=== PATIENT | female | born 1930 | race Caucasian/White ===

== ENCOUNTER 2018-02-18 15:11 | Inpatient (IN) | payer MEDICARE, BC ==
[2018-02-18 15:32] VITALS: BP 140/71
[2018-02-18] MEDS ORDERED: Maalox 30 mL Cup PO PRN (15:34)
[2018-02-18] MEDS ORDERED: Magnesium Hydroxide (MOM) 30 mL UDC PO PRN (15:34)
[2018-02-19] MEDS: Atorvastatin Calcium 10 MG TAB PO SCH (10:04)
[2018-02-19] MEDS: Calcium Carb/Vit D 500 mg/200 U Tab PO SCH (10:05)
[2018-02-19] MEDS: POLYETHYLENE GLYCOL 3350 17 GM PACK PO SCH (13:34)
[2018-02-19] MEDS: Fish Oil 1,000 MG SGL PO SCH (13:34)
[2018-02-19] MEDS: Multivitamin Tab PO SCH (13:34)
--- NOTE | 2018-02-19 16:14 | Psychiatric Evaluation ---
DATE OF SERVICE: 02/18/2018 IDENTIFYING DATA: The patient is an 87-year-old woman, transferred from [facility]. Information obtained directly interviewing the patient as well as reviewing the admission papers and they are reliable. The patient has been cooperative during the interview, but is noted to be extremely confused and talking about her father who happened to be here last night, telling her that she does not need to change anything. The patient is reported to have been brought to the [facility] by her son for acute confusion and red eye for the past 2 days. The patient is reported to have been having behavioral changes and the patient is reported to have been sent to [facility] from where she has been brought again to the hospital for sepsis and the patient has been seen in the Emergency Room and the patient is reported to have a UA that was within normal limits. Chest x-ray was clean. She has the CT of the head that was also negative for any intracranial lesion and she has been observed over there and has been referred over here for further stabilization. The patient at this time has been in here and is not making much sense. PAST PSYCHIATRIC HISTORY: Details about the prior psychiatric hospitalization none known, but the patient has been reported to have been on mirtazapine 15 mg at nighttime, Seroquel 25 mg at bedtime and the patient was given some Haldol at the hospital. The patient at this time is confused and is not able to provide much information. MEDICAL HISTORY AND PHYSICAL EXAMINATION: Requested, done by Dr. Mcduffie. LEGAL PROBLEMS: None at this time. STRENGTH AND ASSETS: The patient has good family support. MENTAL STATUS EXAMINATION: The patient is an 87-year-old, looking her stated age, cooperative. Eye contact is fair. Mood is noted to be irritable. Affect is constricted. The patient is not making any sense. The patient is going on a tangent. The patient is stating that she has been talking to her father who does not want her to change anything. The patient is, at this time, confused. However, the patient is noted to be alert and aware that she is in the hospital. The patient's attention span and concentration are noted to be poor and patient is not able to provide any reasonable information as to her premorbid condition. The patient's short as well as long-term memory are also noted to be very poor. However, the patient is not presenting with any threats to harm self or others. DIAGNOSTIC IMPRESSION: AXIS I: Psychotic disorder, not otherwise specified. AXIS IB. Dementia and behavioral changes, secondary trait. IMMEDIATE TREATMENT PLAN: The patient is going to be observed on inpatient unit, provided with supportive psychotherapy. The patient is going to be closely monitored and encouraged to verbalize the concerns rather than to act out. Once stabilized, the patient is going to be discharged to [facility] to be followed up on an outpatient basis. PSYCHIATRIC# [id number]
[2018-02-20] MEDS: Calcium Carb/Vit D 500 mg/200 U Tab PO SCH (16:07)
[2018-02-20] MEDS: Atorvastatin Calcium 10 MG TAB PO SCH (16:07)
[2018-02-20] MEDS: Fish Oil 1,000 MG SGL PO SCH (16:08)
[2018-02-20] MEDS: Multivitamin Tab PO SCH (16:10)
[2018-02-20] MEDS: POLYETHYLENE GLYCOL 3350 17 GM PACK PO SCH (16:10)
--- NOTE | 2018-02-20 18:21 | Consultation ---
DATE OF CONSULTATION: 02/20/2018 REFERRING PHYSICIAN: Yessenia Marte MD TYPE OF CONSULTATION: Psychology. HISTORY OF PRESENT ILLNESS: The patient is an 87-year-old female. The patient was transferred here to the geropsychiatric unit from [facility]. The following is by record review and by the patient's self report. According to the record review, the patient had been exhibiting behavioral changes and was sent from her custodial facility to the hospital through the ER for possible sepsis. The patient was stabilized and then transferred here. At the time of the clinical interview, the patient denies any suicidal ideation, plan or intention. The patient presents as extremely confused and is not making much sense in her response to the clinical interview questions. PAST MEDICAL HISTORY: Please see history and physical by Dr. Mcduffie. PAST PSYCHIATRIC HISTORY: Records are unavailable at the time of this clinical interview. SUBSTANCE ABUSE HISTORY: The patient did not answer this question. PSYCHOSOCIAL HISTORY: The patient is a resident of a custodial facility. The patient is . The patient did not answer questions about having children. The patient did mention that she has family support. She did not answer questions about occupational or educational history or druze affiliation. The patient denied any history of physical or sexual abuse. She denies any current legal problems. MENTAL STATUS EXAMINATION: The patient appears to be her stated age. The patient's attitude is cooperative. Eye contact is fair. Speech is spontaneous, but somewhat slow and delayed. Mood is mildly irritable. Affect is constricted. Thought process shows to be very confused. The patient stated something about her father came to see her to tell her not to change things. The patient denied any suicidal ideation, plan or intention. She denies any auditory or visual hallucinations; however, further evaluation for visual hallucination is recommended. The patient's behavior has been reasonably redirectable. Impulse control is fair. Concentration is poor. The patient did not participate in the memory assessment. Sensorium is alert and oriented to self and place. She is aware that she is in the hospital for treatment, but does not comprehend what type of treatment. The patient did not participate in the interpretation of proverbs. Insight is poor. Judgment is compromised. DIAGNOSTIC IMPRESSION: AXIS I: 1. Psychotic disorder, not otherwise specified. 2. Dementia with behavioral disturbance. AXIS II: Deferred. AXIS III: Please see H and P by Dr. Mcduffie. TREATMENT PLAN: The patient has been seen by Dr. Marte for psychiatric evaluation and for the management of the patient's psychotropic medications. We will provide supportive psychotherapy to include reality orientation, differentiation and integration. We will provide coping strategies for phase of life issues. We will provide motivational enhancement for the patient to become compliant and stay compliant with all aspects of her care and treatment. We will continue supportive therapy throughout the patient's hospital stay. Thank you, Dr. Marte, for this consult and the opportunity to participate with you in this patient's care. JOB# [id number]
--- NOTE | 2018-02-21 05:15 | Progress Notes ---
DATE: 02/20/2018 SUBJECTIVE: Staff was spoken to. The patient is interviewed. Mood is noted to be anxious. Affect is appropriate. Not suicidal or homicidal, but the patient has been screaming and yelling and is impulsive. Continues to be paranoid and both short and long-term memory also noted to be poor. The patient is getting easily agitated, but the agitation is more towards the end of the day. ASSESSMENT: The patient is still impulsive. PLAN: To continue the patient with the supportive therapy and encourage the patient to verbalize the concerns rather than to act out. JOB# [id number]
--- NOTE | 2018-02-21 09:01 | History & Physical ---
ADMIT DATE: 02/21/2018 CHIEF COMPLAINT: Agitation. HISTORY OF PRESENT ILLNESS: This is an 87-year-old female, who was originally admitted from Geropsych Unit of [facility] on to which the patient was sent into a [facility] facility for stabilization and then transferred again to the Emergency Room for possible sepsis and once stabilized, the patient was transferred to [facility] for closer monitoring. REVIEW OF SYSTEMS: GENERAL: This is an 87-year-old female that appears as stated. No fever, no chills, no weakness. HEENT: No headache. No dizziness. EYES: No blurring of vision. No eye pain. NECK: No neck pain. No nuchal rigidity. CHEST: No chest pain. No palpitation. PULMONARY: No coughing. No shortness of breath. GASTROINTESTINAL: No abdominal pain. No constipation. No diarrhea. MUSCULOSKELETAL: No muscle pain. No joint pain. SOCIAL HISTORY: The patient originally lives at home, then was transferred to the hospital and then moved to a [facility] facility for stabilization. PSYCHIATRIC HISTORY: Includes dementia. PAST SURGICAL HISTORY: Unremarkable. FAMILY HISTORY: Unremarkable. PAST MEDICAL HISTORY: Includes hypertension, hyperlipidemia and osteoarthritis. PHYSICAL EXAMINATION: VITAL SIGNS: Temperature 98.5, heart rate 92, blood pressure 120/59, respirations 18, 96% on room air. GENERAL: This is an 87-year-old female that appears as stated, in no acute distress. HEAD: Atraumatic, normocephalic. EYES: Bilateral conjunctivae are clear. Bilateral pupils are equally round and reactive. NECK: Supple. No JVD. CARDIOVASCULAR: S1 and S2 without murmur. PULMONARY: Clear to auscultation. GASTROINTESTINAL: Soft and nontender without guarding. Positive bowel sounds. MUSCULOSKELETAL: No clubbing, no cyanosis noted. ASSESSMENT: 1. Dementia. 2. Hypertension. 3. Hyperlipidemia. 4. Osteoarthritis. PLAN: We will admit the patient to Geropsych Unit and we will follow up with a psychiatrist to monitor the patient's condition and behavior. We will do medication reconciliation accordingly. Treatment plans were discussed with the patient's nurse. Treatment plans were discussed with Dr. Mcduffie. JOB# [id number]
[2018-02-21] MEDS: Fish Oil 1,000 MG SGL PO SCH (09:16)
[2018-02-21] MEDS: Multivitamin Tab PO SCH (09:18)
[2018-02-21] MEDS: Calcium Carb/Vit D 500 mg/200 U Tab PO SCH (09:18)
[2018-02-21] MEDS: Atorvastatin Calcium 10 MG TAB PO SCH (09:18)
[2018-02-21] MEDS: POLYETHYLENE GLYCOL 3350 17 GM PACK PO SCH (09:18)
--- NOTE | 2018-02-21 17:12 | Progress Notes ---
DATE: 02/21/2018 SUBJECTIVE: Staff was spoken to. The patient is interviewed. Mood is noted to be irritable. Affect is constricted. Coping skills are noted to be still poor. Insight and judgment are noted to be impaired. The patient has been able to comply with the medication today. The patient has paranoia and patient is also very confused and demented. The patient is getting more of this confusion towards the end of the day. ASSESSMENT: The patient is still paranoid. PLAN: To continue the patient with the supportive therapy. We encouraged the patient to verbalize the visits and follow the patient up. JOB# [id number]
[2018-02-22] MEDS: Fish Oil 1,000 MG SGL PO SCH ×2 (09:44→10:00)
[2018-02-22] MEDS: Atorvastatin Calcium 10 MG TAB PO SCH ×2 (09:44→10:00)
[2018-02-22] MEDS: POLYETHYLENE GLYCOL 3350 17 GM PACK PO SCH ×2 (09:45→10:00)
[2018-02-22] MEDS: Multivitamin Tab PO SCH ×2 (09:45→10:00)
[2018-02-22] MEDS: Calcium Carb/Vit D 500 mg/200 U Tab PO SCH ×2 (09:45→10:00)
--- NOTE | 2018-02-22 13:06 | General Progress Note ---
Subjective - Review of Systems Events since last encounter: patient paranoid irritable Objective - Physical Exam Vitals and I&O: Vital Signs Temp 97.9 F 02/22/18 06:32 Pulse 72 02/22/18 06:32 Resp 20 02/22/18 06:32 BP 131/73 02/22/18 06:32 Pulse Ox 96 02/22/18 06:32 Intake & Output 02/21/18 02/22/18 02/22/18 18:59 06:59 18:59 Intake Total 1200 360 Balance 1200 360 Intake: Oral 1200 360 Other: # Voids 1 # Bowel Movements 1 Active Medications: Current Medications Acetaminophen (Tylenol) 650 mg PO Q4HR PRN PRN Reason: Mild Pain / Temp above 100 Stop: 04/19/18 15:33 Al Hydrox/Mg Hydrox/Simethicone (Maalox) 30 ml PO Q4HR PRN PRN Reason: GI DISTRESS Stop: 04/19/18 15:33 Atorvastatin Calcium (Lipitor) 20 mg PO DAILY [facility]; Protocol Stop: 04/20/18 08:59 Last Admin: 02/22/18 10:00 Dose: Not Given Calcium/Vitamin D (Oscal W/Vitamin D) 1 tab PO DAILY YE Stop: 04/20/18 08:59 Last Admin: 02/22/18 10:00 Dose: Not Given Docusate Sodium (Colace) 100 mg PO BID [facility] Stop: 04/19/18 16:59 Last Admin: 02/22/18 10:00 Dose: Not Given Fish Oil ([place] 3) 1,000 mg PO DAILY YE Stop: 04/20/18 08:59 Last Admin: 02/22/18 10:00 Dose: Not Given Lisinopril (Zestril) 20 mg PO DAILY [facility] Stop: 04/20/18 08:59 Last Admin: 02/22/18 10:00 Dose: Not Given Lorazepam (Ativan) 0.5 mg PO Q4HR PRN; Protocol PRN Reason: Anxiety Stop: 04/19/18 15:36 Last Admin: 02/21/18 20:33 Dose: 0.5 mg Magnesium Hydroxide (Milk Of Magnesia) 30 ml PO HS PRN PRN Reason: Constipation Metoprolol Tartrate (Lopressor) 37.5 mg PO DAILY [facility] Stop: 04/20/18 08:59 Last Admin: 02/22/18 09:49 Dose: Not Given Multivitamins/Vitamin C (Theragran) 1 tab PO DAILY YE Stop: 04/20/18 08:59 Last Admin: 02/22/18 10:00 Dose: Not Given Polyethylene Glycol (Miralax) 17 gm PO DAILY YE Stop: 04/20/18 08:59 Last Admin: 02/22/18 10:00 Dose: Not Given Prednisone (Deltasone) 50 mg PO DAILY YE Stop: 04/20/18 08:59 Last Admin: 02/22/18 10:00 Dose: Not Given Quetiapine Fumarate (Seroquel) 25 mg PO HS YE; Protocol Stop: 04/19/18 20:59 Last Admin: 02/21/18 20:33 Dose: 25 mg Zolpidem Tartrate (Ambien) 5 mg PO HS PRN PRN Reason: Insomnia Stop: 04/19/18 15:33 Nutritional Asmnt/Malnutr-PDOC - Dietary Evaluation Malnutrition Findings (Please click <Entered> for more info): Nutritional Asmnt/Malnutrition Start: 02/21/18 09: 03 Text: Status: Active Freq: Protocol: Document 02/21/18 09:03 ABI (Rec: 02/21/18 09:14 ABI [id number] [email or web address]) Nutritional Asmnt/Malnutrition Patient General Information Nutritional Screening Moderate Risk Diagnosis Psychosis Pertinent Medical Hx/Surgical Hx Dementia w/behavioral changes, A-Fib, HTN, Hyperlipidemia, Viral Conjuctivitis, and general muscle weakness Subjective Information Patient in activity room at time if visit. No identified nutrition related issues. Current Diet Order/ Nutrition Support 2gm Sodium Patient / S.O Not Indicated Pertinent Medications maalox, lipitor, oscal w/d, colace, omega 3, MOM, theragran, miralax Pertinent Labs No current labs Nutritional Hx/Data Height 1.57 m Height (Calculated Centimeters) 157.5 Current Weight (lbs) 53.977 kg Weight (Calculated Kilograms) 54.0 Weight (Calculated Grams) 00122.5 [place] Body Weight 110 % [place] Body Weight 108 Body Mass Index (BMI) 21.7 Recent Weight Change No Weight Status Approriate GI Symptoms GI Symptoms None Last BM none noted in EMR since admissio Difficult in: None Food Allergies No Cultural/Ethnic/Holiness Belief none indicated Usual diet at home unknown Skin Integrity/Comment: Intact, Georgi 17 Current %PO Fair (50-74%) Estimated Nutritional Goals BEE in Kcals: Using Current wt Calories/Kcals/Kg 25-30 kcal/kg using CBW 54.1kg Kcals Calculated 1177-6279 kcal/day Protein: Using Current wt Protein g/k-1.2 gm/kg using CBW Protein Calculated 55-65 gm/day Fluid: ml 3983-8687 ml/day (1 ml/kcal) Nutritional Problem 1. Problem Problem No nutrition diagnosis at this time Intervention/Recommendation Comments 1. Continue 2 gm sodium diet at this time (hx of HTN) as oral intake appears adequate to meet nutrient needs. Expected Outcomes/Goals Expected Outcomes/Goals Oral intake >75% of meals, weight stable, nutrition related labs WNL F/U LR 02/28
--- NOTE | 2018-02-22 18:07 | Progress Notes ---
DATE: 02/22/2018 SUBJECTIVE: Staff was spoken to. The patient is interviewed. Mood is noted to be irritable. Affect is constricted. The patient is reluctant to comply with the medications. Insight is noted to be still impaired. Impulse control is noted to be limited. The patient is very confused and paranoid. ASSESSMENT: The patient is still impulsive. PLAN: To admit the patient with the supportive therapy. Continue the patient with Seroquel and followup. The patient is not ready to be discharged to a lower level of care in view of her confusion and agitation. JOB# [id number]
[2018-02-23] MEDS: Atorvastatin Calcium 10 MG TAB PO SCH (09:33)
[2018-02-23] MEDS: Fish Oil 1,000 MG SGL PO SCH (09:33)
[2018-02-23] MEDS: Multivitamin Tab PO SCH (09:34)
[2018-02-23] MEDS: POLYETHYLENE GLYCOL 3350 17 GM PACK PO SCH (09:34)
[2018-02-23] MEDS: Calcium Carb/Vit D 500 mg/200 U Tab PO SCH (09:34)
--- NOTE | 2018-02-23 15:38 | General Progress Note ---
Subjective - Review of Systems Events since last encounter: patient is paranoid anxious Objective - Physical Exam Vitals and I&O: Vital Signs Temp 98.0 F 02/23/18 05:59 Pulse 62 02/23/18 09:34 Resp 19 02/23/18 05:59 BP 134/71 02/23/18 09:34 Pulse Ox 98 02/23/18 05:59 Intake & Output 02/22/18 02/23/18 02/23/18 18:59 06:59 18:59 Intake Total 1350 240 Balance 1350 240 Intake: Oral 1350 240 Other: # Voids 3 2 # Bowel Movements 0 0 Stool Characteristics Formed Active Medications: Current Medications Acetaminophen (Tylenol) 650 mg PO Q4HR PRN PRN Reason: Mild Pain / Temp above 100 Stop: 04/19/18 15:33 Al Hydrox/Mg Hydrox/Simethicone (Maalox) 30 ml PO Q4HR PRN PRN Reason: GI DISTRESS Stop: 04/19/18 15:33 Atorvastatin Calcium (Lipitor) 20 mg PO DAILY [facility]; Protocol Stop: 04/20/18 08:59 Last Admin: 02/23/18 09:33 Dose: 20 mg Calcium/Vitamin D (Oscal W/Vitamin D) 1 tab PO DAILY [facility] Stop: 04/20/18 08:59 Last Admin: 02/23/18 09:34 Dose: 1 tab Docusate Sodium (Colace) 100 mg PO BID [facility] Stop: 04/19/18 16:59 Last Admin: 02/23/18 09:35 Dose: Not Given Fish Oil ([place] 3) 1,000 mg PO DAILY [facility] Stop: 04/20/18 08:59 Last Admin: 02/23/18 09:33 Dose: 1,000 mg Lisinopril (Zestril) 20 mg PO DAILY [facility] Stop: 04/20/18 08:59 Last Admin: 02/23/18 09:34 Dose: 20 mg Lorazepam (Ativan) 0.5 mg PO Q4HR PRN; Protocol PRN Reason: Anxiety Stop: 04/19/18 15:36 Last Admin: 02/23/18 15:34 Dose: 0.5 mg Magnesium Hydroxide (Milk Of Magnesia) 30 ml PO HS PRN PRN Reason: Constipation Metoprolol Tartrate (Lopressor) 37.5 mg PO DAILY [facility] Stop: 04/20/18 08:59 Last Admin: 02/23/18 09:33 Dose: 37.5 mg Multivitamins/Vitamin C (Theragran) 1 tab PO DAILY [facility] Stop: 04/20/18 08:59 Last Admin: 02/23/18 09:34 Dose: 1 tab Polyethylene Glycol (Miralax) 17 gm PO DAILY YE Stop: 04/20/18 08:59 Last Admin: 02/23/18 09:34 Dose: 17 gm Prednisone (Deltasone) 50 mg PO DAILY [facility] Stop: 04/20/18 08:59 Last Admin: 02/23/18 15:34 Dose: Not Given Quetiapine Fumarate (Seroquel) 25 mg PO HS YE; Protocol Stop: 04/19/18 20:59 Last Admin: 02/22/18 21:22 Dose: Not Given Zolpidem Tartrate (Ambien) 5 mg PO HS PRN PRN Reason: Insomnia Stop: 04/19/18 15:33 Nutritional Asmnt/Malnutr-PDOC - Dietary Evaluation Malnutrition Findings (Please click <Entered> for more info): Nutritional Asmnt/Malnutrition Start: 02/21/18 09: 03 Text: Status: Active Freq: Protocol: Document 02/21/18 09:03 ABI (Rec: 02/21/18 09:14 ABI [email or web address]- [email or web address]) Nutritional Asmnt/Malnutrition Patient General Information Nutritional Screening Moderate Risk Diagnosis Psychosis Pertinent Medical Hx/Surgical Hx Dementia w/behavioral changes, A-Fib, HTN, Hyperlipidemia, Viral Conjuctivitis, and general muscle weakness Subjective Information Patient in activity room at time if visit. No identified nutrition related issues. Current Diet Order/ Nutrition Support 2gm Sodium Patient / S.O Not Indicated Pertinent Medications maalox, lipitor, oscal w/d, colace, omega 3, MOM, theragran, miralax Pertinent Labs No current labs Nutritional Hx/Data Height 1.57 m Height (Calculated Centimeters) 157.5 Current Weight (lbs) 53.977 kg Weight (Calculated Kilograms) 54.0 Weight (Calculated Grams) 38194.5 [place] Body Weight 110 % [place] Body Weight 108 Body Mass Index (BMI) 21.7 Recent Weight Change No Weight Status Approriate GI Symptoms GI Symptoms None Last BM none noted in EMR since admissio Difficult in: None Food Allergies No Cultural/Ethnic/Yazidi Belief none indicated Usual diet at home unknown Skin Integrity/Comment: Intact, Georgi 17 Current %PO Fair (50-74%) Estimated Nutritional Goals BEE in Kcals: Using Current wt Calories/Kcals/Kg 25-30 kcal/kg using CBW 54.1kg Kcals Calculated 9309-6520 kcal/day Protein: Using Current wt Protein g/k-1.2 gm/kg using CBW Protein Calculated 55-65 gm/day Fluid: ml 7763-4306 ml/day (1 ml/kcal) Nutritional Problem 1. Problem Problem No nutrition diagnosis at this time Intervention/Recommendation Comments 1. Continue 2 gm sodium diet at this time (hx of HTN) as oral intake appears adequate to meet nutrient needs. Expected Outcomes/Goals Expected Outcomes/Goals Oral intake >75% of meals, weight stable, nutrition related labs WNL F/U LR 02/28
--- NOTE | 2018-02-24 02:17 | Progress Notes ---
DATE: 02/23/2018 PSYCHIATRIC PROGRESS NOTE SUBJECTIVE: Staff was spoken to. The patient is interviewed. Mood is noted to be irritable. Affect is constricted. Insight and judgment noted to be still impaired. Impulse control is noted to be limited. Coping skills are noted to be limited. The patient has been very confused and demented. Attention span and concentration are noted to be poor. The patient is going on a tangent. ASSESSMENT: The patient is still psychotic and demented. PLAN: Continue the patient with supportive therapy. I encouraged the patient to verbalize the concerns rather than to act out. JOB# [id number]
[2018-02-24] MEDS: Multivitamin Tab PO SCH (10:24)
[2018-02-24] MEDS: Fish Oil 1,000 MG SGL PO SCH (10:26)
[2018-02-24] MEDS: Atorvastatin Calcium 10 MG TAB PO SCH (10:26)
[2018-02-24] MEDS: Calcium Carb/Vit D 500 mg/200 U Tab PO SCH (10:26)
[2018-02-24] MEDS: POLYETHYLENE GLYCOL 3350 17 GM PACK PO SCH (10:38)
--- NOTE | 2018-02-24 16:04 | Progress Notes ---
DATE: 02/24/2018 SUBJECTIVE: Staff was spoken to. The patient is interviewed. Mood is noted to be irritable. Affect is constricted. The patient is still confused and getting agitated. The patient has paranoia, but denies any ____ hallucinations. The patient's short as well as long-term memory are noted to be poor at this time. No side effects of the Seroquel are noted. ASSESSMENT: The patient is still demented and confused. PLAN: To continue the patient with the supportive therapy and followup. JOB# [id number]
[2018-02-25] MEDS: Calcium Carb/Vit D 500 mg/200 U Tab PO SCH (09:21)
[2018-02-25] MEDS: Multivitamin Tab PO SCH (09:21)
[2018-02-25] MEDS: Atorvastatin Calcium 10 MG TAB PO SCH (09:21)
[2018-02-25] MEDS: Fish Oil 1,000 MG SGL PO SCH (09:21)
[2018-02-25] MEDS: POLYETHYLENE GLYCOL 3350 17 GM PACK PO SCH (09:21)
--- NOTE | 2018-02-25 14:10 | General Progress Note ---
Subjective - Review of Systems Events since last encounter: patient still confused denies pain Objective - Physical Exam Vitals and I&O: Vital Signs Temp 98.2 F 02/25/18 06:05 Pulse 75 02/25/18 12:09 Resp 19 02/25/18 06:05 BP 111/61 02/25/18 12:09 Pulse Ox 98 02/25/18 06:05 Intake & Output 02/24/18 02/25/18 02/25/18 18:59 06:59 18:59 Intake Total 120 Balance 120 Intake: Oral 120 Other: # Voids 3 # Bowel Movements 0 Active Medications: Current Medications Acetaminophen (Tylenol) 650 mg PO Q4HR PRN PRN Reason: Mild Pain / Temp above 100 Stop: 04/19/18 15:33 Al Hydrox/Mg Hydrox/Simethicone (Maalox) 30 ml PO Q4HR PRN PRN Reason: GI DISTRESS Stop: 04/19/18 15:33 Atorvastatin Calcium (Lipitor) 20 mg PO DAILY [facility]; Protocol Stop: 04/20/18 08:59 Last Admin: 02/25/18 09:21 Dose: 20 mg Calcium/Vitamin D (Oscal W/Vitamin D) 1 tab PO DAILY [facility] Stop: 04/20/18 08:59 Last Admin: 02/25/18 09:21 Dose: 1 tab Docusate Sodium (Colace) 100 mg PO BID [facility] Stop: 04/19/18 16:59 Last Admin: 02/25/18 09:21 Dose: 100 mg Fish Oil ([place] 3) 1,000 mg PO DAILY YE Stop: 04/20/18 08:59 Last Admin: 02/25/18 09:21 Dose: 1,000 mg Lisinopril (Zestril) 20 mg PO DAILY [facility] Stop: 04/20/18 08:59 Last Admin: 02/25/18 12:09 Dose: Not Given Lorazepam (Ativan) 0.5 mg PO Q4HR PRN; Protocol PRN Reason: Anxiety Stop: 04/19/18 15:36 Last Admin: 02/25/18 12:08 Dose: 0.5 mg Magnesium Hydroxide (Milk Of Magnesia) 30 ml PO HS PRN PRN Reason: Constipation Metoprolol Tartrate (Lopressor) 37.5 mg PO DAILY [facility] Stop: 04/20/18 08:59 Last Admin: 02/25/18 12:09 Dose: Not Given Multivitamins/Vitamin C (Theragran) 1 tab PO DAILY YE Stop: 04/20/18 08:59 Last Admin: 02/25/18 09:21 Dose: 1 tab Polyethylene Glycol (Miralax) 17 gm PO DAILY [facility] Stop: 04/20/18 08:59 Last Admin: 02/25/18 09:21 Dose: 17 gm Prednisone (Deltasone) 50 mg PO DAILY [facility] Stop: 04/20/18 08:59 Last Admin: 02/25/18 09:21 Dose: 50 mg Quetiapine Fumarate (Seroquel) 25 mg PO HS [facility]; Protocol Stop: 04/19/18 20:59 Last Admin: 02/24/18 20:27 Dose: 25 mg Zolpidem Tartrate (Ambien) 5 mg PO HS PRN PRN Reason: Insomnia Stop: 04/19/18 15:33 Last Admin: 02/24/18 20:27 Dose: 5 mg Nutritional Asmnt/Malnutr-PDOC - Dietary Evaluation Malnutrition Findings (Please click <Entered> for more info): Nutritional Asmnt/Malnutrition Start: 02/21/18 09: 03 Text: Status: Active Freq: Protocol: Document 02/21/18 09:03 ABI (Rec: 02/21/18 09:14 ABI BARON- [email or web address]) Nutritional Asmnt/Malnutrition Patient General Information Nutritional Screening Moderate Risk Diagnosis Psychosis Pertinent Medical Hx/Surgical Hx Dementia w/behavioral changes, A-Fib, HTN, Hyperlipidemia, Viral Conjuctivitis, and general muscle weakness Subjective Information Patient in activity room at time if visit. No identified nutrition related issues. Current Diet Order/ Nutrition Support 2gm Sodium Patient / S.O Not Indicated Pertinent Medications maalox, lipitor, oscal w/d, colace, omega 3, MOM, theragran, miralax Pertinent Labs No current labs Nutritional Hx/Data Height 1.57 m Height (Calculated Centimeters) 157.5 Current Weight (lbs) 53.977 kg Weight (Calculated Kilograms) 54.0 Weight (Calculated Grams) 11886.5 [place] Body Weight 110 % [place] Body Weight 108 Body Mass Index (BMI) 21.7 Recent Weight Change No Weight Status Approriate GI Symptoms GI Symptoms None Last BM none noted in EMR since admissio Difficult in: None Food Allergies No Cultural/Ethnic/Rastafarian Belief none indicated Usual diet at home unknown Skin Integrity/Comment: Intact, Georgi 17 Current %PO Fair (50-74%) Estimated Nutritional Goals BEE in Kcals: Using Current wt Calories/Kcals/Kg 25-30 kcal/kg using CBW 54.1kg Kcals Calculated 3840-6018 kcal/day Protein: Using Current wt Protein g/k-1.2 gm/kg using CBW Protein Calculated 55-65 gm/day Fluid: ml 3612-5508 ml/day (1 ml/kcal) Nutritional Problem 1. Problem Problem No nutrition diagnosis at this time Intervention/Recommendation Comments 1. Continue 2 gm sodium diet at this time (hx of HTN) as oral intake appears adequate to meet nutrient needs. Expected Outcomes/Goals Expected Outcomes/Goals Oral intake >75% of meals, weight stable, nutrition related labs WNL F/U LR 02/28
--- NOTE | 2018-02-26 01:27 | Progress Notes ---
DATE: 02/25/2018 PSYCHIATRIC PROGRESS NOTE SUBJECTIVE: Staff was spoken to. The patient is interviewed. Mood is noted to be irritable. Affect is constricted. The patient is reported to be aggressive and the patient has to be given a dose of Ativan to calm her down. The patient is not able to contact for safety today. Insight and judgment are noted to be still impaired. ASSESSMENT: The patient is still impulsive. PLAN: To continue the patient with the supportive therapy and followup. JOB# [id number]
[2018-02-26] MEDS: POLYETHYLENE GLYCOL 3350 17 GM PACK PO SCH (09:45)
[2018-02-26] MEDS: Fish Oil 1,000 MG SGL PO SCH (09:50)
[2018-02-26] MEDS: Atorvastatin Calcium 10 MG TAB PO SCH (09:50)
[2018-02-26] MEDS: Calcium Carb/Vit D 500 mg/200 U Tab PO SCH (09:50)
[2018-02-26] MEDS: Multivitamin Tab PO SCH (09:50)
--- NOTE | 2018-02-26 11:36 | General Progress Note ---
Subjective - Review of Systems Events since last encounter: patient still irritable and impulsive denies pain Objective - Physical Exam Vitals and I&O: Vital Signs Temp 97.8 F 02/26/18 06:40 Pulse 64 02/26/18 06:40 Resp 18 02/26/18 06:40 BP 110/66 02/26/18 06:40 Pulse Ox 96 02/26/18 06:40 Intake & Output 02/25/18 02/26/18 02/26/18 18:59 06:59 18:59 Intake Total 700 120 Balance 700 120 Intake: Oral 700 120 Other: # Voids 3 3 # Bowel Movements 1 Active Medications: Current Medications Acetaminophen (Tylenol) 650 mg PO Q4HR PRN PRN Reason: Mild Pain / Temp above 100 Stop: 04/19/18 15:33 Al Hydrox/Mg Hydrox/Simethicone (Maalox) 30 ml PO Q4HR PRN PRN Reason: GI DISTRESS Stop: 04/19/18 15:33 Atorvastatin Calcium (Lipitor) 20 mg PO DAILY [facility]; Protocol Stop: 04/20/18 08:59 Last Admin: 02/25/18 09:21 Dose: 20 mg Calcium/Vitamin D (Oscal W/Vitamin D) 1 tab PO DAILY [facility] Stop: 04/20/18 08:59 Last Admin: 02/25/18 09:21 Dose: 1 tab Docusate Sodium (Colace) 100 mg PO BID [facility] Stop: 04/19/18 16:59 Last Admin: 02/25/18 16:28 Dose: 100 mg Fish Oil ([place] 3) 1,000 mg PO DAILY [facility] Stop: 04/20/18 08:59 Last Admin: 02/25/18 09:21 Dose: 1,000 mg Lisinopril (Zestril) 20 mg PO DAILY [facility] Stop: 04/20/18 08:59 Last Admin: 02/25/18 12:09 Dose: Not Given Lorazepam (Ativan) 0.5 mg PO Q4HR PRN; Protocol PRN Reason: Anxiety Stop: 04/19/18 15:36 Last Admin: 02/25/18 12:08 Dose: 0.5 mg Magnesium Hydroxide (Milk Of Magnesia) 30 ml PO HS PRN PRN Reason: Constipation Metoprolol Tartrate (Lopressor) 37.5 mg PO DAILY [facility] Stop: 04/20/18 08:59 Last Admin: 02/25/18 12:09 Dose: Not Given Multivitamins/Vitamin C (Theragran) 1 tab PO DAILY [facility] Stop: 04/20/18 08:59 Last Admin: 02/25/18 09:21 Dose: 1 tab Polyethylene Glycol (Miralax) 17 gm PO DAILY [facility] Stop: 04/20/18 08:59 Last Admin: 02/25/18 09:21 Dose: 17 gm Prednisone (Deltasone) 50 mg PO DAILY [facility] Stop: 04/20/18 08:59 Last Admin: 02/25/18 09:21 Dose: 50 mg Quetiapine Fumarate (Seroquel) 25 mg PO HS [facility]; Protocol Stop: 04/19/18 20:59 Last Admin: 02/25/18 20:58 Dose: 25 mg Zolpidem Tartrate (Ambien) 5 mg PO HS PRN PRN Reason: Insomnia Stop: 04/19/18 15:33 Last Admin: 02/25/18 20:58 Dose: 5 mg Nutritional Asmnt/Malnutr-PDOC - Dietary Evaluation Malnutrition Findings (Please click <Entered> for more info): Nutritional Asmnt/Malnutrition Start: 02/21/18 09: 03 Text: Status: Active Freq: Protocol: Document 02/21/18 09:03 ABI (Rec: 02/21/18 09:14 ABI BARON- [email or web address]) Nutritional Asmnt/Malnutrition Patient General Information Nutritional Screening Moderate Risk Diagnosis Psychosis Pertinent Medical Hx/Surgical Hx Dementia w/behavioral changes, A-Fib, HTN, Hyperlipidemia, Viral Conjuctivitis, and general muscle weakness Subjective Information Patient in activity room at time if visit. No identified nutrition related issues. Current Diet Order/ Nutrition Support 2gm Sodium Patient / S.O Not Indicated Pertinent Medications maalox, lipitor, oscal w/d, colace, omega 3, MOM, theragran, miralax Pertinent Labs No current labs Nutritional Hx/Data Height 1.57 m Height (Calculated Centimeters) 157.5 Current Weight (lbs) 53.977 kg Weight (Calculated Kilograms) 54.0 Weight (Calculated Grams) 40522.5 [place] Body Weight 110 % [place] Body Weight 108 Body Mass Index (BMI) 21.7 Recent Weight Change No Weight Status Approriate GI Symptoms GI Symptoms None Last BM none noted in EMR since admissio Difficult in: None Food Allergies No Cultural/Ethnic/Confucianism Belief none indicated Usual diet at home unknown Skin Integrity/Comment: Intact, Georgi 17 Current %PO Fair (50-74%) Estimated Nutritional Goals BEE in Kcals: Using Current wt Calories/Kcals/Kg 25-30 kcal/kg using CBW 54.1kg Kcals Calculated 0736-5966 kcal/day Protein: Using Current wt Protein g/k-1.2 gm/kg using CBW Protein Calculated 55-65 gm/day Fluid: ml 0765-6712 ml/day (1 ml/kcal) Nutritional Problem 1. Problem Problem No nutrition diagnosis at this time Intervention/Recommendation Comments 1. Continue 2 gm sodium diet at this time (hx of HTN) as oral intake appears adequate to meet nutrient needs. Expected Outcomes/Goals Expected Outcomes/Goals Oral intake >75% of meals, weight stable, nutrition related labs WNL F/U LR 02/28
--- NOTE | 2018-02-26 22:08 | Progress Notes ---
DATE: 02/26/2018 SUBJECTIVE: Staff was spoken to. The patient is interviewed. Mood is noted to be irritable. Affect is constricted. The patient's impulsivity still concerns. Insight and judgment are noted to be still impaired. The patient is reported to have been out of control yesterday and has to be given a shot. Today, she seems to be calming down. ASSESSMENT: The patient is still impulsive. PLAN: To continue the patient with the supportive therapy. I encouraged the patient to verbalize the concerns. The patient is going to be closely monitored for aggressive behavior. JOB# [id number]
[2018-02-27] MEDS: Multivitamin Tab PO SCH (09:30)
[2018-02-27] MEDS: Atorvastatin Calcium 10 MG TAB PO SCH (10:36)
[2018-02-27] MEDS: Fish Oil 1,000 MG SGL PO SCH (10:37)
[2018-02-27] MEDS: Calcium Carb/Vit D 500 mg/200 U Tab PO SCH (10:37)
[2018-02-27] MEDS: POLYETHYLENE GLYCOL 3350 17 GM PACK PO SCH (10:42)
--- NOTE | 2018-02-28 03:55 | Progress Notes ---
DATE: 02/27/2018 SUBJECTIVE: Staff was spoken to. The patient is interviewed. Mood is noted to be irritable. Affect is constricted. The patient has been very agitated. The patient is screaming and yelling and is stating that she is going to be killing herself. The patient has been given a dose of Ativan at 12 o'clock and again the patient has to be given an extra dose. The patient at this time is not able to contract for safety. The patient has been having severe agitation. ASSESSMENT: The patient is not ready to be discharged to a lower level of care yet. PLAN: To increase the dose on the Seroquel to 25 mg twice a day and follow the patient with the supportive therapy. JOB# [id number]
[2018-02-28] MEDS: Calcium Carb/Vit D 500 mg/200 U Tab PO SCH (09:24)
[2018-02-28] MEDS: POLYETHYLENE GLYCOL 3350 17 GM PACK PO SCH (09:24)
[2018-02-28] MEDS: Multivitamin Tab PO SCH (09:24)
[2018-02-28] MEDS: Fish Oil 1,000 MG SGL PO SCH (09:24)
[2018-02-28] MEDS: Atorvastatin Calcium 10 MG TAB PO SCH (09:24)
--- NOTE | 2018-02-28 09:56 | Internal Medicine Prog Note ---
Internal Medicine Subjective - Subjective Service Date: 02/28/18 Patient seen and examined:: with staff Patient is:: awake Per staff patient has:: tolerating meds Internal Medicine Objective - Physical Exam Vitals and I&O: Vital Signs Temp 97.6 F 02/28/18 06:07 Pulse 88 02/28/18 09:27 Resp 20 02/28/18 06:07 BP 145/86 02/28/18 09:27 Pulse Ox 99 02/28/18 06:07 Intake & Output 02/27/18 02/28/18 02/28/18 18:59 06:59 18:59 Intake Total 1200 240 Output Total 1 Balance 1199 240 Intake: Oral 1200 240 Output: Stool 1 Other: # Voids 3 # Bowel Movements 0 Active Medications: Current Medications Acetaminophen (Tylenol) 650 mg PO Q4HR PRN PRN Reason: Mild Pain / Temp above 100 Stop: 04/19/18 15:33 Al Hydrox/Mg Hydrox/Simethicone (Maalox) 30 ml PO Q4HR PRN PRN Reason: GI DISTRESS Stop: 04/19/18 15:33 Atorvastatin Calcium (Lipitor) 20 mg PO DAILY [facility]; Protocol Stop: 04/20/18 08:59 Last Admin: 02/28/18 09:24 Dose: 20 mg Calcium/Vitamin D (Oscal W/Vitamin D) 1 tab PO DAILY [facility] Stop: 04/20/18 08:59 Last Admin: 02/28/18 09:24 Dose: 1 tab Docusate Sodium (Colace) 100 mg PO BID [facility] Stop: 04/19/18 16:59 Last Admin: 02/28/18 09:24 Dose: 100 mg Fish Oil ([place] 3) 1,000 mg PO DAILY [facility] Stop: 04/20/18 08:59 Last Admin: 02/28/18 09:24 Dose: 1,000 mg Lisinopril (Zestril) 20 mg PO DAILY [facility] Stop: 04/20/18 08:59 Last Admin: 02/28/18 09:26 Dose: 20 mg Lorazepam (Ativan) 0.5 mg PO Q4HR PRN; Protocol PRN Reason: Anxiety Stop: 04/19/18 15:36 Last Admin: 02/27/18 23:10 Dose: 0.5 mg Magnesium Hydroxide (Milk Of Magnesia) 30 ml PO HS PRN PRN Reason: Constipation Metoprolol Tartrate (Lopressor) 37.5 mg PO DAILY [facility] Stop: 04/20/18 08:59 Last Admin: 02/28/18 09:27 Dose: 37.5 mg Multivitamins/Vitamin C (Theragran) 1 tab PO DAILY [facility] Stop: 04/20/18 08:59 Last Admin: 02/28/18 09:24 Dose: 1 tab Polyethylene Glycol (Miralax) 17 gm PO DAILY [facility] Stop: 04/20/18 08:59 Last Admin: 02/28/18 09:24 Dose: 17 gm Prednisone (Deltasone) 50 mg PO DAILY [facility] Stop: 04/20/18 08:59 Last Admin: 02/28/18 09:25 Dose: 50 mg Quetiapine Fumarate (Seroquel) 25 mg PO BID [facility]; Protocol Stop: 04/29/18 08:59 Last Admin: 02/28/18 09:25 Dose: 25 mg Zolpidem Tartrate (Ambien) 5 mg PO HS PRN PRN Reason: Insomnia Stop: 04/19/18 15:33 Last Admin: 02/27/18 20:22 Dose: 5 mg General: alert HEENT: NC/AT, PERRLA Neck: Supple Lungs: CTAB Cardiovascular: RRR Abdomen: soft, non-tender, non-distended, positive bowel sound Neurological: alert Internal Medicine Assmt/Plan - Assessment Assessment: dementia htn hyperlipidemia oa - Plan Plan: cpm Nutritional Asmnt/Malnutr-PDOC - Dietary Evaluation Malnutrition Findings (Please click <Entered> for more info): Nutritional Asmnt/Malnutrition Start: 02/21/18 09: 03 Text: Status: Complete Freq: Protocol: Document 02/21/18 09:03 ABI (Rec: 02/21/18 09:14 AIB BARON- FNS1) Nutritional Asmnt/Malnutrition Patient General Information Nutritional Screening Moderate Risk Diagnosis Psychosis Pertinent Medical Hx/Surgical Hx Dementia w/behavioral changes, A-Fib, HTN, Hyperlipidemia, Viral Conjuctivitis, and general muscle weakness Subjective Information Patient in activity room at time if visit. No identified nutrition related issues. Current Diet Order/ Nutrition Support 2gm Sodium Patient / S.O Not Indicated Pertinent Medications maalox, lipitor, oscal w/d, colace, omega 3, MOM, theragran, miralax Pertinent Labs No current labs Nutritional Hx/Data Height 5 ft 2 in Height (Calculated Centimeters) 157.5 Current Weight (lbs) 119 lb Weight (Calculated Kilograms) 54.0 Weight (Calculated Grams) 27036.5 [place] Body Weight 110 % [place] Body Weight 108 Body Mass Index (BMI) 21.7 Recent Weight Change No Weight Status Approriate GI Symptoms GI Symptoms None Last BM none noted in EMR since admissio Difficult in: None Food Allergies No Cultural/Ethnic/Sikhism Belief none indicated Usual diet at home unknown Skin Integrity/Comment: Intact, Georgi 17 Current %PO Fair (50-74%) Estimated Nutritional Goals BEE in Kcals: Using Current wt Calories/Kcals/Kg 25-30 kcal/kg using CBW 54.1kg Kcals Calculated 8635-9772 kcal/day Protein: Using Current wt Protein g/k-1.2 gm/kg using CBW Protein Calculated 55-65 gm/day Fluid: ml 4468-1103 ml/day (1 ml/kcal) Nutritional Problem 1. Problem Problem No nutrition diagnosis at this time Intervention/Recommendation Comments 1. Continue 2 gm sodium diet at this time (hx of HTN) as oral intake appears adequate to meet nutrient needs. Expected Outcomes/Goals Expected Outcomes/Goals Oral intake >75% of meals, weight stable, nutrition related labs WNL F/U LR 02/28
--- NOTE | 2018-02-28 23:50 | Progress Notes ---
DATE: 02/28/2018 SUBJECTIVE: Staff was spoken to. The patient is interviewed. Mood is noted to be irritable. Affect is constricted. The patient has been placed on the Seroquel that was given 25 mg at night time and the patient has been continuing to have acute mood swings and the patient has been not able to calm down, mainly towards the end of the day. In view of her impulsivity, it is decided to start the patient on the Depakote 125 mg twice a day. I encouraged the patient to verbalize the concerns rather than to act out. The patient has been having the sundowning symptoms. JOB# [id number]
[2018-03-01] MEDS: Calcium Carb/Vit D 500 mg/200 U Tab PO SCH (10:10)
[2018-03-01] MEDS: Atorvastatin Calcium 10 MG TAB PO SCH (10:10)
[2018-03-01] MEDS: Fish Oil 1,000 MG SGL PO SCH (10:11)
[2018-03-01] MEDS: Multivitamin Tab PO SCH (10:12)
[2018-03-01] MEDS: POLYETHYLENE GLYCOL 3350 17 GM PACK PO SCH (10:13)
--- NOTE | 2018-03-01 10:36 | Progress Notes ---
DATE: 03/01/2018 SUBJECTIVE: Staff was spoken to. The patient is interviewed. Mood is noted to be less irritable. The patient is isolated and withdrawn. Coping skills are noted to be still poor. The patient has a tendency to scream and yell. The patient has been placed on the Seroquel and the Depakote has been added for her impulsivity. The patient is being closely monitored at this time for her aggressive behavior. The patient continues to be paranoid at this time and demented. PLAN: To continue the patient with the supportive therapy. I encouraged the patient to verbalize the concerns rather than to act out. JOB# [id number]
--- NOTE | 2018-03-01 12:58 | General Progress Note ---
Subjective - Review of Systems Events since last encounter: patient is less irritable today still withdrawn Objective - Physical Exam Vitals and I&O: Vital Signs Temp 96.8 F 03/01/18 05:47 Pulse 77 03/01/18 10:12 Resp 18 03/01/18 05:47 BP 107/77 03/01/18 10:12 Pulse Ox 100 03/01/18 05:47 Intake & Output 02/28/18 03/01/18 03/01/18 18:59 06:59 18:59 Intake Total 700 Balance 700 Intake: Oral 700 Other: # Voids 2 Active Medications: Current Medications Acetaminophen (Tylenol) 650 mg PO Q4HR PRN PRN Reason: Mild Pain / Temp above 100 Stop: 04/19/18 15:33 Al Hydrox/Mg Hydrox/Simethicone (Maalox) 30 ml PO Q4HR PRN PRN Reason: GI DISTRESS Stop: 04/19/18 15:33 Atorvastatin Calcium (Lipitor) 20 mg PO DAILY [facility]; Protocol Stop: 04/20/18 08:59 Last Admin: 03/01/18 10:10 Dose: 20 mg Calcium/Vitamin D (Oscal W/Vitamin D) 1 tab PO DAILY [facility] Stop: 04/20/18 08:59 Last Admin: 03/01/18 10:10 Dose: 1 tab Divalproex Sodium (Depakote Dr) 125 mg PO Q12HR [facility]; Protocol Stop: 04/29/18 20:59 Docusate Sodium (Colace) 100 mg PO BID [facility] Stop: 04/19/18 16:59 Last Admin: 03/01/18 10:11 Dose: 100 mg Fish Oil ([place] 3) 1,000 mg PO DAILY [facility] Stop: 04/20/18 08:59 Last Admin: 03/01/18 10:11 Dose: 1,000 mg Lisinopril (Zestril) 20 mg PO DAILY [facility] Stop: 04/20/18 08:59 Last Admin: 03/01/18 10:12 Dose: Not Given Lorazepam (Ativan) 0.5 mg PO Q4HR PRN; Protocol PRN Reason: Anxiety Stop: 04/19/18 15:36 Last Admin: 02/28/18 23:00 Dose: 0.5 mg Magnesium Hydroxide (Milk Of Magnesia) 30 ml PO HS PRN PRN Reason: Constipation Metoprolol Tartrate (Lopressor) 37.5 mg PO DAILY [facility] Stop: 04/20/18 08:59 Last Admin: 03/01/18 10:13 Dose: Not Given Multivitamins/Vitamin C (Theragran) 1 tab PO DAILY [facility] Stop: 04/20/18 08:59 Last Admin: 03/01/18 10:12 Dose: 1 tab Polyethylene Glycol (Miralax) 17 gm PO DAILY [facility] Stop: 04/20/18 08:59 Last Admin: 03/01/18 10:13 Dose: 17 gm Prednisone (Deltasone) 50 mg PO DAILY [facility] Stop: 04/20/18 08:59 Last Admin: 03/01/18 10:13 Dose: 50 mg Quetiapine Fumarate (Seroquel) 25 mg PO BID [facility]; Protocol Stop: 04/29/18 08:59 Last Admin: 03/01/18 10:13 Dose: 25 mg Zolpidem Tartrate (Ambien) 5 mg PO HS PRN PRN Reason: Insomnia Stop: 04/19/18 15:33 Last Admin: 02/28/18 21:01 Dose: 5 mg General: No acute distress HEENT: Atraumatic Neck: Supple, JVD Cardiovascular: Regular rate, Normal S1, Normal S2 Lungs: Clear to auscultation Abdomen: Bowel sounds Nutritional Asmnt/Malnutr-PDOC - Dietary Evaluation Malnutrition Findings (Please click <Entered> for more info): Nutritional Asmnt/Malnutrition Start: 02/21/18 09: 03 Text: Status: Complete Freq: Protocol: Document 02/21/18 09:03 ABI (Rec: 02/21/18 09:14 ABI BARON- [email or web address]) Nutritional Asmnt/Malnutrition Patient General Information Nutritional Screening Moderate Risk Diagnosis Psychosis Pertinent Medical Hx/Surgical Hx Dementia w/behavioral changes, A-Fib, HTN, Hyperlipidemia, Viral Conjuctivitis, and general muscle weakness Subjective Information Patient in activity room at time if visit. No identified nutrition related issues. Current Diet Order/ Nutrition Support 2gm Sodium Patient / S.O Not Indicated Pertinent Medications maalox, lipitor, oscal w/d, colace, omega 3, MOM, theragran, miralax Pertinent Labs No current labs Nutritional Hx/Data Height 1.57 m Height (Calculated Centimeters) 157.5 Current Weight (lbs) 53.977 kg Weight (Calculated Kilograms) 54.0 Weight (Calculated Grams) 04413.5 [place] Body Weight 110 % [place] Body Weight 108 Body Mass Index (BMI) 21.7 Recent Weight Change No Weight Status Approriate GI Symptoms GI Symptoms None Last BM none noted in EMR since admissio Difficult in: None Food Allergies No Cultural/Ethnic/Anglican Belief none indicated Usual diet at home unknown Skin Integrity/Comment: Intact, Georgi 17 Current %PO Fair (50-74%) Estimated Nutritional Goals BEE in Kcals: Using Current wt Calories/Kcals/Kg 25-30 kcal/kg using CBW 54.1kg Kcals Calculated 1949-3082 kcal/day Protein: Using Current wt Protein g/k-1.2 gm/kg using CBW Protein Calculated 55-65 gm/day Fluid: ml 6098-6011 ml/day (1 ml/kcal) Nutritional Problem 1. Problem Problem No nutrition diagnosis at this time Intervention/Recommendation Comments 1. Continue 2 gm sodium diet at this time (hx of HTN) as oral intake appears adequate to meet nutrient needs. Expected Outcomes/Goals Expected Outcomes/Goals Oral intake >75% of meals, weight stable, nutrition related labs WNL F/U LR 02/28
[2018-03-02] MEDS: Atorvastatin Calcium 10 MG TAB PO SCH (09:29)
[2018-03-02] MEDS: Fish Oil 1,000 MG SGL PO SCH (09:29)
[2018-03-02] MEDS: Calcium Carb/Vit D 500 mg/200 U Tab PO SCH (09:29)
[2018-03-02] MEDS: POLYETHYLENE GLYCOL 3350 17 GM PACK PO SCH (09:29)
[2018-03-02] MEDS: Multivitamin Tab PO SCH (09:29)
--- NOTE | 2018-03-02 16:40 | Internal Medicine Prog Note ---
Internal Medicine Subjective - Subjective Patient is:: awake Per staff patient has:: tolerating meds Internal Medicine Objective - Physical Exam Vitals and I&O: Vital Signs Temp 97.8 F 03/02/18 14:00 Pulse 73 03/02/18 14:00 Resp 20 03/02/18 14:00 BP 230/80 03/02/18 14:00 Pulse Ox 97 03/02/18 14:00 Intake & Output 03/01/18 03/02/18 03/02/18 18:59 06:59 18:59 Intake Total 700 180 Balance 700 180 Intake: Oral 700 180 Other: # Voids 3 1 # Bowel Movements 0 0 Active Medications: Current Medications Acetaminophen (Tylenol) 650 mg PO Q4HR PRN PRN Reason: Mild Pain / Temp above 100 Stop: 04/19/18 15:33 Al Hydrox/Mg Hydrox/Simethicone (Maalox) 30 ml PO Q4HR PRN PRN Reason: GI DISTRESS Stop: 04/19/18 15:33 Atorvastatin Calcium (Lipitor) 20 mg PO DAILY [facility]; Protocol Stop: 04/20/18 08:59 Last Admin: 03/02/18 09:29 Dose: Not Given Calcium/Vitamin D (Oscal W/Vitamin D) 1 tab PO DAILY [facility] Stop: 04/20/18 08:59 Last Admin: 03/02/18 09:29 Dose: Not Given Divalproex Sodium (Depakote Dr) 125 mg PO Q12HR YE; Protocol Stop: 04/29/18 20:59 Docusate Sodium (Colace) 100 mg PO BID [facility] Stop: 04/19/18 16:59 Last Admin: 03/02/18 09:29 Dose: Not Given Fish Oil ([place] 3) 1,000 mg PO DAILY [facility] Stop: 04/20/18 08:59 Last Admin: 03/02/18 09:29 Dose: Not Given Lisinopril (Zestril) 20 mg PO DAILY [facility] Stop: 04/20/18 08:59 Last Admin: 03/02/18 09:29 Dose: Not Given Lorazepam (Ativan) 0.5 mg PO Q4HR PRN; Protocol PRN Reason: Anxiety Stop: 04/19/18 15:36 Last Admin: 03/02/18 09:17 Dose: 0.5 mg Magnesium Hydroxide (Milk Of Magnesia) 30 ml PO HS PRN PRN Reason: Constipation Metoprolol Tartrate (Lopressor) 37.5 mg PO DAILY [facility] Stop: 04/20/18 08:59 Last Admin: 03/02/18 09:29 Dose: Not Given Multivitamins/Vitamin C (Theragran) 1 tab PO DAILY YE Stop: 04/20/18 08:59 Last Admin: 03/02/18 09:29 Dose: Not Given Polyethylene Glycol (Miralax) 17 gm PO DAILY YE Stop: 04/20/18 08:59 Last Admin: 03/02/18 09:29 Dose: Not Given Prednisone (Deltasone) 50 mg PO DAILY YE Stop: 04/20/18 08:59 Last Admin: 03/02/18 09:29 Dose: Not Given Quetiapine Fumarate (Seroquel) 25 mg PO BID [facility]; Protocol Stop: 04/29/18 08:59 Last Admin: 03/02/18 09:16 Dose: 25 mg Zolpidem Tartrate (Ambien) 5 mg PO HS PRN PRN Reason: Insomnia Stop: 04/19/18 15:33 Last Admin: 02/28/18 21:01 Dose: 5 mg General: alert HEENT: NC/AT, PERRLA Neck: Supple Lungs: CTAB Cardiovascular: RRR Abdomen: soft, non-tender, non-distended, positive bowel sound Neurological: alert Nutritional Asmnt/Malnutr-PDOC - Dietary Evaluation Malnutrition Findings (Please click <Entered> for more info): Nutritional Asmnt/Malnutrition Start: 02/21/18 09: 03 Text: Status: Complete Freq: Protocol: Document 02/21/18 09:03 ABI (Rec: 02/21/18 09:14 ABI BARON- [email or web address]) Nutritional Asmnt/Malnutrition Patient General Information Nutritional Screening Moderate Risk Diagnosis Psychosis Pertinent Medical Hx/Surgical Hx Dementia w/behavioral changes, A-Fib, HTN, Hyperlipidemia, Viral Conjuctivitis, and general muscle weakness Subjective Information Patient in activity room at time if visit. No identified nutrition related issues. Current Diet Order/ Nutrition Support 2gm Sodium Patient / S.O Not Indicated Pertinent Medications maalox, lipitor, oscal w/d, colace, omega 3, MOM, theragran, miralax Pertinent Labs No current labs Nutritional Hx/Data Height 1.57 m Height (Calculated Centimeters) 157.5 Current Weight (lbs) 53.977 kg Weight (Calculated Kilograms) 54.0 Weight (Calculated Grams) 40932.5 Worth Body Weight 110 % Worth Body Weight 108 Body Mass Index (BMI) 21.7 Recent Weight Change No Weight Status Approriate GI Symptoms GI Symptoms None Last BM none noted in EMR since admissio Difficult in: None Food Allergies No Cultural/Ethnic/Anabaptist Belief none indicated Usual diet at home unknown Skin Integrity/Comment: Georgi Argueta 17 Current %PO Fair (50-74%) Estimated Nutritional Goals BEE in Kcals: Using Current wt Calories/Kcals/Kg 25-30 kcal/kg using CBW 54.1kg Kcals Calculated 6969-7840 kcal/day Protein: Using Current wt Protein g/k-1.2 gm/kg using CBW Protein Calculated 55-65 gm/day Fluid: ml 9975-1784 ml/day (1 ml/kcal) Nutritional Problem 1. Problem Problem No nutrition diagnosis at this time Intervention/Recommendation Comments 1. Continue 2 gm sodium diet at this time (hx of HTN) as oral intake appears adequate to meet nutrient needs. Expected Outcomes/Goals Expected Outcomes/Goals Oral intake >75% of meals, weight stable, nutrition related labs WNL F/U LR 02/28
--- NOTE | 2018-03-03 00:21 | Progress Notes ---
DATE: 03/02/2018 PSYCHIATRIC PROGRESS NOTE PROGRESS ON THE UNIT: Staff was spoken to. The patient is interviewed. Mood is noted to be irritable. Affect is constricted. The patient's insight and judgment are noted to be still impaired. Impulse control is noted to be very poor. The patient has been very forgetful and then the problems are becoming more towards the end of the day. The patient has no insight into her illness. The patient is still very confused and stomping on her Sherley chair. ASSESSMENT: The patient is still impulsive. PLAN: To continue the patient with supportive therapy. Encouraged the patient to verbalize the concerns rather than to act out. JOB# [id number]
[2018-03-03] MEDS: POLYETHYLENE GLYCOL 3350 17 GM PACK PO SCH (09:48)
[2018-03-03] MEDS: Calcium Carb/Vit D 500 mg/200 U Tab PO SCH (09:48)
[2018-03-03] MEDS: Fish Oil 1,000 MG SGL PO SCH (09:48)
[2018-03-03] MEDS: Atorvastatin Calcium 10 MG TAB PO SCH (09:48)
[2018-03-03] MEDS: Multivitamin Tab PO SCH (09:48)
--- NOTE | 2018-03-03 23:15 | Progress Notes ---
DATE: 03/03/2018 SUBJECTIVE: Staff was spoken to. The patient is interviewed. Mood is noted to be anxious. Affect is appropriate. The patient is not suicidal or homicidal. Insight and judgment are noted to be improving. Impulse control seems to be fair today. No side effects to the medications are noted. ASSESSMENT: The patient is stabilizing. However, the patient has been having sundowning syndrome, mainly towards the end of the day. ASSESSMENT: The patient is stabilizing. PLAN: To discharge the patient for followup on outpatient basis. JOB# [id number]
--- NOTE | 2018-03-14 14:14 | Discharge Summary ---
DATE OF DISCHARGE: 03/03/2018 IDENTIFYING DATA: The patient is an 87-year-old woman transferred from [facility]. Information obtained by directly interviewing the patient as well as reviewing the admission papers and they are reliable. JUSTIFICATION OF HOSPITALIZATION: This patient is here on a voluntary basis because of her acute psychosis. DIAGNOSIS AT THE TIME OF ADMISSION: AXIS I: A: Psychotic disorder, not otherwise specified. B. Dementia and behavioral change, secondary trait. AXIS II: None. AXIS III: As per Dr. Mcduffie. HISTORY OF PRESENT ILLNESS: Please refer the 02/18/2018 dictation done by me. Physical examination was done by Dr. Mcduffie and is noted to be significant for patient having the hypertension, hyperlipidemia and osteoarthritis. HOSPITAL COURSE AND RESPONSE TO TREATMENT: The patient had the blood work done and has been reviewed by Dr. Mcduffie. The patient has been closely monitored on inpatient unit, provided with supportive psychotherapy. In view of the patient's mood swings, the patient has been started on the Depakote 100 mg twice a day and Seroquel was given 25 mg at bedtime and with these medications, the patient has been observed and the patient has been also placed on the Haldol on a p.r.n. basis and aggressive behavior started to resolve and the patient was finally discharged on 03/03/2018 with recommendation that the patient is going to be [facility] with the [facility] on 03/03/2018. MENTAL STATUS EXAMINATION: At the time of discharge, the patient was to be anxious. Affect is appropriate. Not suicidal or homicidal. Insight and judgment are fair. Impulse control is also noted to be fair. No side effects to the medications are noted. The patient has been able to verbalize the concerns rather than to act out at the time of the discharge. CONDITION: At the time of discharge is noted to be stable. DIAGNOSES AT THE TIME OF DISCHARGE: 1. Psychosis, not otherwise specified. 2. Dementia and behavioral change. AFTERCARE PLAN: The patient is discharged to the fdc facility for followup. PROGNOSIS: At the time of discharge noted to be fair with the treatment. JOB# [id number]
== END 2018-03-03 14:30 | DRG 885 ==
LOC: GERO 15:11
PROVIDERS: ADMIT Psychiatry & Neurology Psychiatry; ATTEND Psychiatry & Neurology Psychiatry
DX: F29 Unspecified psychosis not due to a substance or known physiological condition (principal); F03.91 Unspecified dementia, unspecified severity, with behavioral disturbance; I10 Essential (primary) hypertension; E78.5 Hyperlipidemia, unspecified; M19.90 Unspecified osteoarthritis, unspecified site
CPT/HCPCS: J2060; Z7610

== ENCOUNTER 2019-03-16 13:45 | Inpatient (IN) | payer MEDICARE, BC, OTHER ==
--- NOTE | 2019-03-16 14:11 | ED Physician Chart ---
ED Chief Complaint/HPI - Patient Information Date Seen:: 03/16/19 Time Seen:: 13:45 Chief Complaint:: Agitation History of Present Illness:: onset x 3 days of agitation and hostile behavior; no report of trauma, H/As, neck pain, C/P, cough, SOB, Abd. Pain, A/N/V/D/C, SIs, fever, chills, or urinary s/s Allergies:: Allergies Allergy/AdvReac Type Severity Reaction Status Date / Time Antihistamines - Alkylamine Allergy Unknown Verified 03/16/19 14:00 latex Allergy Unknown Verified 03/16/19 14:00 Historian:: Patient, EMS Review:: Nurse's Note Reviewed, Old Chart Reviewed, EMS run form Reviewed ED Review of Systems - Review of Systems General/Constitutional: No fever, No chills, No weight loss, No weakness, No diaphoresis, No edema, No loss of appetite Skin: No skin lesions, No rash, No bruising Head: No headache, No light-headedness Eyes: No loss of vision, No pain, No diplopia ENT: No earache, No nasal drainage, No sore throat, No tinnitus Neck: No neck pain, No swelling, No thyromegaly, No stiffness, No mass noted Cardio Vascular: No chest pain, No palpitations, No PND, No orthopnea, No edema Pulmonary: No SOB, No cough, No sputum, No wheezing GI: No nausea, No vomiting, No diarrhea, No pain, No melena, No hematochezia, No constipation, No hematemesis G/U: No dysuria, No frequency, No hematuria, No nacturia Tube Dispatcher: No vaginal discharge, No abnormal vaginal bleed, No contraction Musculoskeletal: No bone or joint pain, No back pain, No muscle pain Endocrine: No polyuria, No polydipsia Psychiatric: Prior psych history, Depression, Anxiety, No suicidal ideation, No homicidal ideation, No auditory hallucination, No visual hallucination Hematopoietic: No bruising, No lymphadenopathy Allergic/Immuno: No urticaria, No angioedema Neurological: No syncope, No focal symptoms, No weakness, No paresthesia, No headache, No seizure, No dizziness, Confusion, No vertigo ED Past Medical History - Past Medical History Obtainable: Yes Past Medical History: HTN, Dyslipidemia, Dementia Family History: HTN Social History: Non Smoker, No Alcohol, No Drug Use, , Care Facility Surgical History: None Psychiatricy History: Depression, Bipolar, Dementia Medication: Reviewed Family Medical History - Family Member Mother History Unknown: Yes ED Physical Exam - Physical Examination General/Constitutional: Awake, Well-developed, well-nourished, Alert, No distress, GCS 15, Non-toxic appearing, Ambulatory Head: Atraumatic Eyes: Lids, conjuctiva normal, PERRL, EOMI Skin: Nl inspection, No rash, No skin lesions, No ecchymosis, Well hydrated, No lymphadenopathy ENMT: External ears, nose nl, TM canals nl, Nasal exam nl, Lips, teeth, gums nl , Oropharynx nl, Tonsils nl Neck: Nontender, Full ROM w/o pain, No JVD, No nuchal rigidity, No bruit, No mass, No stridor Respiratory: Nl effort/Exclusion, Clear to Auscultation, No Wheeze/Rhonchi/Rales Cardio Vascular: RRR, No murmur, gallop, rubs, NL S1 S2, Carotid/Femoral/Distal pulses equal bilaterally GI: No tenderness/rebounding/guarding, No organomegaly, No hernia, Normal BS's, Nondistended, No mass/bruits, No McBurney tenderness : No CVA tenderness Extremities: No tenderness or effusion, Full ROM, normal strength in all extremities, No edema, Normal digits & nails Neuro/Psych: Alert/oriented, DTR's symmetric, Normal sensory exam, Normal motor strength, Judgement/insight normal, Mood normal, Normal gait, No focal deficits Other Neuro/Psych comments:: + Psychomotor Agitation; no SIs; Mood/Affect: Labile Misc: Normal back, No paraspinal tenderness ED Labs/Radiology/EKG Results - Lab Results Comments:: Reviewed - EKG Interpretations EKG Time:: 14:23 Rate & Rhythm: 60; NSR Comments:: non-specific st-t changes ED Septic Shock - . Is Septic Shock (SBP<90, OR Lactate>4 mmol\L) present?: No ED Reassessment (Disposition) - Reassessment Reassessment Condition:: Improved - Diagnosis Diagnosis:: Agitation; Medical Clearance; Dementia; Bipolar Disorder - Aftercare/Follow up Instructions Aftercare/Follow-Up Instructions:: Counseled pt regarding lab results/diagnosis & need follow up, Counseled pt & family regarding lab results/diagnosis & need follow up - Patient Disposition Discharge/Transfer:: Acute Care w/in this hosp Admitted to:: [facility] Condition at Disposition:: Stable, Improved
[2019-03-16 14:26] LABS: % BASOPHILS 0.1 % (0.0-2.0); % EOSINOPHILS 1.9 % (0.0-5.0); % LYMPHOCYTES 29.1 % (20.0-50.0); % MONOCYTES 5.3 % (2.0-10.0); % NEUTROPHILS 63.6 % (40.0-80.0); EOSINOPHILE ABSOLUTE 0.1 Th/cmm (0.1-0.4); HEMOGLOBIN 13.1 gm/dL (12-16); LYMPHOCYTE ABSOLUTE 1.5 Th/cmm (1.5-3.0); MEAN CELL VOLUME 82.9 fl (81-100); MEAN CORPUSCULAR HEMOGLOBIN 27.9 pg (27.0-31.0); MEAN CORPUSCULAR HGB CONC 33.6 pg (28.0-36.0); MONOCYTE ABSOLUTE 0.3 Th/cmm (0.3-1.0); NEUTROPHILE ABSOLUTE 3.4 Th/cmm (1.8-8.0); PLATELET COUNT 219 Th/cmm (150-400); RED CELL DISTRIBUTION WIDTH 13.1 % (11.5-20.0); WHITE BLOOD COUNT 5.3 Th/cmm (4.8-10.8)
[2019-03-16 14:44] LABS: ACETAMINOPHEN < 10.0 ug/mL (10.0-30.0); ALB/GLOB RATIO 1.6 (1.0-1.8); ALBUMIN 3.7 gm/dL (3.7-5.3); ALKALINE PHOSPHATASE 44 U/L (34-104); BILIRUBIN,TOTAL 0.3 mg/dL (0.3-1.0); BUN - UREA NITROGEN 30 mg/dL (7-25); CALCIUM SERUM 8.5 mg/dL (8.6-10.3); CARBON DIOXIDE 23.2 mEq/L (21.0-31.0); CHLORIDE 106 mEq/L (98-107); CHOLESTEROL 123 mg/dL (<200); CREATININE - SERUM 0.9 mg/dL (0.6-1.2); GLUCOSE 113 mg/dL (70-105); HDL -HIGH DENSITY LIPOPROTEIN 37 mg/dL (23-92); POTASSIUM SERUM 4.2 mEq/L (3.5-5.1); SGOT 13 U/L (13-39); SGPT/ALT 11 U/L (7-52); SODIUM SERUM 135 mEq/L (136-145); TRIGLYCERIDES 122 mg/dL (<150)
[2019-03-16 16:16] VITALS: BP 125/73
[2019-03-16] MEDS ORDERED: Maalox 30 mL Cup PO PRN ×2 (16:19→18:32)
[2019-03-16] MEDS ORDERED: Magnesium Hydroxide (MOM) 30 mL UDC PO PRN ×2 (16:19→18:32)
[2019-03-16] MEDS: Atorvastatin Calcium 10 MG TAB PO SCH (20:50)
[2019-03-16] MEDS ORDERED: Non-Formulary Item 1 EA (Melatonin [Melatonin] 3 MG) PO SCH (21:00)
--- NOTE | 2019-03-17 02:27 | Consultation ---
DATE OF CONSULTATION: 03/16/2019 HISTORY OF PRESENT ILLNESS: An 88-year-old female transferred from what looks like a nursing home facility in [place]. The patient is currently in the Emergency Room and not talking whatsoever. Awake and alert, but staring right blankly. She is able to follow very simple commands. Per ER doctor, patient with 3 days of agitation and increased hostility. The patient was in the hospital prior. SOCIAL HISTORY: Coming from a nursing home. MEDICATIONS: Noted. MENTAL STATUS EXAMINATION: Awake, alert, stares blankly, and calm at this time, but highly impulsive and unpredictable. There is a son on the face sheet, involvement unclear. Unclear SI or HI. Unclear psychotic symptoms. Not answering any questions whatsoever. Poor impulse control. Insight is very poor. PROVISIONAL DIAGNOSES: Dementia and dementia with behavioral disturbances. MEDICAL: Please see full H and P. RECOMMENDATIONS AND PLAN: The patient would likely benefit from Geropsych admission for further monitoring. [facility]# [id number]
[2019-03-17 07:06] LABS: A1C 5.8 % (4.8-5.6)
[2019-03-17] MEDS ORDERED: INSULIN LISPRO 100 UNIT/ML VIAL SUBQ SCH (09:00)
[2019-03-17] MEDS: Multivitamin Tab PO SCH (11:09)
[2019-03-17] MEDS: Calcium Carb/Vit D 500 mg/200 U Tab PO SCH (11:10)
[2019-03-17] MEDS: Fish Oil 1,000 MG SGL PO SCH (11:10)
--- NOTE | 2019-03-17 12:02 | Psychiatric Evaluation ---
DATE OF SERVICE: 03/16/[address] Stewart. Case was discussed with staff of the patient, reviewed records. IDENTIFYING INFORMATION: This is an 88-year-old female who was transferred from a correction facility in [place]. HISTORY OF PRESENT ILLNESS: The patient was seen in the Emergency Room by Dr. Rajan. She was not talking whatsoever. She was awake, alert, staring blankly. She is able to follow very simple demands. Per the Emergency Room doctor, she has 3 days of agitation and increased impulsivity. The patient was in the hospital prior to coming from correction facility. The patient was unable to give any information. She is unpredictable, impulsive. PAST PSYCHIATRIC HISTORY: She was hospitalized before. Unable to give information. SOCIAL HISTORY: Coming from the correction facility. MEDICATIONS: She is not on any medication. FAMILY HISTORY: Unobtainable. MENTAL STATUS EXAMINATION: Shows appropriately dressed, not well groomed. She was rambling, unable to participate in a meaningful conversation or make safe plan for self-care, unpredictable, impulsive. She denies suicidal ideation, denies any homicidal ideation, unclear psychotic symptoms, is not answering questions appropriately. Her insight and judgment are impaired. Long and short term memory are poor. IMPRESSION: Dementia with behavior disturbances. MEDICAL DIAGNOSES: As per medical doctor. PLAN: I would recommend the patient will continue with Namenda 10 mg twice a day and she is on multivitamin, Risperdal 0.5 mg daily. We will do group therapy, milieu therapy. ESTIMATED LENGTH OF STAY: 3-7 days. DISCHARGE CRITERIA: Decreasing psychosis, agitation. After discharge, outpatient treatment. JOB# [id number]
--- NOTE | 2019-03-17 15:55 | History and Physical ---
History of Present Illness - HPI Chief Complaint: agitation HPI: This is a 88-year old female admitted to the geropsych unit due to agitation. Vital Signs: Last Vital Signs Temp 97.1 F 03/17/19 14:00 Pulse 63 03/17/19 14:00 Resp 20 03/17/19 14:00 BP 107/54 03/17/19 14:00 Pulse Ox 97 03/17/19 14:00 Past Medical History Other History: HTN, Dyslipidemia, Dementia Family Medical History - Family Member Mother History Unknown: Yes Social History Smoke: No Alcohol: None Drugs: None Lives: [facility] - Medications Home Medications: Home Medication Medication Instructions Recorded Type Acetaminophen [Tylenol] 650 mg PO Q4HR PRN tab 03/03/18 Rx Calcium Carb/Vit D 500mg/200U 1 tab PO DAILY tab 03/03/18 Rx [Oscal w/Vitamin D] Fish Oil [[place] 3] 1,000 mg PO DAILY sgl 03/03/18 Rx Metoprolol Tartrate [Lopressor] 37.5 mg PO DAILY tab 03/03/18 Rx Al Hyd/Mg Hyd/Simethicone [Maalox] 30 ml PO PRN PRN 03/16/19 History Atorvastatin Calcium [Lipitor] 20 mg PO HS 03/16/19 History Docusate Sodium [Colace] 100 mg PO DAILY 03/16/19 History Insulin Lispro [Humalog] 2 units SUBQ BID 03/16/19 History Lisinopril [Zestril] 20 mg PO HS 03/16/19 History Lorazepam [Ativan] 1 mg PO Q8H PRN 03/16/19 History Magnesium Hydroxide [Milk of 30 ml PO PRN PRN 03/16/19 History Magnesia] Melatonin 3 mg PO HS 03/16/19 History Memantine [Namenda] 10 mg PO BID 03/16/19 History risperiDONE [RisperDAL] 0.5 mg PO DAILY 03/16/19 History - Allergies Allergies/Adverse Reactions: Allergies Allergy/AdvReac Type Severity Reaction Status Date / Time Antihistamines - Alkylamine Allergy Unknown Verified 03/16/19 14:00 divalproex sodium Allergy Verified 03/16/19 17:54 [From Depakote] furosemide [From Lasix] Allergy Verified 03/16/19 17:56 Review of Systems - Review of Systems Constitutional: Report: Weakness Eyes: Report: No Significant Respiratory: Report: No Significant Cardiovascular: Report: No Significant Neurological: Report: Weakness Physical Exam - Physical Exam HEENT: Report: Ears Nose Throat within normal limits Neck: Report: Within normal limits Cardiovascular Systems: Report: +s1/s2 noted, Regular, Rate and Rhythm Respiratory: Report: Breath Sounds are within normal limits, Clear to Auscultation of lung alcaraz Abdomen: Report: Non-tender to palpation Back: Report: Inspection of back is within normal limits. Extremities: Report: Non-tender to palpation. Skin: Report: Warm, Dry Neuro/Psych: Report: Mood affect is within normal limits - Assessment Assessment: HTN Dyslipidemia agitation Dementia - Plan Plan: continue home meds accucheck ac+hs with sliding scale fall precautions continue current plan of care
[2019-03-17] MEDS: INSULIN LISPRO SLIDING SCALE 100 UNITS/ML UNIT SUBQ SCH ×2 (17:06→21:03)
[2019-03-17] MEDS: Atorvastatin Calcium 10 MG TAB PO SCH (22:03)
[2019-03-18] MEDS: INSULIN LISPRO SLIDING SCALE 100 UNITS/ML UNIT SUBQ SCH ×4 (06:42→21:25)
[2019-03-18] MEDS: Fish Oil 1,000 MG SGL PO SCH (09:24)
[2019-03-18] MEDS: Multivitamin Tab PO SCH (09:24)
[2019-03-18] MEDS: Calcium Carb/Vit D 500 mg/200 U Tab PO SCH (09:24)
--- NOTE | 2019-03-18 10:26 | Internal Medicine Prog Note ---
Internal Medicine Subjective - Subjective Service Date: 03/18/19 Patient seen and examined:: with staff Patient is:: awake Per staff patient has:: tolerating meds Internal Medicine Objective - Results Result Diagrams: 03/16/19 14:15 03/16/19 14:15 Recent Labs: Laboratory Last Values WBC 5.3 Th/cmm (4.8-10.8) 03/16/19 14:15 RBC 4.70 Mil/cmm (3.80-5.20) 03/16/19 14:15 Hgb 13.1 gm/dL (12-16) 03/16/19 14:15 Hct 39.0 % (41.0-60) L 03/16/19 14:15 MCV 82.9 fl (81-100) 03/16/19 14:15 MCH 27.9 pg (27.0-31.0) 03/16/19 14:15 MCHC Differential 33.6 pg (28.0-36.0) 03/16/19 14:15 RDW 13.1 % (11.5-20.0) 03/16/19 14:15 Plt Count 219 Th/cmm (150-400) 03/16/19 14:15 MPV 7.8 fl 03/16/19 14:15 Neutrophils % 63.6 % (40.0-80.0) 03/16/19 14:15 Lymphocytes % 29.1 % (20.0-50.0) 03/16/19 14:15 Monocytes % 5.3 % (2.0-10.0) 03/16/19 14:15 Eosinophils % 1.9 % (0.0-5.0) 03/16/19 14:15 Basophils % 0.1 % (0.0-2.0) 03/16/19 14:15 Sodium 135 mEq/L (136-145) L 03/16/19 14:15 Potassium 4.2 mEq/L (3.5-5.1) 03/16/19 14:15 Chloride 106 mEq/L (98-107) 03/16/19 14:15 Carbon Dioxide 23.2 mEq/L (21.0-31.0) 03/16/19 14:15 Anion Gap 10.0 (7.0-16.0) 03/16/19 14:15 BUN 30 mg/dL (7-25) H 03/16/19 14:15 Creatinine 0.9 mg/dL (0.6-1.2) 03/16/19 14:15 Est GFR ( Amer) TNP 03/16/19 14:15 Est GFR (Non-Af Amer) TNP 03/16/19 14:15 BUN/Creatinine Ratio 33.3 03/16/19 14:15 Glucose 113 mg/dL (70-105) H 03/16/19 14:15 POC Glucose 137 MG/DL (70 - 105) H 03/18/19 06:33 Calcium 8.5 mg/dL (8.6-10.3) L 03/16/19 14:15 Total Bilirubin 0.3 mg/dL (0.3-1.0) 03/16/19 14:15 AST 13 U/L (13-39) 03/16/19 14:15 ALT 11 U/L (7-52) 03/16/19 14:15 Alkaline Phosphatase 44 U/L (34-104) 03/16/19 14:15 Troponin I 0.01 ng/mL (0.01-0.05) 03/16/19 14:15 Total Protein 6.0 gm/dL (6.0-8.3) 03/16/19 14:15 Albumin 3.7 gm/dL (3.7-5.3) 03/16/19 14:15 Globulin 2.3 gm/dL 03/16/19 14:15 Albumin/Globulin Ratio 1.6 (1.0-1.8) 03/16/19 14:15 Triglycerides 122 mg/dL (<150) 03/16/19 14:15 Cholesterol 123 mg/dL (<200) 03/16/19 14:15 LDL Cholesterol Direct 79 mg/dL (75-193) 03/16/19 14:15 HDL Cholesterol 37 mg/dL (23-92) 03/16/19 14:15 TSH 1.64 uIU/ml (0.34-5.60) 03/16/19 14:15 Salicylates < 25.0 mg/L (30.0-100.0) L 03/16/19 14:15 Acetaminophen < 10.0 ug/mL (10.0-30.0) L 03/16/19 14:15 Ethyl Alcohol < 10 mg/dL (0-10) 03/16/19 14:15 - Physical Exam Vitals and I&O: Vital Signs Temp 97.1 F 03/18/19 06:47 Pulse 70 03/18/19 09:23 Resp 18 03/18/19 06:47 BP 136/85 03/18/19 09:23 Pulse Ox 98 03/18/19 06:47 Intake & Output 03/17/19 03/18/19 03/18/19 18:59 06:59 18:59 Intake Total 1200 120 Balance 1200 120 Intake: Oral 1200 120 Other: # Voids 3 # Bowel Movements 1 Active Medications: Current Medications Acetaminophen (Tylenol) 650 mg PO Q4HR PRN PRN Reason: Mild Pain / Temp above 100 Stop: 05/15/19 16:18 Al Hydrox/Mg Hydrox/Simethicone (Maalox) 30 ml PO Q4HR PRN PRN Reason: GI DISTRESS Stop: 05/15/19 16:18 Atorvastatin Calcium (Lipitor) 20 mg PO HS [facility]; Protocol Stop: 05/15/19 20:59 Last Admin: 03/17/19 22:03 Dose: 20 mg Calcium/Vitamin D (Oscal W/Vitamin D) 1 tab PO DAILY YE Stop: 05/16/19 08:59 Last Admin: 03/18/19 09:24 Dose: 1 tab Docusate Sodium (Colace) 100 mg PO DAILY [facility] Stop: 05/16/19 08:59 Last Admin: 03/18/19 09:24 Dose: 100 mg Fish Oil ([place] 3) 1,000 mg PO DAILY [facility] Stop: 05/16/19 08:59 Last Admin: 03/18/19 09:24 Dose: 1,000 mg Insulin Human Lispro (Humalog Insulin Sliding Scale) 0 units SUBQ ACHS [facility]; Protocol Stop: 05/16/19 16:29 Last Admin: 03/18/19 06:42 Dose: Not Given Lisinopril (Zestril) 20 mg PO HS [facility] Stop: 05/15/19 20:59 Last Admin: 03/17/19 22:02 Dose: 20 mg Lorazepam (Ativan) 0.5 mg PO Q4HR PRN; Protocol PRN Reason: Agitation Stop: 04/15/19 16:18 Last Admin: 03/18/19 00:00 Dose: 0.5 mg Lorazepam (Ativan) 1 mg PO Q8H PRN; Protocol PRN Reason: Agitation Stop: 05/15/19 18:29 Magnesium Hydroxide (Milk Of Magnesia) 30 ml PO HS PRN PRN Reason: Constipation Memantine (Namenda) 10 mg PO BID YE Stop: 05/16/19 08:59 Last Admin: 03/18/19 09:23 Dose: 10 mg Metoprolol Tartrate (Lopressor) 37.5 mg PO DAILY YE Stop: 05/16/19 08:59 Last Admin: 03/18/19 09:23 Dose: 37.5 mg Multivitamins/Vitamin C (Theragran) 1 tab PO DAILY YE Stop: 05/16/19 08:59 Last Admin: 03/18/19 09:24 Dose: 1 tab Risperidone (Risperdal) 0.5 mg PO DAILY YE; Protocol Stop: 05/16/19 08:59 Last Admin: 03/18/19 09:24 Dose: 0.5 mg Zolpidem Tartrate (Ambien) 5 mg PO HS PRN PRN Reason: Insomnia Stop: 05/15/19 16:18 Last Admin: 03/17/19 22:03 Dose: 5 mg General: alert HEENT: NC/AT, PERRLA Neck: Supple Lungs: CTAB Cardiovascular: RRR, Normal S1, Normal S2, without murmur Abdomen: soft, non-tender, non-distended Extremities: excoriation Neurological: unable to follow command Internal Medicine Assmt/Plan - Assessment Assessment: HTN Dyslipidemia agitation Dementia - Plan Plan: continue home meds accucheck ac+hs with sliding scale fall precautions continue current plan of care
--- NOTE | 2019-03-18 15:39 | Progress Notes ---
DATE: 03/18/2019 Case was discussed with staff of the patient. Covering for Dr. Stewart. The patient continues to be confused, unable to participate in meaningful conversation, easily agitated, continues to have poor insight. No side effects with the medication, no sedation, no nausea, no extrapyramidal symptoms. Continues to be easily agitated getting angered very easily. We will continue outpatient group therapy, milieu therapy, adjust medication as needed. JOB# [id number]
[2019-03-18] MEDS: Atorvastatin Calcium 10 MG TAB PO SCH (21:22)
[2019-03-19] MEDS: INSULIN LISPRO SLIDING SCALE 100 UNITS/ML UNIT SUBQ SCH ×4 (06:41→20:42)
[2019-03-19] MEDS: Fish Oil 1,000 MG SGL PO SCH (10:05)
[2019-03-19] MEDS: Multivitamin Tab PO SCH (10:05)
[2019-03-19] MEDS: Calcium Carb/Vit D 500 mg/200 U Tab PO SCH (10:06)
--- NOTE | 2019-03-19 19:03 | Internal Medicine Prog Note ---
Internal Medicine Subjective - Subjective Service Date: 03/19/19 Patient seen and examined:: with staff, chart reviewed Patient is:: awake, verbal, agitated, confused Patient Complaints of:: other (Easily agitated and becomes very angry.) Per staff patient has:: no adverse event, no episodes of fall, tolerating meds Internal Medicine Objective - Results Result Diagrams: 03/16/19 14:15 03/16/19 14:15 Recent Labs: Laboratory Last Values WBC 5.3 Th/cmm (4.8-10.8) 03/16/19 14:15 RBC 4.70 Mil/cmm (3.80-5.20) 03/16/19 14:15 Hgb 13.1 gm/dL (12-16) 03/16/19 14:15 Hct 39.0 % (41.0-60) L 03/16/19 14:15 MCV 82.9 fl (81-100) 03/16/19 14:15 MCH 27.9 pg (27.0-31.0) 03/16/19 14:15 MCHC Differential 33.6 pg (28.0-36.0) 03/16/19 14:15 RDW 13.1 % (11.5-20.0) 03/16/19 14:15 Plt Count 219 Th/cmm (150-400) 03/16/19 14:15 MPV 7.8 fl 03/16/19 14:15 Neutrophils % 63.6 % (40.0-80.0) 03/16/19 14:15 Lymphocytes % 29.1 % (20.0-50.0) 03/16/19 14:15 Monocytes % 5.3 % (2.0-10.0) 03/16/19 14:15 Eosinophils % 1.9 % (0.0-5.0) 03/16/19 14:15 Basophils % 0.1 % (0.0-2.0) 03/16/19 14:15 Sodium 135 mEq/L (136-145) L 03/16/19 14:15 Potassium 4.2 mEq/L (3.5-5.1) 03/16/19 14:15 Chloride 106 mEq/L (98-107) 03/16/19 14:15 Carbon Dioxide 23.2 mEq/L (21.0-31.0) 03/16/19 14:15 Anion Gap 10.0 (7.0-16.0) 03/16/19 14:15 BUN 30 mg/dL (7-25) H 03/16/19 14:15 Creatinine 0.9 mg/dL (0.6-1.2) 03/16/19 14:15 Est GFR ( Amer) TNP 03/16/19 14:15 Est GFR (Non-Af Amer) TNP 03/16/19 14:15 BUN/Creatinine Ratio 33.3 03/16/19 14:15 Glucose 113 mg/dL (70-105) H 03/16/19 14:15 POC Glucose 137 MG/DL (70 - 105) H 03/18/19 06:33 Calcium 8.5 mg/dL (8.6-10.3) L 03/16/19 14:15 Total Bilirubin 0.3 mg/dL (0.3-1.0) 03/16/19 14:15 AST 13 U/L (13-39) 03/16/19 14:15 ALT 11 U/L (7-52) 03/16/19 14:15 Alkaline Phosphatase 44 U/L (34-104) 03/16/19 14:15 Troponin I 0.01 ng/mL (0.01-0.05) 03/16/19 14:15 Total Protein 6.0 gm/dL (6.0-8.3) 03/16/19 14:15 Albumin 3.7 gm/dL (3.7-5.3) 03/16/19 14:15 Globulin 2.3 gm/dL 03/16/19 14:15 Albumin/Globulin Ratio 1.6 (1.0-1.8) 03/16/19 14:15 Triglycerides 122 mg/dL (<150) 03/16/19 14:15 Cholesterol 123 mg/dL (<200) 03/16/19 14:15 LDL Cholesterol Direct 79 mg/dL (75-193) 03/16/19 14:15 HDL Cholesterol 37 mg/dL (23-92) 03/16/19 14:15 TSH 1.64 uIU/ml (0.34-5.60) 03/16/19 14:15 Salicylates < 25.0 mg/L (30.0-100.0) L 03/16/19 14:15 Acetaminophen < 10.0 ug/mL (10.0-30.0) L 03/16/19 14:15 Ethyl Alcohol < 10 mg/dL (0-10) 03/16/19 14:15 RPR NONREACTIVE (NONREACTIVE) 03/16/19 14:15 - Physical Exam Vitals and I&O: Vital Signs Temp 97.6 F 03/19/19 14:00 Pulse 63 03/19/19 14:00 Resp 18 03/19/19 14:00 BP 116/49 03/19/19 14:00 Pulse Ox 98 03/19/19 14:00 Intake & Output 03/18/19 03/19/19 03/19/19 18:59 06:59 18:59 Intake Total 307 672 4391 Balance 883 750 3527 Intake: Oral 902 828 9010 Other: # Voids 4 3 3 # Bowel Movements 1 0 Active Medications: Current Medications Acetaminophen (Tylenol) 650 mg PO Q4HR PRN PRN Reason: Mild Pain / Temp above 100 Stop: 05/15/19 16:18 Al Hydrox/Mg Hydrox/Simethicone (Maalox) 30 ml PO Q4HR PRN PRN Reason: GI DISTRESS Stop: 05/15/19 16:18 Atorvastatin Calcium (Lipitor) 20 mg PO HS [facility]; Protocol Stop: 05/15/19 20:59 Last Admin: 03/18/19 21:22 Dose: 20 mg Calcium/Vitamin D (Oscal W/Vitamin D) 1 tab PO DAILY YE Stop: 05/16/19 08:59 Last Admin: 03/19/19 10:06 Dose: 1 tab Docusate Sodium (Colace) 100 mg PO DAILY [facility] Stop: 05/16/19 08:59 Last Admin: 03/19/19 10:05 Dose: 100 mg Fish Oil ([place] 3) 1,000 mg PO DAILY [facility] Stop: 05/16/19 08:59 Last Admin: 03/19/19 10:05 Dose: 1,000 mg Insulin Human Lispro (Humalog Insulin Sliding Scale) 0 units SUBQ ACHS [facility]; Protocol Stop: 05/16/19 16:29 Last Admin: 03/19/19 16:46 Dose: Not Given Lisinopril (Zestril) 20 mg PO HS [facility] Stop: 05/15/19 20:59 Last Admin: 03/18/19 21:22 Dose: 20 mg Lorazepam (Ativan) 0.5 mg PO Q4HR PRN; Protocol PRN Reason: Agitation Stop: 04/15/19 16:18 Last Admin: 03/18/19 00:00 Dose: 0.5 mg Lorazepam (Ativan) 1 mg PO Q8H PRN; Protocol PRN Reason: Agitation Stop: 05/15/19 18:29 Magnesium Hydroxide (Milk Of Magnesia) 30 ml PO HS PRN PRN Reason: Constipation Memantine (Namenda) 10 mg PO BID [facility] Stop: 05/16/19 08:59 Last Admin: 03/19/19 16:38 Dose: 10 mg Metoprolol Tartrate (Lopressor) 37.5 mg PO DAILY [facility] Stop: 05/16/19 08:59 Last Admin: 03/19/19 10:04 Dose: 37.5 mg Multivitamins/Vitamin C (Theragran) 1 tab PO DAILY [facility] Stop: 05/16/19 08:59 Last Admin: 03/19/19 10:05 Dose: 1 tab Risperidone (Risperdal) 0.75 mg PO DAILY [facility]; Protocol Stop: 05/19/19 08:59 Zolpidem Tartrate (Ambien) 5 mg PO HS PRN PRN Reason: Insomnia Stop: 05/15/19 16:18 Last Admin: 03/18/19 21:25 Dose: 5 mg Physical Exam: Patient is easily agitated, demented and irritable. General: alert HEENT: NC/AT, PERRLA Neck: Supple Lungs: CTAB Cardiovascular: RRR, Normal S1, Normal S2, without murmur Abdomen: soft, non-tender, non-distended Extremities: excoriation Neurological: unable to follow command Internal Medicine Assmt/Plan - Assessment Assessment: Htn. Dyslipidemia. Agitated. Dementia. Diabetes. - Plan Plan: Continuation of care. Monitor Labs. Monitor vitals, Continue BP meds as directed. Accu-check daily, Insulin coverage sliding scale. Monitor Diet/Nutritional support. Supportive care. Continue collaborating with consulting specialists, case management and nursing team. Will Monitor patient and continue present care management. Nutritional Asmnt/Malnutr-PDOC - Dietary Evaluation Malnutrition Findings (Please click <Entered> for more info): see orders.
[2019-03-19] MEDS: Atorvastatin Calcium 10 MG TAB PO SCH (20:41)
--- NOTE | 2019-03-19 22:58 | Progress Notes ---
DATE: 03/19/2019 Case was discussed with staff of the patient, reviewed records. The patient continues to be confused, easily agitated, continues to have poor insight. Unable to make safe plan for self-care. She is compliant with the medication with no side effects, no sedation, no nausea, no extrapyramidal symptoms. The patient is on Risperdal 0.5 mg daily. I will be increasing the dose to 0.75 mg a day to decrease her episodes of agitation and irritability. No side effects to the medication, no sedation, no nausea, no extrapyramidal symptoms. Her lab work showed low hematocrit, the rest of CBC within normal range. Chemistry panel with low sodium, high BUN and high blood sugar, low calcium. The rest within normal range. Her RPR is nonreactive. We will continue to work with the patient in group therapy, milieu therapy, and adjust the medication as needed. JOB# [id number]
[2019-03-20] MEDS: INSULIN LISPRO SLIDING SCALE 100 UNITS/ML UNIT SUBQ SCH ×4 (06:35→20:53)
--- NOTE | 2019-03-20 07:30 | Progress Notes ---
DATE: 03/20/2019 SUBJECTIVE: The patient in the hospital, coming from a [facility] facility, apparently very agitated, very impulsive. On [id number], the patient refusing to talk to me, irritable. Apparently slept fairly well throughout the night, poor insight, very confused, disoriented per Dr. Hernandez's notes. Her medications were reviewed. Per nursing staff, ongoing confusion, easily agitated. Medications were noted. PLAN: We will continue to monitor. Continue dosing of Risperdal. JOB# [id number]
--- NOTE | 2019-03-20 08:04 | Progress Notes ---
DATE: 03/20/2019 SUBJECTIVE: The patient was seen at the dining area. The patient appears to be frustrated, easily gets agitated, episodes of behavioral outbursts. Otherwise, the patient is in no acute distress. OBJECTIVE: VITAL SIGNS: Temperature 97.8, heart rate 71, blood pressure 112/64, respirations 19, 100% on room air. HEENT: Head is atraumatic and normocephalic. Eyes: Bilateral conjunctivae are clear. Bilateral pupils equal, round, reactive. NECK: Supple. No JVD. CARDIOVASCULAR: S1 and S2, without murmur. PULMONARY: Clear to auscultation. GASTROINTESTINAL: Soft and nontender without guarding. Positive bowel sounds. MUSCULOSKELETAL: No clubbing. No cyanosis noted. ASSESSMENT: 1. Dementia. 2. Hypertension. 3. Hyperlipidemia. 4. Osteoarthritis. PLAN: We will keep the patient inpatient to psychiatric unit and follow up with a psychiatrist to monitor the patient's condition and behavior. We will put the patient on fall precautions. Treatment plans were discussed with the patient's nurse. Treatment plans were discussed with Dr. Mcduffie. JOB# [id number]
[2019-03-20] MEDS: Calcium Carb/Vit D 500 mg/200 U Tab PO SCH (08:23)
[2019-03-20] MEDS: Fish Oil 1,000 MG SGL PO SCH (08:24)
[2019-03-20] MEDS: Multivitamin Tab PO SCH (08:24)
[2019-03-20] MEDS: Atorvastatin Calcium 10 MG TAB PO SCH (20:52)
[2019-03-21] MEDS: INSULIN LISPRO SLIDING SCALE 100 UNITS/ML UNIT SUBQ SCH ×4 (06:35→21:32)
--- NOTE | 2019-03-21 08:50 | Progress Notes ---
DATE: 03/21/2019 SUBJECTIVE: The patient in bed, sleeping, arousable, but not wanting to talk to me, just closes her eyes, goes back to sleep. Difficult to interview. Per staff AO x 2. Forgetful confused, easily agitated, still acute, gets upset very fast. No aggression; however, mostly withdrawn, keeps to self, depressed, flat on exam. Medications were noted. ASSESSMENT: The patient remains symptomatic, ongoing concerns about her ability to function at a lower level. PLAN: We will continue dosing of medications, Risperdal. JOB# [id number]
[2019-03-21] MEDS: Calcium Carb/Vit D 500 mg/200 U Tab PO SCH (08:52)
[2019-03-21] MEDS: Multivitamin Tab PO SCH (08:53)
[2019-03-21] MEDS: Fish Oil 1,000 MG SGL PO SCH (08:53)
--- NOTE | 2019-03-21 09:27 | Internal Medicine Prog Note ---
Internal Medicine Subjective - Subjective Patient is:: asleep, verbal, arousable, in bed, agitated, confused Patient Complaints of:: other (Easily agitated and becomes very angry.) Per staff patient has:: no adverse event, no episodes of fall, agitated, noncompliant, refusing care (refusing meds) Internal Medicine Objective - Results Result Diagrams: 03/16/19 14:15 03/16/19 14:15 Recent Labs: Laboratory Last Values WBC 5.3 Th/cmm (4.8-10.8) 03/16/19 14:15 RBC 4.70 Mil/cmm (3.80-5.20) 03/16/19 14:15 Hgb 13.1 gm/dL (12-16) 03/16/19 14:15 Hct 39.0 % (41.0-60) L 03/16/19 14:15 MCV 82.9 fl (81-100) 03/16/19 14:15 MCH 27.9 pg (27.0-31.0) 03/16/19 14:15 MCHC Differential 33.6 pg (28.0-36.0) 03/16/19 14:15 RDW 13.1 % (11.5-20.0) 03/16/19 14:15 Plt Count 219 Th/cmm (150-400) 03/16/19 14:15 MPV 7.8 fl 03/16/19 14:15 Neutrophils % 63.6 % (40.0-80.0) 03/16/19 14:15 Lymphocytes % 29.1 % (20.0-50.0) 03/16/19 14:15 Monocytes % 5.3 % (2.0-10.0) 03/16/19 14:15 Eosinophils % 1.9 % (0.0-5.0) 03/16/19 14:15 Basophils % 0.1 % (0.0-2.0) 03/16/19 14:15 Sodium 135 mEq/L (136-145) L 03/16/19 14:15 Potassium 4.2 mEq/L (3.5-5.1) 03/16/19 14:15 Chloride 106 mEq/L (98-107) 03/16/19 14:15 Carbon Dioxide 23.2 mEq/L (21.0-31.0) 03/16/19 14:15 Anion Gap 10.0 (7.0-16.0) 03/16/19 14:15 BUN 30 mg/dL (7-25) H 03/16/19 14:15 Creatinine 0.9 mg/dL (0.6-1.2) 03/16/19 14:15 Est GFR ( Amer) TNP 03/16/19 14:15 Est GFR (Non-Af Amer) TNP 03/16/19 14:15 BUN/Creatinine Ratio 33.3 03/16/19 14:15 Glucose 113 mg/dL (70-105) H 03/16/19 14:15 POC Glucose 137 MG/DL (70 - 105) H 03/18/19 06:33 Calcium 8.5 mg/dL (8.6-10.3) L 03/16/19 14:15 Total Bilirubin 0.3 mg/dL (0.3-1.0) 03/16/19 14:15 AST 13 U/L (13-39) 03/16/19 14:15 ALT 11 U/L (7-52) 03/16/19 14:15 Alkaline Phosphatase 44 U/L (34-104) 03/16/19 14:15 Troponin I 0.01 ng/mL (0.01-0.05) 03/16/19 14:15 Total Protein 6.0 gm/dL (6.0-8.3) 03/16/19 14:15 Albumin 3.7 gm/dL (3.7-5.3) 03/16/19 14:15 Globulin 2.3 gm/dL 03/16/19 14:15 Albumin/Globulin Ratio 1.6 (1.0-1.8) 03/16/19 14:15 Triglycerides 122 mg/dL (<150) 03/16/19 14:15 Cholesterol 123 mg/dL (<200) 03/16/19 14:15 LDL Cholesterol Direct 79 mg/dL (75-193) 03/16/19 14:15 HDL Cholesterol 37 mg/dL (23-92) 03/16/19 14:15 TSH 1.64 uIU/ml (0.34-5.60) 03/16/19 14:15 Salicylates < 25.0 mg/L (30.0-100.0) L 03/16/19 14:15 Acetaminophen < 10.0 ug/mL (10.0-30.0) L 03/16/19 14:15 Ethyl Alcohol < 10 mg/dL (0-10) 03/16/19 14:15 RPR NONREACTIVE (NONREACTIVE) 03/16/19 14:15 - Physical Exam Vitals and I&O: Vital Signs Temp 98.5 F 03/21/19 06:20 Pulse 71 03/21/19 08:49 Resp 18 03/21/19 06:20 BP 95/47 03/21/19 08:49 Pulse Ox 98 03/21/19 06:20 Intake & Output 03/20/19 03/21/19 03/21/19 18:59 06:59 18:59 Intake Total 1100 240 Output Total 1 Balance 1100 239 Intake: Oral 1100 240 Output: Urine/Stool Mix 1 Other: # Voids 3 1 # Bowel Movements 0 1 Active Medications: Current Medications Acetaminophen (Tylenol) 650 mg PO Q4HR PRN PRN Reason: Mild Pain / Temp above 100 Stop: 05/15/19 16:18 Al Hydrox/Mg Hydrox/Simethicone (Maalox) 30 ml PO Q4HR PRN PRN Reason: GI DISTRESS Stop: 05/15/19 16:18 Atorvastatin Calcium (Lipitor) 20 mg PO HS [facility]; Protocol Stop: 05/15/19 20:59 Last Admin: 03/20/19 20:52 Dose: 20 mg Calcium/Vitamin D (Oscal W/Vitamin D) 1 tab PO DAILY [facility] Stop: 05/16/19 08:59 Last Admin: 03/21/19 08:52 Dose: Not Given Docusate Sodium (Colace) 100 mg PO DAILY [facility] Stop: 05/16/19 08:59 Last Admin: 03/21/19 08:52 Dose: Not Given Fish Oil ([place] 3) 1,000 mg PO DAILY [facility] Stop: 05/16/19 08:59 Last Admin: 03/21/19 08:53 Dose: Not Given Insulin Human Lispro (Humalog Insulin Sliding Scale) 0 units SUBQ ACHS [facility]; Protocol Stop: 05/16/19 16:29 Last Admin: 03/21/19 06:35 Dose: Not Given Lisinopril (Zestril) 20 mg PO HS [facility] Stop: 05/15/19 20:59 Last Admin: 03/20/19 20:52 Dose: 20 mg Lorazepam (Ativan) 0.5 mg PO Q4HR PRN; Protocol PRN Reason: Agitation Stop: 04/15/19 16:18 Last Admin: 03/18/19 00:00 Dose: 0.5 mg Lorazepam (Ativan) 1 mg PO Q8H PRN; Protocol PRN Reason: Agitation Stop: 05/15/19 18:29 Magnesium Hydroxide (Milk Of Magnesia) 30 ml PO HS PRN PRN Reason: Constipation Memantine (Namenda) 10 mg PO BID [facility] Stop: 05/16/19 08:59 Last Admin: 03/21/19 08:53 Dose: Not Given Metoprolol Tartrate (Lopressor) 37.5 mg PO DAILY [facility] Stop: 05/16/19 08:59 Last Admin: 03/21/19 08:49 Dose: Not Given Multivitamins/Vitamin C (Theragran) 1 tab PO DAILY [facility] Stop: 05/16/19 08:59 Last Admin: 03/21/19 08:53 Dose: Not Given Risperidone (Risperdal) 0.75 mg PO DAILY [facility]; Protocol Stop: 05/19/19 08:59 Last Admin: 03/21/19 08:53 Dose: Not Given Zolpidem Tartrate (Ambien) 5 mg PO HS PRN PRN Reason: Insomnia Stop: 05/15/19 16:18 Last Admin: 03/20/19 20:53 Dose: 5 mg General: demented, NAD HEENT: NC/AT, PERRLA Neck: Supple, No JVD Lungs: CTAB Cardiovascular: RRR, Normal S1, Normal S2 Abdomen: soft, non-tender, non-distended Neurological: unable to follow command Internal Medicine Assmt/Plan - Assessment Assessment: Dementia Agitation HTN DM Hyperlipidemia OA - Plan Plan: Continue current treatment plan. Monitor Labs.Continue current medications Continue to monitor VS Monitor Diet/Nutritional support. Psych management per Psychiatry. Pain Management. PT/OT prn Safety precaution, Fall precaution, frequent nursing round. Supportive care. Continue collaborating with consulting specialists, case management and nursing team. Nutritional Asmnt/Malnutr-PDOC - Dietary Evaluation Malnutrition Findings (Please click <Entered> for more info): Nutritional Asmnt/Malnutrition Start: 03/20/19 09: 27 Text: Status: Complete Freq: Protocol: Document 03/20/19 09:27 ABI (Rec: 03/20/19 10:09 DENYSJANET BARON- [email or web address]) Nutritional Asmnt/Malnutrition Patient General Information Nutritional Screening Moderate Risk Diagnosis Psychosis Pertinent Medical Hx/Surgical Hx Hyperlipidemia, gout, afib, psychosis Subjective Information Patient was admitted from SNF. In bed at time of visit, lunch being served at this time. Per RN note, patient is withdrawn, flat affect, depressed. Nutrition education not appropriate at this time. Tolerating current diet witha adequate intake. Current Diet Order/ Nutrition Support Cardiac Patient / S.O Not Indicated Pertinent Medications maalox, lipitor, oscal W/d, colace, omega 3, humalog, MOM, Theragran Pertinent Labs (03/16) Na 135 Nutritional Hx/Data Height 5 ft 2 in Height (Calculated Centimeters) 157.5 Current Weight (lbs) 119 lb Weight (Calculated Kilograms) 54.0 Weight (Calculated Grams) 00766.5 Mclean Body Weight 110 % Mclean Body Weight 108 Body Mass Index (BMI) 21.7 Recent Weight Change No Weight Status Approriate GI Symptoms GI Symptoms None Last BM 03/18 x 1 Difficult in: None Food Allergies No Cultural/Ethnic/Oriental Orthodox Belief none indicated Usual diet at home unknown Skin Integrity/Comment: Georgi Argueta 18 Current %PO Good (75-100%) Estimated Nutritional Goals BEE in Kcals: Using Current wt Calories/Kcals/Kg 25-30 kcal/kg using 54kg CBW Kcals Calculated ~5411-7877 kcal/day Protein: Using Current wt Protein g/k-1.2 gm/kg Protein Calculated ~55-65 gm/day Fluid: ml ~6767-8999 kcal/day Nutritional Problem No current Nutrition Prob Problem No nutrition diagnosis at this time Intervention/Recommendation Comments 1. Continue cardiac diet as tolerated by patient. Expected Outcomes/Goals Expected Outcomes/Goals oral intake >75% of meals, weight stable, nutrition related labs WNL F/U LR 03/27
[2019-03-21] MEDS: Atorvastatin Calcium 10 MG TAB PO SCH (21:32)
[2019-03-22] MEDS: INSULIN LISPRO SLIDING SCALE 100 UNITS/ML UNIT SUBQ SCH ×4 (06:46→20:44)
[2019-03-22] MEDS: Calcium Carb/Vit D 500 mg/200 U Tab PO SCH (08:57)
[2019-03-22] MEDS: Multivitamin Tab PO SCH (08:57)
[2019-03-22] MEDS: risperiDONE 1 mg/mL 30 mL Bottle PO SCH ×2 (08:57→17:29)
[2019-03-22] MEDS: Fish Oil 1,000 MG SGL PO SCH (08:57)
--- NOTE | 2019-03-22 16:49 | Internal Medicine Prog Note ---
Internal Medicine Subjective - Subjective Service Date: 03/22/19 Patient seen and examined:: with staff, chart reviewed Patient is:: asleep, verbal, arousable, in bed, agitated, confused Patient Complaints of:: other (Easily agitated and becomes very angry.) Per staff patient has:: no adverse event, no episodes of fall, agitated, noncompliant, refusing care (refusing meds) Internal Medicine Objective - Results Result Diagrams: 03/16/19 14:15 03/16/19 14:15 Recent Labs: Laboratory Last Values WBC 5.3 Th/cmm (4.8-10.8) 03/16/19 14:15 RBC 4.70 Mil/cmm (3.80-5.20) 03/16/19 14:15 Hgb 13.1 gm/dL (12-16) 03/16/19 14:15 Hct 39.0 % (41.0-60) L 03/16/19 14:15 MCV 82.9 fl (81-100) 03/16/19 14:15 MCH 27.9 pg (27.0-31.0) 03/16/19 14:15 MCHC Differential 33.6 pg (28.0-36.0) 03/16/19 14:15 RDW 13.1 % (11.5-20.0) 03/16/19 14:15 Plt Count 219 Th/cmm (150-400) 03/16/19 14:15 MPV 7.8 fl 03/16/19 14:15 Neutrophils % 63.6 % (40.0-80.0) 03/16/19 14:15 Lymphocytes % 29.1 % (20.0-50.0) 03/16/19 14:15 Monocytes % 5.3 % (2.0-10.0) 03/16/19 14:15 Eosinophils % 1.9 % (0.0-5.0) 03/16/19 14:15 Basophils % 0.1 % (0.0-2.0) 03/16/19 14:15 Sodium 135 mEq/L (136-145) L 03/16/19 14:15 Potassium 4.2 mEq/L (3.5-5.1) 03/16/19 14:15 Chloride 106 mEq/L (98-107) 03/16/19 14:15 Carbon Dioxide 23.2 mEq/L (21.0-31.0) 03/16/19 14:15 Anion Gap 10.0 (7.0-16.0) 03/16/19 14:15 BUN 30 mg/dL (7-25) H 03/16/19 14:15 Creatinine 0.9 mg/dL (0.6-1.2) 03/16/19 14:15 Est GFR ( Amer) TNP 03/16/19 14:15 Est GFR (Non-Af Amer) TNP 03/16/19 14:15 BUN/Creatinine Ratio 33.3 03/16/19 14:15 Glucose 113 mg/dL (70-105) H 03/16/19 14:15 POC Glucose 137 MG/DL (70 - 105) H 03/18/19 06:33 Calcium 8.5 mg/dL (8.6-10.3) L 03/16/19 14:15 Total Bilirubin 0.3 mg/dL (0.3-1.0) 03/16/19 14:15 AST 13 U/L (13-39) 03/16/19 14:15 ALT 11 U/L (7-52) 03/16/19 14:15 Alkaline Phosphatase 44 U/L (34-104) 03/16/19 14:15 Troponin I 0.01 ng/mL (0.01-0.05) 03/16/19 14:15 Total Protein 6.0 gm/dL (6.0-8.3) 03/16/19 14:15 Albumin 3.7 gm/dL (3.7-5.3) 03/16/19 14:15 Globulin 2.3 gm/dL 03/16/19 14:15 Albumin/Globulin Ratio 1.6 (1.0-1.8) 03/16/19 14:15 Triglycerides 122 mg/dL (<150) 03/16/19 14:15 Cholesterol 123 mg/dL (<200) 03/16/19 14:15 LDL Cholesterol Direct 79 mg/dL (75-193) 03/16/19 14:15 HDL Cholesterol 37 mg/dL (23-92) 03/16/19 14:15 TSH 1.64 uIU/ml (0.34-5.60) 03/16/19 14:15 Salicylates < 25.0 mg/L (30.0-100.0) L 03/16/19 14:15 Acetaminophen < 10.0 ug/mL (10.0-30.0) L 03/16/19 14:15 Ethyl Alcohol < 10 mg/dL (0-10) 03/16/19 14:15 RPR NONREACTIVE (NONREACTIVE) 03/16/19 14:15 - Physical Exam Vitals and I&O: Vital Signs Temp 97.6 F 03/22/19 15:05 Pulse 60 03/22/19 15:05 Resp 18 03/22/19 15:05 BP 99/52 03/22/19 15:05 Pulse Ox 98 03/22/19 15:05 Intake & Output 03/21/19 03/22/19 03/22/19 18:59 06:59 18:59 Intake Total 900 180 Balance 900 180 Intake: Oral 900 180 Other: # Voids 3 1 # Bowel Movements 0 0 Stool Characteristics Formed Active Medications: Current Medications Acetaminophen (Tylenol) 650 mg PO Q4HR PRN PRN Reason: Mild Pain / Temp above 100 Stop: 05/15/19 16:18 Last Admin: 03/22/19 03:51 Dose: 650 mg Al Hydrox/Mg Hydrox/Simethicone (Maalox) 30 ml PO Q4HR PRN PRN Reason: GI DISTRESS Stop: 05/15/19 16:18 Atorvastatin Calcium (Lipitor) 20 mg PO HS YE; Protocol Stop: 05/15/19 20:59 Last Admin: 03/21/19 21:32 Dose: 20 mg Calcium/Vitamin D (Oscal W/Vitamin D) 1 tab PO DAILY YE Stop: 05/16/19 08:59 Last Admin: 03/22/19 08:57 Dose: 1 tab Docusate Sodium (Colace) 100 mg PO DAILY [facility] Stop: 05/16/19 08:59 Last Admin: 03/22/19 08:57 Dose: 100 mg Fish Oil ([place] 3) 1,000 mg PO DAILY [facility] Stop: 05/16/19 08:59 Last Admin: 03/22/19 08:57 Dose: 1,000 mg Insulin Human Lispro (Humalog Insulin Sliding Scale) 0 units SUBQ ACHS [facility]; Protocol Stop: 05/16/19 16:29 Last Admin: 03/22/19 12:24 Dose: Not Given Lisinopril (Zestril) 20 mg PO HS YE Stop: 05/15/19 20:59 Last Admin: 03/21/19 21:33 Dose: 20 mg Lorazepam (Ativan) 0.5 mg PO Q4HR PRN; Protocol PRN Reason: Agitation Stop: 04/15/19 16:18 Last Admin: 03/21/19 23:06 Dose: 0.5 mg Lorazepam (Ativan) 1 mg PO Q8H PRN; Protocol PRN Reason: Agitation Stop: 05/15/19 18:29 Magnesium Hydroxide (Milk Of Magnesia) 30 ml PO HS PRN PRN Reason: Constipation Memantine (Namenda) 10 mg PO BID YE Stop: 05/16/19 08:59 Last Admin: 03/22/19 08:57 Dose: 10 mg Metoprolol Tartrate (Lopressor) 37.5 mg PO DAILY [facility] Stop: 05/16/19 08:59 Last Admin: 03/22/19 08:57 Dose: 37.5 mg Multivitamins/Vitamin C (Theragran) 1 tab PO DAILY [facility] Stop: 05/16/19 08:59 Last Admin: 03/22/19 08:57 Dose: 1 tab Risperidone (Risperdal) 1 mg PO BID YE; Protocol Stop: 05/21/19 08:59 Last Admin: 03/22/19 08:57 Dose: 1 mg Zolpidem Tartrate (Ambien) 5 mg PO HS PRN PRN Reason: Insomnia Stop: 05/15/19 16:18 Last Admin: 03/21/19 21:34 Dose: 5 mg Physical Exam: Patient has mood swings, gets upset and irritable, very withdrawn. General: demented, NAD HEENT: NC/AT, PERRLA Neck: Supple, No JVD Lungs: CTAB Cardiovascular: RRR, Normal S1, Normal S2 Abdomen: soft, non-tender, non-distended Extremities: excoriation Neurological: unable to follow command Internal Medicine Assmt/Plan - Assessment Assessment: Htn. Dyslipidemia. Agitated. Dementia. Diabetes. - Plan Plan: Continuation of care. Monitor Labs. Monitor vitals, Continue BP meds as directed. Accu-check daily, Insulin coverage sliding scale. Monitor Diet/Nutritional support. Supportive care. Continue collaborating with consulting specialists, case management and nursing team. Will Monitor patient and continue present care management. Nutritional Asmnt/Malnutr-PDOC - Dietary Evaluation Malnutrition Findings (Please click <Entered> for more info): Nutritional Asmnt/Malnutrition Start: 03/20/19 09: 27 Text: Status: Complete Freq: Protocol: Document 03/20/19 09:27 DENYSJANET (Rec: 03/20/19 10:09 ABI TOD- [email or web address]) Nutritional Asmnt/Malnutrition Patient General Information Nutritional Screening Moderate Risk Diagnosis Psychosis Pertinent Medical Hx/Surgical Hx Hyperlipidemia, gout, afib, psychosis Subjective Information Patient was admitted from SNF. In bed at time of visit, lunch being served at this time. Per RN note, patient is withdrawn, flat affect, depressed. Nutrition education not appropriate at this time. Tolerating current diet witha adequate intake. Current Diet Order/ Nutrition Support Cardiac Patient / S.O Not Indicated Pertinent Medications maalox, lipitor, oscal W/d, colace, omega 3, humalog, MOM, Theragran Pertinent Labs (03/16) Na 135 Nutritional Hx/Data Height 1.57 m Height (Calculated Centimeters) 157.5 Current Weight (lbs) 53.977 kg Weight (Calculated Kilograms) 54.0 Weight (Calculated Grams) 05160.5 [place] Body Weight 110 % [place] Body Weight 108 Body Mass Index (BMI) 21.7 Recent Weight Change No Weight Status Approriate GI Symptoms GI Symptoms None Last BM 03/18 x 1 Difficult in: None Food Allergies No Cultural/Ethnic/Mosque Belief none indicated Usual diet at home unknown Skin Integrity/Comment: [place], Georgi 18 Current %PO Good (75-100%) Estimated Nutritional Goals BEE in Kcals: Using Current wt Calories/Kcals/Kg 25-30 kcal/kg using 54kg CBW Kcals Calculated ~7318-5296 kcal/day Protein: Using Current wt Protein g/k-1.2 gm/kg Protein Calculated ~55-65 gm/day Fluid: ml ~2026-2860 kcal/day Nutritional Problem No current Nutrition Prob Problem No nutrition diagnosis at this time Intervention/Recommendation Comments 1. Continue cardiac diet as tolerated by patient. Expected Outcomes/Goals Expected Outcomes/Goals oral intake >75% of meals, weight stable, nutrition related labs WNL F/U LR 03/27
[2019-03-22] MEDS: Atorvastatin Calcium 10 MG TAB PO SCH (20:52)
--- NOTE | 2019-03-22 23:30 | Progress Notes ---
DATE: 03/22/2019 DATE: 03/22/2019 SUBJECTIVE: Chart reviewed and the patient interviewed. Also discussed the patient's condition with the staff and reviewed records and labs. The patient is still confused and is still forgetful. She also is still easily irritable and easily agitated. The patient also is still loud with episodes of yelling and screaming. She also is still threatening other patients on the unit. She refused to take her medications for no apparent reason. Staff observed the patient hitting other patients, then told "will break your leg." The patient also refused to take her Risperdal. ASSESSMENT: The patient is still agitated and she can be dangerous to others. TREATMENT PLAN: We will change Risperdal to Risperdal liquid and we will increase the dose to 1 mg twice a day. Also, continue to work on her poor impulse control and her bad behavior. JOB# [id number]
[2019-03-23] MEDS: INSULIN LISPRO SLIDING SCALE 100 UNITS/ML UNIT SUBQ SCH ×4 (06:40→21:05)
[2019-03-23] MEDS: Multivitamin Tab PO SCH (08:18)
[2019-03-23] MEDS: Fish Oil 1,000 MG SGL PO SCH (08:20)
[2019-03-23] MEDS: Calcium Carb/Vit D 500 mg/200 U Tab PO SCH (08:20)
[2019-03-23] MEDS: risperiDONE 1 mg/mL 30 mL Bottle PO SCH ×2 (08:20→16:59)
--- NOTE | 2019-03-23 16:38 | Internal Medicine Prog Note ---
Internal Medicine Subjective - Subjective Service Date: 03/23/19 Patient is:: asleep, verbal, arousable, in bed, agitated, confused Patient Complaints of:: other (Easily agitated and becomes very angry.) Per staff patient has:: no adverse event, no episodes of fall, agitated, noncompliant, refusing care (refusing meds) Internal Medicine Objective - Results Result Diagrams: 03/16/19 14:15 03/16/19 14:15 Recent Labs: Laboratory Last Values WBC 5.3 Th/cmm (4.8-10.8) 03/16/19 14:15 RBC 4.70 Mil/cmm (3.80-5.20) 03/16/19 14:15 Hgb 13.1 gm/dL (12-16) 03/16/19 14:15 Hct 39.0 % (41.0-60) L 03/16/19 14:15 MCV 82.9 fl (81-100) 03/16/19 14:15 MCH 27.9 pg (27.0-31.0) 03/16/19 14:15 MCHC Differential 33.6 pg (28.0-36.0) 03/16/19 14:15 RDW 13.1 % (11.5-20.0) 03/16/19 14:15 Plt Count 219 Th/cmm (150-400) 03/16/19 14:15 MPV 7.8 fl 03/16/19 14:15 Neutrophils % 63.6 % (40.0-80.0) 03/16/19 14:15 Lymphocytes % 29.1 % (20.0-50.0) 03/16/19 14:15 Monocytes % 5.3 % (2.0-10.0) 03/16/19 14:15 Eosinophils % 1.9 % (0.0-5.0) 03/16/19 14:15 Basophils % 0.1 % (0.0-2.0) 03/16/19 14:15 Sodium 135 mEq/L (136-145) L 03/16/19 14:15 Potassium 4.2 mEq/L (3.5-5.1) 03/16/19 14:15 Chloride 106 mEq/L (98-107) 03/16/19 14:15 Carbon Dioxide 23.2 mEq/L (21.0-31.0) 03/16/19 14:15 Anion Gap 10.0 (7.0-16.0) 03/16/19 14:15 BUN 30 mg/dL (7-25) H 03/16/19 14:15 Creatinine 0.9 mg/dL (0.6-1.2) 03/16/19 14:15 Est GFR ( Amer) TNP 03/16/19 14:15 Est GFR (Non-Af Amer) TNP 03/16/19 14:15 BUN/Creatinine Ratio 33.3 03/16/19 14:15 Glucose 113 mg/dL (70-105) H 03/16/19 14:15 POC Glucose 137 MG/DL (70 - 105) H 03/18/19 06:33 Calcium 8.5 mg/dL (8.6-10.3) L 03/16/19 14:15 Total Bilirubin 0.3 mg/dL (0.3-1.0) 03/16/19 14:15 AST 13 U/L (13-39) 03/16/19 14:15 ALT 11 U/L (7-52) 03/16/19 14:15 Alkaline Phosphatase 44 U/L (34-104) 03/16/19 14:15 Troponin I 0.01 ng/mL (0.01-0.05) 03/16/19 14:15 Total Protein 6.0 gm/dL (6.0-8.3) 03/16/19 14:15 Albumin 3.7 gm/dL (3.7-5.3) 03/16/19 14:15 Globulin 2.3 gm/dL 03/16/19 14:15 Albumin/Globulin Ratio 1.6 (1.0-1.8) 03/16/19 14:15 Triglycerides 122 mg/dL (<150) 03/16/19 14:15 Cholesterol 123 mg/dL (<200) 03/16/19 14:15 LDL Cholesterol Direct 79 mg/dL (75-193) 03/16/19 14:15 HDL Cholesterol 37 mg/dL (23-92) 03/16/19 14:15 TSH 1.64 uIU/ml (0.34-5.60) 03/16/19 14:15 Salicylates < 25.0 mg/L (30.0-100.0) L 03/16/19 14:15 Acetaminophen < 10.0 ug/mL (10.0-30.0) L 03/16/19 14:15 Ethyl Alcohol < 10 mg/dL (0-10) 03/16/19 14:15 RPR NONREACTIVE (NONREACTIVE) 03/16/19 14:15 - Physical Exam Vitals and I&O: Vital Signs Temp 97.8 F 03/23/19 04:48 Pulse 68 03/23/19 08:18 Resp 18 03/23/19 07:52 BP 107/63 03/23/19 08:18 Pulse Ox 97 03/23/19 04:48 Intake & Output 03/22/19 03/23/19 03/23/19 18:59 06:59 18:59 Intake Total 800 480 Balance 800 480 Intake: Oral 800 480 Other: # Voids 3 2 # Bowel Movements 1 Stool Characteristics Formed Formed Formed Active Medications: Current Medications Acetaminophen (Tylenol) 650 mg PO Q4HR PRN PRN Reason: Mild Pain / Temp above 100 Stop: 05/15/19 16:18 Last Admin: 03/22/19 03:51 Dose: 650 mg Al Hydrox/Mg Hydrox/Simethicone (Maalox) 30 ml PO Q4HR PRN PRN Reason: GI DISTRESS Stop: 05/15/19 16:18 Atorvastatin Calcium (Lipitor) 20 mg PO HS [facility]; Protocol Stop: 05/15/19 20:59 Last Admin: 03/22/19 20:52 Dose: 20 mg Calcium/Vitamin D (Oscal W/Vitamin D) 1 tab PO DAILY [facility] Stop: 05/16/19 08:59 Last Admin: 03/23/19 08:20 Dose: 1 tab Docusate Sodium (Colace) 100 mg PO DAILY [facility] Stop: 05/16/19 08:59 Last Admin: 03/23/19 08:20 Dose: 100 mg Fish Oil ([place] 3) 1,000 mg PO DAILY [facility] Stop: 05/16/19 08:59 Last Admin: 03/23/19 08:20 Dose: 1,000 mg Insulin Human Lispro (Humalog Insulin Sliding Scale) 0 units SUBQ ACHS [facility]; Protocol Stop: 05/16/19 16:29 Last Admin: 03/23/19 11:30 Dose: Not Given Lisinopril (Zestril) 20 mg PO HS YE Stop: 05/15/19 20:59 Last Admin: 03/22/19 20:41 Dose: 20 mg Lorazepam (Ativan) 0.5 mg PO Q4HR PRN; Protocol PRN Reason: Agitation Stop: 04/15/19 16:18 Last Admin: 03/21/19 23:06 Dose: 0.5 mg Lorazepam (Ativan) 1 mg PO Q8H PRN; Protocol PRN Reason: Agitation Stop: 05/15/19 18:29 Magnesium Hydroxide (Milk Of Magnesia) 30 ml PO HS PRN PRN Reason: Constipation Memantine (Namenda) 10 mg PO BID YE Stop: 05/16/19 08:59 Last Admin: 03/23/19 08:20 Dose: 10 mg Metoprolol Tartrate (Lopressor) 37.5 mg PO DAILY [facility] Stop: 05/16/19 08:59 Last Admin: 03/23/19 08:18 Dose: 37.5 mg Multivitamins/Vitamin C (Theragran) 1 tab PO DAILY [facility] Stop: 05/16/19 08:59 Last Admin: 03/23/19 08:18 Dose: 1 tab Risperidone (Risperdal) 1 mg PO BID YE; Protocol Stop: 05/21/19 08:59 Last Admin: 03/23/19 08:20 Dose: 1 mg Zolpidem Tartrate (Ambien) 5 mg PO HS PRN PRN Reason: Insomnia Stop: 05/15/19 16:18 Last Admin: 03/22/19 20:54 Dose: 5 mg General: demented, NAD HEENT: NC/AT, PERRLA Neck: Supple, No JVD Lungs: CTAB Cardiovascular: RRR, Normal S1, Normal S2 Abdomen: soft, non-tender, non-distended Extremities: excoriation Neurological: unable to follow command Internal Medicine Assmt/Plan - Assessment Assessment: HTN Dyslipidemia agitation Dementia - Plan Plan: continue home meds accucheck ac+hs with sliding scale fall precautions continue current plan of care Nutritional Asmnt/Malnutr-PDOC - Dietary Evaluation Malnutrition Findings (Please click <Entered> for more info): Nutritional Asmnt/Malnutrition Start: 03/20/19 09: 27 Text: Status: Complete Freq: Protocol: Document 03/20/19 09:27 [email or web address] (Rec: 03/20/19 10:09 DENYSLali TOD- [email or web address]) Nutritional Asmnt/Malnutrition Patient General Information Nutritional Screening Moderate Risk Diagnosis Psychosis Pertinent Medical Hx/Surgical Hx Hyperlipidemia, gout, afib, psychosis Subjective Information Patient was admitted from SNF. In bed at time of visit, lunch being served at this time. Per RN note, patient is withdrawn, flat affect, depressed. Nutrition education not appropriate at this time. Tolerating current diet witha adequate intake. Current Diet Order/ Nutrition Support Cardiac Patient / S.O Not Indicated Pertinent Medications maalox, lipitor, oscal W/d, colace, omega 3, humalog, MOM, Theragran Pertinent Labs (03/16) Na 135 Nutritional Hx/Data Height 5 ft 2 in Height (Calculated Centimeters) 157.5 Current Weight (lbs) 119 lb Weight (Calculated Kilograms) 54.0 Weight (Calculated Grams) 04594.5 [place] Body Weight 110 % [place] Body Weight 108 Body Mass Index (BMI) 21.7 Recent Weight Change No Weight Status Approriate GI Symptoms GI Symptoms None Last BM 03/18 x 1 Difficult in: None Food Allergies No Cultural/Ethnic/Gnosticism Belief none indicated Usual diet at home unknown Skin Integrity/Comment: Intact, Georgi 18 Current %PO Good (75-100%) Estimated Nutritional Goals BEE in Kcals: Using Current wt Calories/Kcals/Kg 25-30 kcal/kg using 54kg CBW Kcals Calculated ~3570-2928 kcal/day Protein: Using Current wt Protein g/k-1.2 gm/kg Protein Calculated ~55-65 gm/day Fluid: ml ~8255-8124 kcal/day Nutritional Problem No current Nutrition Prob Problem No nutrition diagnosis at this time Intervention/Recommendation Comments 1. Continue cardiac diet as tolerated by patient. Expected Outcomes/Goals Expected Outcomes/Goals oral intake >75% of meals, weight stable, nutrition related labs WNL F/U LR 03/27
--- NOTE | 2019-03-23 19:01 | Progress Notes ---
DATE: 03/23/2019 SUBJECTIVE: Chart reviewed and the patient interviewed. Also discussed the patient's condition with the staff and reviewed records and labs. The patient is still forgetful and is still confused. The patient also is still easily agitated and easily irritable at times. The patient also needs lots of redirections. Otherwise, the patient slept slightly better yesterday. ASSESSMENT: The patient is still confused and agitated. TREATMENT PLAN: Continue to monitor her behavior and her condition closely. Also, continue adjusting psychotropic medications and follow up closely. JOB# [id number]
[2019-03-23] MEDS: Atorvastatin Calcium 10 MG TAB PO SCH (21:05)
[2019-03-24] MEDS: INSULIN LISPRO SLIDING SCALE 100 UNITS/ML UNIT SUBQ SCH ×4 (07:00→20:47)
--- NOTE | 2019-03-24 08:14 | Progress Notes ---
DATE: SUBJECTIVE: Chart reviewed and the patient interviewed. Also discussed the patient's condition with the staff and reviewed records and labs. The patient continued to be confused. The patient also is loud and she is still unable to carry on coherent conversation and during my interview, the patient is rambling and unable to make sense at all. She also still needs redirections because of his confusion, but easier to redirect her. OBJECTIVE: Gait is steady and vital signs are stable. No new abnormal labs. ASSESSMENT: The patient is still confused and needs lots of redirections. TREATMENT PLAN: The patient continued to take Risperdal in a dose of 1 mg twice a day and we will continue same dose. Also, we will continue Namenda and we will continue to monitor her behavior closely. JOB# [id number]
[2019-03-24] MEDS: Fish Oil 1,000 MG SGL PO SCH (08:32)
[2019-03-24] MEDS: risperiDONE 1 mg/mL 30 mL Bottle PO SCH ×2 (08:34→16:11)
[2019-03-24] MEDS: Multivitamin Tab PO SCH (08:34)
[2019-03-24] MEDS: Calcium Carb/Vit D 500 mg/200 U Tab PO SCH (08:35)
--- NOTE | 2019-03-24 15:33 | Internal Medicine Prog Note ---
Internal Medicine Subjective - Subjective Service Date: 03/24/19 Patient seen and examined:: with staff Patient is:: asleep, verbal, arousable, in bed, agitated, confused Patient Complaints of:: other (Easily agitated and becomes very angry.) Per staff patient has:: no adverse event, no episodes of fall, agitated, noncompliant, refusing care (refusing meds) Internal Medicine Objective - Results Result Diagrams: 03/16/19 14:15 03/16/19 14:15 Recent Labs: Laboratory Last Values WBC 5.3 Th/cmm (4.8-10.8) 03/16/19 14:15 RBC 4.70 Mil/cmm (3.80-5.20) 03/16/19 14:15 Hgb 13.1 gm/dL (12-16) 03/16/19 14:15 Hct 39.0 % (41.0-60) L 03/16/19 14:15 MCV 82.9 fl (81-100) 03/16/19 14:15 MCH 27.9 pg (27.0-31.0) 03/16/19 14:15 MCHC Differential 33.6 pg (28.0-36.0) 03/16/19 14:15 RDW 13.1 % (11.5-20.0) 03/16/19 14:15 Plt Count 219 Th/cmm (150-400) 03/16/19 14:15 MPV 7.8 fl 03/16/19 14:15 Neutrophils % 63.6 % (40.0-80.0) 03/16/19 14:15 Lymphocytes % 29.1 % (20.0-50.0) 03/16/19 14:15 Monocytes % 5.3 % (2.0-10.0) 03/16/19 14:15 Eosinophils % 1.9 % (0.0-5.0) 03/16/19 14:15 Basophils % 0.1 % (0.0-2.0) 03/16/19 14:15 Sodium 135 mEq/L (136-145) L 03/16/19 14:15 Potassium 4.2 mEq/L (3.5-5.1) 03/16/19 14:15 Chloride 106 mEq/L (98-107) 03/16/19 14:15 Carbon Dioxide 23.2 mEq/L (21.0-31.0) 03/16/19 14:15 Anion Gap 10.0 (7.0-16.0) 03/16/19 14:15 BUN 30 mg/dL (7-25) H 03/16/19 14:15 Creatinine 0.9 mg/dL (0.6-1.2) 03/16/19 14:15 Est GFR ( Amer) TNP 03/16/19 14:15 Est GFR (Non-Af Amer) TNP 03/16/19 14:15 BUN/Creatinine Ratio 33.3 03/16/19 14:15 Glucose 113 mg/dL (70-105) H 03/16/19 14:15 POC Glucose 137 MG/DL (70 - 105) H 03/18/19 06:33 Calcium 8.5 mg/dL (8.6-10.3) L 03/16/19 14:15 Total Bilirubin 0.3 mg/dL (0.3-1.0) 03/16/19 14:15 AST 13 U/L (13-39) 03/16/19 14:15 ALT 11 U/L (7-52) 03/16/19 14:15 Alkaline Phosphatase 44 U/L (34-104) 03/16/19 14:15 Troponin I 0.01 ng/mL (0.01-0.05) 03/16/19 14:15 Total Protein 6.0 gm/dL (6.0-8.3) 03/16/19 14:15 Albumin 3.7 gm/dL (3.7-5.3) 03/16/19 14:15 Globulin 2.3 gm/dL 03/16/19 14:15 Albumin/Globulin Ratio 1.6 (1.0-1.8) 03/16/19 14:15 Triglycerides 122 mg/dL (<150) 03/16/19 14:15 Cholesterol 123 mg/dL (<200) 03/16/19 14:15 LDL Cholesterol Direct 79 mg/dL (75-193) 03/16/19 14:15 HDL Cholesterol 37 mg/dL (23-92) 03/16/19 14:15 TSH 1.64 uIU/ml (0.34-5.60) 03/16/19 14:15 Salicylates < 25.0 mg/L (30.0-100.0) L 03/16/19 14:15 Acetaminophen < 10.0 ug/mL (10.0-30.0) L 03/16/19 14:15 Ethyl Alcohol < 10 mg/dL (0-10) 03/16/19 14:15 RPR NONREACTIVE (NONREACTIVE) 03/16/19 14:15 - Physical Exam Vitals and I&O: Vital Signs Temp 97.7 F 03/24/19 04:51 Pulse 73 03/24/19 08:32 Resp 18 03/24/19 07:37 BP 119/68 03/24/19 08:32 Pulse Ox 90 03/24/19 04:51 Intake & Output 03/23/19 03/24/19 03/24/19 18:59 06:59 18:59 Intake Total 900 480 Balance 900 480 Intake: Oral 900 480 Other: # Voids 2 Stool Characteristics Formed Formed Formed Active Medications: Current Medications Acetaminophen (Tylenol) 650 mg PO Q4HR PRN PRN Reason: Mild Pain / Temp above 100 Stop: 05/15/19 16:18 Last Admin: 03/22/19 03:51 Dose: 650 mg Al Hydrox/Mg Hydrox/Simethicone (Maalox) 30 ml PO Q4HR PRN PRN Reason: GI DISTRESS Stop: 05/15/19 16:18 Atorvastatin Calcium (Lipitor) 20 mg PO HS [facility]; Protocol Stop: 05/15/19 20:59 Last Admin: 03/23/19 21:05 Dose: 20 mg Calcium/Vitamin D (Oscal W/Vitamin D) 1 tab PO DAILY [facility] Stop: 05/16/19 08:59 Last Admin: 03/24/19 08:35 Dose: 1 tab Docusate Sodium (Colace) 100 mg PO DAILY [facility] Stop: 05/16/19 08:59 Last Admin: 03/24/19 08:32 Dose: 100 mg Fish Oil ([place] 3) 1,000 mg PO DAILY [facility] Stop: 05/16/19 08:59 Last Admin: 03/24/19 08:32 Dose: 1,000 mg Insulin Human Lispro (Humalog Insulin Sliding Scale) 0 units SUBQ ACHS [facility]; Protocol Stop: 05/16/19 16:29 Last Admin: 03/24/19 11:30 Dose: Not Given Lisinopril (Zestril) 20 mg PO HS YE Stop: 05/15/19 20:59 Last Admin: 03/23/19 21:04 Dose: 20 mg Lorazepam (Ativan) 1 mg PO Q8H PRN; Protocol PRN Reason: Agitation Stop: 05/15/19 18:29 Magnesium Hydroxide (Milk Of Magnesia) 30 ml PO HS PRN PRN Reason: Constipation Memantine (Namenda) 10 mg PO BID YE Stop: 05/16/19 08:59 Last Admin: 03/24/19 08:34 Dose: 10 mg Metoprolol Tartrate (Lopressor) 37.5 mg PO DAILY [facility] Stop: 05/16/19 08:59 Last Admin: 03/24/19 08:32 Dose: 37.5 mg Multivitamins/Vitamin C (Theragran) 1 tab PO DAILY [facility] Stop: 05/16/19 08:59 Last Admin: 03/24/19 08:34 Dose: 1 tab Risperidone (Risperdal) 1 mg PO BID [facility]; Protocol Stop: 05/21/19 08:59 Last Admin: 03/24/19 08:34 Dose: 1 mg Physical Exam: Patient is very confused and non-coherent. General: demented, NAD HEENT: NC/AT, PERRLA Neck: Supple, No JVD Lungs: CTAB Cardiovascular: RRR, Normal S1, Normal S2 Abdomen: soft, non-tender, non-distended Extremities: excoriation Neurological: unable to follow command Internal Medicine Assmt/Plan - Assessment Assessment: Htn. Dyslipidemia. Agitated. Dementia. Diabetes. - Plan Plan: Continuation of care. Monitor Labs. Monitor vitals, Continue BP meds as directed. Accu-check daily, Insulin coverage sliding scale. Monitor Diet/Nutritional support. Supportive care. Continue collaborating with consulting specialists, case management and nursing team. Will Monitor patient and continue present care management. Nutritional Asmnt/Malnutr-PDOC - Dietary Evaluation Malnutrition Findings (Please click <Entered> for more info): Nutritional Asmnt/Malnutrition Start: 03/20/19 09: 27 Text: Status: Complete Freq: Protocol: Document 03/20/19 09:27 ABI (Rec: 03/20/19 10:09 ABI BARON- [email or web address]) Nutritional Asmnt/Malnutrition Patient General Information Nutritional Screening Moderate Risk Diagnosis Psychosis Pertinent Medical Hx/Surgical Hx Hyperlipidemia, gout, afib, psychosis Subjective Information Patient was admitted from SNF. In bed at time of visit, lunch being served at this time. Per RN note, patient is withdrawn, flat affect, depressed. Nutrition education not appropriate at this time. Tolerating current diet witha adequate intake. Current Diet Order/ Nutrition Support Cardiac Patient / S.O Not Indicated Pertinent Medications maalox, lipitor, oscal W/d, colace, omega 3, humalog, MOM, Theragran Pertinent Labs (03/16) Na 135 Nutritional Hx/Data Height 1.57 m Height (Calculated Centimeters) 157.5 Current Weight (lbs) 53.977 kg Weight (Calculated Kilograms) 54.0 Weight (Calculated Grams) 14079.5 [place] Body Weight 110 % [place] Body Weight 108 Body Mass Index (BMI) 21.7 Recent Weight Change No Weight Status Approriate GI Symptoms GI Symptoms None Last BM 03/18 x 1 Difficult in: None Food Allergies No Cultural/Ethnic/Judaism Belief none indicated Usual diet at home unknown Skin Integrity/Comment: Intact, Georgi 18 Current %PO Good (75-100%) Estimated Nutritional Goals BEE in Kcals: Using Current wt Calories/Kcals/Kg 25-30 kcal/kg using 54kg CBW Kcals Calculated ~7746-0649 kcal/day Protein: Using Current wt Protein g/k-1.2 gm/kg Protein Calculated ~55-65 gm/day Fluid: ml ~8575-3701 kcal/day Nutritional Problem No current Nutrition Prob Problem No nutrition diagnosis at this time Intervention/Recommendation Comments 1. Continue cardiac diet as tolerated by patient. Expected Outcomes/Goals Expected Outcomes/Goals oral intake >75% of meals, weight stable, nutrition related labs WNL F/U LR 03/27
[2019-03-24] MEDS: Atorvastatin Calcium 10 MG TAB PO SCH (20:42)
[2019-03-25] MEDS: INSULIN LISPRO SLIDING SCALE 100 UNITS/ML UNIT SUBQ SCH ×4 (06:31→21:30)
[2019-03-25] MEDS: Multivitamin Tab PO SCH (08:59)
[2019-03-25] MEDS: risperiDONE 1 mg/mL 30 mL Bottle PO SCH ×2 (08:59→17:10)
[2019-03-25] MEDS: Calcium Carb/Vit D 500 mg/200 U Tab PO SCH (09:00)
[2019-03-25] MEDS: Fish Oil 1,000 MG SGL PO SCH (09:00)
--- NOTE | 2019-03-25 10:25 | Progress Notes ---
DATE: SUBJECTIVE: Chart reviewed and the patient interviewed. Also discussed the patient's condition with the staff and reviewed records and labs. The patient continued to be confused and is still rambling and has disorganized thoughts. The patient also is still restless and she wants to be left alone and does not want to interact with anybody. She also is still easily agitated. Also, during interview, the patient has disorganized thoughts and has been unable to carry on coherent conversation. ASSESSMENT: The patient is still confused and needs lots of redirections. TREATMENT PLAN: Continue to monitor her condition and her behavior closely. Also, we will continue to work on her irritability and her agitation and confusion and adjusting psychotropic medications. JOB# [id number]
--- NOTE | 2019-03-25 16:22 | Internal Medicine Prog Note ---
Internal Medicine Subjective - Subjective Service Date: 03/25/19 Patient is:: asleep, verbal, arousable, in bed, agitated, confused Patient Complaints of:: other (Easily agitated and becomes very angry.) Per staff patient has:: no adverse event, no episodes of fall, agitated, noncompliant, refusing care (refusing meds) Internal Medicine Objective - Results Result Diagrams: 03/16/19 14:15 03/16/19 14:15 Recent Labs: Laboratory Last Values WBC 5.3 Th/cmm (4.8-10.8) 03/16/19 14:15 RBC 4.70 Mil/cmm (3.80-5.20) 03/16/19 14:15 Hgb 13.1 gm/dL (12-16) 03/16/19 14:15 Hct 39.0 % (41.0-60) L 03/16/19 14:15 MCV 82.9 fl (81-100) 03/16/19 14:15 MCH 27.9 pg (27.0-31.0) 03/16/19 14:15 MCHC Differential 33.6 pg (28.0-36.0) 03/16/19 14:15 RDW 13.1 % (11.5-20.0) 03/16/19 14:15 Plt Count 219 Th/cmm (150-400) 03/16/19 14:15 MPV 7.8 fl 03/16/19 14:15 Neutrophils % 63.6 % (40.0-80.0) 03/16/19 14:15 Lymphocytes % 29.1 % (20.0-50.0) 03/16/19 14:15 Monocytes % 5.3 % (2.0-10.0) 03/16/19 14:15 Eosinophils % 1.9 % (0.0-5.0) 03/16/19 14:15 Basophils % 0.1 % (0.0-2.0) 03/16/19 14:15 Sodium 135 mEq/L (136-145) L 03/16/19 14:15 Potassium 4.2 mEq/L (3.5-5.1) 03/16/19 14:15 Chloride 106 mEq/L (98-107) 03/16/19 14:15 Carbon Dioxide 23.2 mEq/L (21.0-31.0) 03/16/19 14:15 Anion Gap 10.0 (7.0-16.0) 03/16/19 14:15 BUN 30 mg/dL (7-25) H 03/16/19 14:15 Creatinine 0.9 mg/dL (0.6-1.2) 03/16/19 14:15 Est GFR ( Amer) TNP 03/16/19 14:15 Est GFR (Non-Af Amer) TNP 03/16/19 14:15 BUN/Creatinine Ratio 33.3 03/16/19 14:15 Glucose 113 mg/dL (70-105) H 03/16/19 14:15 POC Glucose 137 MG/DL (70 - 105) H 03/18/19 06:33 Calcium 8.5 mg/dL (8.6-10.3) L 03/16/19 14:15 Total Bilirubin 0.3 mg/dL (0.3-1.0) 03/16/19 14:15 AST 13 U/L (13-39) 03/16/19 14:15 ALT 11 U/L (7-52) 03/16/19 14:15 Alkaline Phosphatase 44 U/L (34-104) 03/16/19 14:15 Troponin I 0.01 ng/mL (0.01-0.05) 03/16/19 14:15 Total Protein 6.0 gm/dL (6.0-8.3) 03/16/19 14:15 Albumin 3.7 gm/dL (3.7-5.3) 03/16/19 14:15 Globulin 2.3 gm/dL 03/16/19 14:15 Albumin/Globulin Ratio 1.6 (1.0-1.8) 03/16/19 14:15 Triglycerides 122 mg/dL (<150) 03/16/19 14:15 Cholesterol 123 mg/dL (<200) 03/16/19 14:15 LDL Cholesterol Direct 79 mg/dL (75-193) 03/16/19 14:15 HDL Cholesterol 37 mg/dL (23-92) 03/16/19 14:15 TSH 1.64 uIU/ml (0.34-5.60) 03/16/19 14:15 Salicylates < 25.0 mg/L (30.0-100.0) L 03/16/19 14:15 Acetaminophen < 10.0 ug/mL (10.0-30.0) L 03/16/19 14:15 Ethyl Alcohol < 10 mg/dL (0-10) 03/16/19 14:15 RPR NONREACTIVE (NONREACTIVE) 03/16/19 14:15 - Physical Exam Vitals and I&O: Vital Signs Temp 97.6 F 03/25/19 06:28 Pulse 61 03/25/19 09:01 Resp 19 03/25/19 08:00 BP 122/66 03/25/19 09:01 Pulse Ox 98 03/25/19 06:28 Intake & Output 03/24/19 03/25/19 03/25/19 18:59 06:59 18:59 Intake Total 700 120 Balance 700 120 Intake: Oral 700 120 Other: # Voids 3 3 # Bowel Movements 0 Stool Characteristics Formed Formed Active Medications: Current Medications Acetaminophen (Tylenol) 650 mg PO Q4HR PRN PRN Reason: Mild Pain / Temp above 100 Stop: 05/15/19 16:18 Last Admin: 03/22/19 03:51 Dose: 650 mg Al Hydrox/Mg Hydrox/Simethicone (Maalox) 30 ml PO Q4HR PRN PRN Reason: GI DISTRESS Stop: 05/15/19 16:18 Atorvastatin Calcium (Lipitor) 20 mg PO HS [facility]; Protocol Stop: 05/15/19 20:59 Last Admin: 03/24/19 20:42 Dose: 20 mg Calcium/Vitamin D (Oscal W/Vitamin D) 1 tab PO DAILY [facility] Stop: 05/16/19 08:59 Last Admin: 03/25/19 09:00 Dose: 1 tab Docusate Sodium (Colace) 100 mg PO DAILY [facility] Stop: 05/16/19 08:59 Last Admin: 03/25/19 08:59 Dose: 100 mg Fish Oil ([place] 3) 1,000 mg PO DAILY [facility] Stop: 05/16/19 08:59 Last Admin: 03/25/19 09:00 Dose: 1,000 mg Insulin Human Lispro (Humalog Insulin Sliding Scale) 0 units SUBQ ACHS [facility]; Protocol Stop: 05/16/19 16:29 Last Admin: 03/25/19 12:12 Dose: Not Given Lisinopril (Zestril) 20 mg PO HS [facility] Stop: 05/15/19 20:59 Last Admin: 03/24/19 20:39 Dose: Not Given Lorazepam (Ativan) 1 mg PO Q8H PRN; Protocol PRN Reason: Agitation Stop: 05/15/19 18:29 Lorazepam (Ativan) 0.5 mg PO Q4HR PRN; Protocol PRN Reason: Anxiety Stop: 05/24/19 10:18 Magnesium Hydroxide (Milk Of Magnesia) 30 ml PO HS PRN PRN Reason: Constipation Memantine (Namenda) 10 mg PO BID [facility] Stop: 05/16/19 08:59 Last Admin: 03/25/19 09:00 Dose: 10 mg Metoprolol Tartrate (Lopressor) 37.5 mg PO DAILY [facility] Stop: 05/16/19 08:59 Last Admin: 03/25/19 09:01 Dose: 37.5 mg Multivitamins/Vitamin C (Theragran) 1 tab PO DAILY [facility] Stop: 05/16/19 08:59 Last Admin: 03/25/19 08:59 Dose: 1 tab Risperidone (Risperdal) 1 mg PO BID [facility]; Protocol Stop: 05/21/19 08:59 Last Admin: 03/25/19 08:59 Dose: 1 mg Zolpidem Tartrate (Ambien) 5 mg PO HS PRN PRN Reason: Insomnia Stop: 05/24/19 10:19 General: demented, NAD HEENT: NC/AT, PERRLA Neck: Supple, No JVD Lungs: CTAB Cardiovascular: RRR, Normal S1, Normal S2 Abdomen: soft, non-tender, non-distended Extremities: excoriation Neurological: unable to follow command Internal Medicine Assmt/Plan - Assessment Assessment: HTN Dyslipidemia agitation Dementia - Plan Plan: continue home meds accucheck ac+hs with sliding scale fall precautions continue current plan of care Nutritional Asmnt/Malnutr-PDOC - Dietary Evaluation Malnutrition Findings (Please click <Entered> for more info): Nutritional Asmnt/Malnutrition Start: 03/20/19 09: 27 Text: Status: Complete Freq: Protocol: Document 03/20/19 09:27 ABI (Rec: 03/20/19 10:09 ABI BARON- FN) Nutritional Asmnt/Malnutrition Patient General Information Nutritional Screening Moderate Risk Diagnosis Psychosis Pertinent Medical Hx/Surgical Hx Hyperlipidemia, gout, afib, psychosis Subjective Information Patient was admitted from SNF. In bed at time of visit, lunch being served at this time. Per RN note, patient is withdrawn, flat affect, depressed. Nutrition education not appropriate at this time. Tolerating current diet witha adequate intake. Current Diet Order/ Nutrition Support Cardiac Patient / S.O Not Indicated Pertinent Medications maalox, lipitor, oscal W/d, colace, omega 3, humalog, MOM, Theragran Pertinent Labs (03/16) Na 135 Nutritional Hx/Data Height 5 ft 2 in Height (Calculated Centimeters) 157.5 Current Weight (lbs) 119 lb Weight (Calculated Kilograms) 54.0 Weight (Calculated Grams) 61739.5 [place] Body Weight 110 % [place] Body Weight 108 Body Mass Index (BMI) 21.7 Recent Weight Change No Weight Status Approriate GI Symptoms GI Symptoms None Last BM 03/18 x 1 Difficult in: None Food Allergies No Cultural/Ethnic/Protestant Belief none indicated Usual diet at home unknown Skin Integrity/Comment: Intact, Georgi 18 Current %PO Good (75-100%) Estimated Nutritional Goals BEE in Kcals: Using Current wt Calories/Kcals/Kg 25-30 kcal/kg using 54kg CBW Kcals Calculated ~1420-6712 kcal/day Protein: Using Current wt Protein g/k-1.2 gm/kg Protein Calculated ~55-65 gm/day Fluid: ml ~7889-0368 kcal/day Nutritional Problem No current Nutrition Prob Problem No nutrition diagnosis at this time Intervention/Recommendation Comments 1. Continue cardiac diet as tolerated by patient. Expected Outcomes/Goals Expected Outcomes/Goals oral intake >75% of meals, weight stable, nutrition related labs WNL F/U LR 03/27
[2019-03-25] MEDS: Atorvastatin Calcium 10 MG TAB PO SCH (21:25)
[2019-03-26] MEDS: INSULIN LISPRO SLIDING SCALE 100 UNITS/ML UNIT SUBQ SCH ×4 (06:41→20:01)
[2019-03-26] MEDS: Fish Oil 1,000 MG SGL PO SCH (09:10)
[2019-03-26] MEDS: Multivitamin Tab PO SCH (09:10)
[2019-03-26] MEDS: Calcium Carb/Vit D 500 mg/200 U Tab PO SCH (09:10)
[2019-03-26] MEDS: risperiDONE 1 mg/mL 30 mL Bottle PO SCH ×2 (09:12→18:05)
--- NOTE | 2019-03-26 14:00 | Internal Medicine Prog Note ---
Internal Medicine Subjective - Subjective Service Date: 03/26/19 Patient seen and examined:: with staff Patient is:: asleep, verbal, arousable, in bed, agitated, confused Patient Complaints of:: other (Easily agitated and becomes very angry.) Per staff patient has:: no adverse event, no episodes of fall, agitated, noncompliant, refusing care (refusing meds) Internal Medicine Objective - Results Result Diagrams: 03/16/19 14:15 03/16/19 14:15 Recent Labs: Laboratory Last Values WBC 5.3 Th/cmm (4.8-10.8) 03/16/19 14:15 RBC 4.70 Mil/cmm (3.80-5.20) 03/16/19 14:15 Hgb 13.1 gm/dL (12-16) 03/16/19 14:15 Hct 39.0 % (41.0-60) L 03/16/19 14:15 MCV 82.9 fl (81-100) 03/16/19 14:15 MCH 27.9 pg (27.0-31.0) 03/16/19 14:15 MCHC Differential 33.6 pg (28.0-36.0) 03/16/19 14:15 RDW 13.1 % (11.5-20.0) 03/16/19 14:15 Plt Count 219 Th/cmm (150-400) 03/16/19 14:15 MPV 7.8 fl 03/16/19 14:15 Neutrophils % 63.6 % (40.0-80.0) 03/16/19 14:15 Lymphocytes % 29.1 % (20.0-50.0) 03/16/19 14:15 Monocytes % 5.3 % (2.0-10.0) 03/16/19 14:15 Eosinophils % 1.9 % (0.0-5.0) 03/16/19 14:15 Basophils % 0.1 % (0.0-2.0) 03/16/19 14:15 Sodium 135 mEq/L (136-145) L 03/16/19 14:15 Potassium 4.2 mEq/L (3.5-5.1) 03/16/19 14:15 Chloride 106 mEq/L (98-107) 03/16/19 14:15 Carbon Dioxide 23.2 mEq/L (21.0-31.0) 03/16/19 14:15 Anion Gap 10.0 (7.0-16.0) 03/16/19 14:15 BUN 30 mg/dL (7-25) H 03/16/19 14:15 Creatinine 0.9 mg/dL (0.6-1.2) 03/16/19 14:15 Est GFR ( Amer) TNP 03/16/19 14:15 Est GFR (Non-Af Amer) TNP 03/16/19 14:15 BUN/Creatinine Ratio 33.3 03/16/19 14:15 Glucose 113 mg/dL (70-105) H 03/16/19 14:15 POC Glucose 137 MG/DL (70 - 105) H 03/18/19 06:33 Calcium 8.5 mg/dL (8.6-10.3) L 03/16/19 14:15 Total Bilirubin 0.3 mg/dL (0.3-1.0) 03/16/19 14:15 AST 13 U/L (13-39) 03/16/19 14:15 ALT 11 U/L (7-52) 03/16/19 14:15 Alkaline Phosphatase 44 U/L (34-104) 03/16/19 14:15 Troponin I 0.01 ng/mL (0.01-0.05) 03/16/19 14:15 Total Protein 6.0 gm/dL (6.0-8.3) 03/16/19 14:15 Albumin 3.7 gm/dL (3.7-5.3) 03/16/19 14:15 Globulin 2.3 gm/dL 03/16/19 14:15 Albumin/Globulin Ratio 1.6 (1.0-1.8) 03/16/19 14:15 Triglycerides 122 mg/dL (<150) 03/16/19 14:15 Cholesterol 123 mg/dL (<200) 03/16/19 14:15 LDL Cholesterol Direct 79 mg/dL (75-193) 03/16/19 14:15 HDL Cholesterol 37 mg/dL (23-92) 03/16/19 14:15 TSH 1.64 uIU/ml (0.34-5.60) 03/16/19 14:15 Salicylates < 25.0 mg/L (30.0-100.0) L 03/16/19 14:15 Acetaminophen < 10.0 ug/mL (10.0-30.0) L 03/16/19 14:15 Ethyl Alcohol < 10 mg/dL (0-10) 03/16/19 14:15 RPR NONREACTIVE (NONREACTIVE) 03/16/19 14:15 - Physical Exam Vitals and I&O: Vital Signs Temp 97.6 F 03/26/19 06:52 Pulse 72 03/26/19 09:10 Resp 20 03/26/19 06:52 BP 115/64 03/26/19 09:10 Pulse Ox 96 03/26/19 06:52 Intake & Output 03/25/19 03/26/19 03/26/19 18:59 06:59 18:59 Intake Total 415 240 Balance 415 240 Intake: Oral 415 240 Other: # Voids 3 1 Active Medications: Current Medications Acetaminophen (Tylenol) 650 mg PO Q4HR PRN PRN Reason: Mild Pain / Temp above 100 Stop: 05/15/19 16:18 Last Admin: 03/22/19 03:51 Dose: 650 mg Al Hydrox/Mg Hydrox/Simethicone (Maalox) 30 ml PO Q4HR PRN PRN Reason: GI DISTRESS Stop: 05/15/19 16:18 Atorvastatin Calcium (Lipitor) 20 mg PO HS [facility]; Protocol Stop: 05/15/19 20:59 Last Admin: 03/25/19 21:25 Dose: 20 mg Calcium/Vitamin D (Oscal W/Vitamin D) 1 tab PO DAILY [facility] Stop: 05/16/19 08:59 Last Admin: 03/26/19 09:10 Dose: 1 tab Docusate Sodium (Colace) 100 mg PO DAILY [facility] Stop: 05/16/19 08:59 Last Admin: 03/26/19 09:10 Dose: 100 mg Fish Oil ([place] 3) 1,000 mg PO DAILY [facility] Stop: 05/16/19 08:59 Last Admin: 03/26/19 09:10 Dose: 1,000 mg Insulin Human Lispro (Humalog Insulin Sliding Scale) 0 units SUBQ ACHS [facility]; Protocol Stop: 05/16/19 16:29 Last Admin: 03/26/19 11:37 Dose: 4 units Lisinopril (Zestril) 20 mg PO HS [facility] Stop: 05/15/19 20:59 Last Admin: 03/25/19 21:29 Dose: 20 mg Lorazepam (Ativan) 1 mg PO Q8H PRN; Protocol PRN Reason: Agitation Stop: 05/15/19 18:29 Lorazepam (Ativan) 0.5 mg PO Q4HR PRN; Protocol PRN Reason: Anxiety Stop: 05/24/19 10:18 Magnesium Hydroxide (Milk Of Magnesia) 30 ml PO HS PRN PRN Reason: Constipation Memantine (Namenda) 10 mg PO BID [facility] Stop: 05/16/19 08:59 Last Admin: 03/26/19 09:10 Dose: 10 mg Metoprolol Tartrate (Lopressor) 37.5 mg PO DAILY [facility] Stop: 05/16/19 08:59 Last Admin: 03/26/19 09:10 Dose: 37.5 mg Multivitamins/Vitamin C (Theragran) 1 tab PO DAILY [facility] Stop: 05/16/19 08:59 Last Admin: 03/26/19 09:10 Dose: 1 tab Risperidone (Risperdal) 1 mg PO BID [facility]; Protocol Stop: 05/21/19 08:59 Last Admin: 03/26/19 09:12 Dose: 1 mg Zolpidem Tartrate (Ambien) 5 mg PO HS PRN PRN Reason: Insomnia Stop: 05/24/19 10:19 Physical Exam: Patient is easily irritated and dis-oriented. General: demented, NAD HEENT: NC/AT, PERRLA Neck: Supple, No JVD Lungs: CTAB Cardiovascular: RRR, Normal S1, Normal S2 Abdomen: soft, non-tender, non-distended Extremities: excoriation Neurological: unable to follow command Internal Medicine Assmt/Plan - Assessment Assessment: Htn. Dyslipidemia. Agitated. Dementia. Diabetes. - Plan Plan: Continuation of care. Monitor Labs. Monitor vitals, Continue BP meds as directed. Accu-check daily, Insulin coverage sliding scale. Monitor Diet/Nutritional support. Supportive care. Continue collaborating with consulting specialists, case management and nursing team. Will Monitor patient and continue present care management. Nutritional Asmnt/Malnutr-PDOC - Dietary Evaluation Malnutrition Findings (Please click <Entered> for more info): Nutritional Asmnt/Malnutrition Start: 03/20/19 09: 27 Text: Status: Complete Freq: Protocol: Document 03/20/19 09:27 DENYSJANET (Rec: 03/20/19 10:09 ABI TOD- [email or web address]) Nutritional Asmnt/Malnutrition Patient General Information Nutritional Screening Moderate Risk Diagnosis Psychosis Pertinent Medical Hx/Surgical Hx Hyperlipidemia, gout, afib, psychosis Subjective Information Patient was admitted from SNF. In bed at time of visit, lunch being served at this time. Per RN note, patient is withdrawn, flat affect, depressed. Nutrition education not appropriate at this time. Tolerating current diet witha adequate intake. Current Diet Order/ Nutrition Support Cardiac Patient / S.O Not Indicated Pertinent Medications maalox, lipitor, oscal W/d, colace, omega 3, humalog, MOM, Theragran Pertinent Labs (03/16) Na 135 Nutritional Hx/Data Height 1.57 m Height (Calculated Centimeters) 157.5 Current Weight (lbs) 53.977 kg Weight (Calculated Kilograms) 54.0 Weight (Calculated Grams) 17842.5 [place] Body Weight 110 % [place]bright Body Weight 108 Body Mass Index (BMI) 21.7 Recent Weight Change No Weight Status Approriate GI Symptoms GI Symptoms None Last BM 03/18 x 1 Difficult in: None Food Allergies No Cultural/Ethnic/Yazidism Belief none indicated Usual diet at home unknown Skin Integrity/Comment: Intact, Georgi 18 Current %PO Good (75-100%) Estimated Nutritional Goals BEE in Kcals: Using Current wt Calories/Kcals/Kg 25-30 kcal/kg using 54kg CBW Kcals Calculated ~5061-3819 kcal/day Protein: Using Current wt Protein g/k-1.2 gm/kg Protein Calculated ~55-65 gm/day Fluid: ml ~4089-7207 kcal/day Nutritional Problem No current Nutrition Prob Problem No nutrition diagnosis at this time Intervention/Recommendation Comments 1. Continue cardiac diet as tolerated by patient. Expected Outcomes/Goals Expected Outcomes/Goals oral intake >75% of meals, weight stable, nutrition related labs WNL F/U LR 03/27
--- NOTE | 2019-03-26 20:45 | Progress Notes ---
DATE: SUBJECTIVE: Chart reviewed and the patient interviewed. Also discussed the patient's condition with the staff and reviewed records and labs. The patient is still confused and she is still in angry and irritable mood. The patient also is talking in a loud tone voice and rambling and her thought processes are circumstantial and tangential with flight of ideas. She also is still easily agitated and easily irritable. The patient needs lots of redirections because of her confusion and her agitation. Otherwise, the patient is compliant with taking her medications with no side effects of medications. ASSESSMENT: The patient is still confused and agitated. TREATMENT PLAN: We will continue monitoring her behavior and her condition and continue to work on behavioral modification. Also, continue Risperdal in a dose of 1 mg twice a day and also Namenda 10 mg twice a day. Vital signs are stable and no new labs available for review. JOB# [id number]
[2019-03-26] MEDS: Atorvastatin Calcium 10 MG TAB PO SCH (20:51)
[2019-03-27] MEDS: INSULIN LISPRO SLIDING SCALE 100 UNITS/ML UNIT SUBQ SCH ×4 (06:43→21:12)
[2019-03-27] MEDS: Fish Oil 1,000 MG SGL PO SCH (09:28)
[2019-03-27] MEDS: Calcium Carb/Vit D 500 mg/200 U Tab PO SCH (09:28)
[2019-03-27] MEDS: Multivitamin Tab PO SCH (09:28)
[2019-03-27] MEDS: risperiDONE 1 mg/mL 30 mL Bottle PO SCH ×2 (09:34→17:45)
--- NOTE | 2019-03-27 11:35 | Internal Medicine Prog Note ---
Internal Medicine Subjective - Subjective Service Date: 03/27/19 Patient seen and examined:: with staff, chart reviewed Patient is:: asleep, verbal, arousable, in bed, agitated, confused Patient Complaints of:: other (Easily agitated and becomes very angry.) Per staff patient has:: no adverse event, no episodes of fall, agitated, noncompliant, refusing care (refusing meds) Internal Medicine Objective - Results Result Diagrams: 03/16/19 14:15 03/16/19 14:15 Recent Labs: Laboratory Last Values WBC 5.3 Th/cmm (4.8-10.8) 03/16/19 14:15 RBC 4.70 Mil/cmm (3.80-5.20) 03/16/19 14:15 Hgb 13.1 gm/dL (12-16) 03/16/19 14:15 Hct 39.0 % (41.0-60) L 03/16/19 14:15 MCV 82.9 fl (81-100) 03/16/19 14:15 MCH 27.9 pg (27.0-31.0) 03/16/19 14:15 MCHC Differential 33.6 pg (28.0-36.0) 03/16/19 14:15 RDW 13.1 % (11.5-20.0) 03/16/19 14:15 Plt Count 219 Th/cmm (150-400) 03/16/19 14:15 MPV 7.8 fl 03/16/19 14:15 Neutrophils % 63.6 % (40.0-80.0) 03/16/19 14:15 Lymphocytes % 29.1 % (20.0-50.0) 03/16/19 14:15 Monocytes % 5.3 % (2.0-10.0) 03/16/19 14:15 Eosinophils % 1.9 % (0.0-5.0) 03/16/19 14:15 Basophils % 0.1 % (0.0-2.0) 03/16/19 14:15 Sodium 135 mEq/L (136-145) L 03/16/19 14:15 Potassium 4.2 mEq/L (3.5-5.1) 03/16/19 14:15 Chloride 106 mEq/L (98-107) 03/16/19 14:15 Carbon Dioxide 23.2 mEq/L (21.0-31.0) 03/16/19 14:15 Anion Gap 10.0 (7.0-16.0) 03/16/19 14:15 BUN 30 mg/dL (7-25) H 03/16/19 14:15 Creatinine 0.9 mg/dL (0.6-1.2) 03/16/19 14:15 Est GFR ( Amer) TNP 03/16/19 14:15 Est GFR (Non-Af Amer) TNP 03/16/19 14:15 BUN/Creatinine Ratio 33.3 03/16/19 14:15 Glucose 113 mg/dL (70-105) H 03/16/19 14:15 POC Glucose 137 MG/DL (70 - 105) H 03/18/19 06:33 Calcium 8.5 mg/dL (8.6-10.3) L 03/16/19 14:15 Total Bilirubin 0.3 mg/dL (0.3-1.0) 03/16/19 14:15 AST 13 U/L (13-39) 03/16/19 14:15 ALT 11 U/L (7-52) 03/16/19 14:15 Alkaline Phosphatase 44 U/L (34-104) 03/16/19 14:15 Troponin I 0.01 ng/mL (0.01-0.05) 03/16/19 14:15 Total Protein 6.0 gm/dL (6.0-8.3) 03/16/19 14:15 Albumin 3.7 gm/dL (3.7-5.3) 03/16/19 14:15 Globulin 2.3 gm/dL 03/16/19 14:15 Albumin/Globulin Ratio 1.6 (1.0-1.8) 03/16/19 14:15 Triglycerides 122 mg/dL (<150) 03/16/19 14:15 Cholesterol 123 mg/dL (<200) 03/16/19 14:15 LDL Cholesterol Direct 79 mg/dL (75-193) 03/16/19 14:15 HDL Cholesterol 37 mg/dL (23-92) 03/16/19 14:15 TSH 1.64 uIU/ml (0.34-5.60) 03/16/19 14:15 Salicylates < 25.0 mg/L (30.0-100.0) L 03/16/19 14:15 Acetaminophen < 10.0 ug/mL (10.0-30.0) L 03/16/19 14:15 Ethyl Alcohol < 10 mg/dL (0-10) 03/16/19 14:15 RPR NONREACTIVE (NONREACTIVE) 03/16/19 14:15 - Physical Exam Vitals and I&O: Vital Signs Temp 97 F 03/27/19 07:17 Pulse 68 03/27/19 09:31 Resp 18 03/27/19 07:43 BP 111/64 03/27/19 09:31 Pulse Ox 95 03/27/19 07:17 Intake & Output 03/26/19 03/27/19 03/27/19 18:59 06:59 18:59 Intake Total 1200 480 Balance 1200 480 Intake: Oral 1200 480 Other: # Voids 3 2 # Bowel Movements 0 Active Medications: Current Medications Acetaminophen (Tylenol) 650 mg PO Q4HR PRN PRN Reason: Mild Pain / Temp above 100 Stop: 05/15/19 16:18 Last Admin: 03/22/19 03:51 Dose: 650 mg Al Hydrox/Mg Hydrox/Simethicone (Maalox) 30 ml PO Q4HR PRN PRN Reason: GI DISTRESS Stop: 05/15/19 16:18 Atorvastatin Calcium (Lipitor) 20 mg PO HS YE; Protocol Stop: 05/15/19 20:59 Last Admin: 03/26/19 20:51 Dose: 20 mg Calcium/Vitamin D (Oscal W/Vitamin D) 1 tab PO DAILY YE Stop: 05/16/19 08:59 Last Admin: 03/27/19 09:28 Dose: 1 tab Docusate Sodium (Colace) 100 mg PO DAILY [facility] Stop: 05/16/19 08:59 Last Admin: 03/27/19 09:28 Dose: 100 mg Fish Oil ([place] 3) 1,000 mg PO DAILY [facility] Stop: 05/16/19 08:59 Last Admin: 03/27/19 09:28 Dose: 1,000 mg Insulin Human Lispro (Humalog Insulin Sliding Scale) 0 units SUBQ ACHS [facility]; Protocol Stop: 05/16/19 16:29 Last Admin: 03/27/19 06:43 Dose: Not Given Lisinopril (Zestril) 20 mg PO HS YE Stop: 05/15/19 20:59 Last Admin: 03/26/19 20:54 Dose: Not Given Lorazepam (Ativan) 1 mg PO Q8H PRN; Protocol PRN Reason: Agitation Stop: 05/15/19 18:29 Lorazepam (Ativan) 0.5 mg PO Q4HR PRN; Protocol PRN Reason: Anxiety Stop: 05/24/19 10:18 Magnesium Hydroxide (Milk Of Magnesia) 30 ml PO HS PRN PRN Reason: Constipation Memantine (Namenda) 10 mg PO BID YE Stop: 05/16/19 08:59 Last Admin: 03/27/19 09:28 Dose: 10 mg Metoprolol Tartrate (Lopressor) 37.5 mg PO DAILY [facility] Stop: 05/16/19 08:59 Last Admin: 03/27/19 09:31 Dose: 37.5 mg Multivitamins/Vitamin C (Theragran) 1 tab PO DAILY [facility] Stop: 05/16/19 08:59 Last Admin: 03/27/19 09:28 Dose: 1 tab Risperidone (Risperdal) 1 mg PO BID YE; Protocol Stop: 05/21/19 08:59 Last Admin: 03/27/19 09:34 Dose: 1 mg Zolpidem Tartrate (Ambien) 5 mg PO HS PRN PRN Reason: Insomnia Stop: 05/24/19 10:19 Physical Exam: Patient continues to be easily irritated, angry and confused. General: demented, NAD HEENT: NC/AT, PERRLA Neck: Supple, No JVD Lungs: CTAB Cardiovascular: RRR, Normal S1, Normal S2 Abdomen: soft, non-tender, non-distended Extremities: excoriation Neurological: unable to follow command Internal Medicine Assmt/Plan - Assessment Assessment: Htn. Dyslipidemia. Agitated. Dementia. Diabetes. - Plan Plan: Continuation of care. Monitor Labs. Monitor vitals, Continue BP meds as directed. Accu-check daily, Insulin coverage sliding scale. Monitor Diet/Nutritional support. Supportive care. Continue collaborating with consulting specialists, case management and nursing team. Will Monitor patient and continue present care management. Nutritional Asmnt/Malnutr-PDOC - Dietary Evaluation Malnutrition Findings (Please click <Entered> for more info): Nutritional Asmnt/Malnutrition Start: 03/20/19 09: 27 Text: Status: Complete Freq: Protocol: Document 03/20/19 09:27 DENYSJANET (Rec: 03/20/19 10:09 DENYSJANET BARON- [email or web address]) Nutritional Asmnt/Malnutrition Patient General Information Nutritional Screening Moderate Risk Diagnosis Psychosis Pertinent Medical Hx/Surgical Hx Hyperlipidemia, gout, afib, psychosis Subjective Information Patient was admitted from SNF. In bed at time of visit, lunch being served at this time. Per RN note, patient is withdrawn, flat affect, depressed. Nutrition education not appropriate at this time. Tolerating current diet witha adequate intake. Current Diet Order/ Nutrition Support Cardiac Patient / S.O Not Indicated Pertinent Medications maalox, lipitor, oscal W/d, colace, omega 3, humalog, MOM, Theragran Pertinent Labs (03/16) Na 135 Nutritional Hx/Data Height 1.57 m Height (Calculated Centimeters) 157.5 Current Weight (lbs) 53.977 kg Weight (Calculated Kilograms) 54.0 Weight (Calculated Grams) 65325.5 [place] Body Weight 110 % [place] Body Weight 108 Body Mass Index (BMI) 21.7 Recent Weight Change No Weight Status Approriate GI Symptoms GI Symptoms None Last BM 03/18 x 1 Difficult in: None Food Allergies No Cultural/Ethnic/Ep[employer]opalian Belief none indicated Usual diet at home unknown Skin Integrity/Comment: Intact, Georgi 18 Current %PO Good (75-100%) Estimated Nutritional Goals BEE in Kcals: Using Current wt Calories/Kcals/Kg 25-30 kcal/kg using 54kg CBW Kcals Calculated ~1096-3525 kcal/day Protein: Using Current wt Protein g/k-1.2 gm/kg Protein Calculated ~55-65 gm/day Fluid: ml ~7867-3792 kcal/day Nutritional Problem No current Nutrition Prob Problem No nutrition diagnosis at this time Intervention/Recommendation Comments 1. Continue cardiac diet as tolerated by patient. Expected Outcomes/Goals Expected Outcomes/Goals oral intake >75% of meals, weight stable, nutrition related labs WNL F/U LR 03/27
[2019-03-27] MEDS: Atorvastatin Calcium 10 MG TAB PO SCH (20:48)
--- NOTE | 2019-03-27 23:49 | Progress Notes ---
DATE: 03/27/2019 SUBJECTIVE: Chart reviewed and the patient interviewed. Also discussed the patient's condition with the staff and reviewed records and labs. The patient is still agitated and she still tries to strike caregivers and others at times. She also still tries to get out of the [employer] chair and exposing herself to dangers of falling. Also, is still in a depressed mood. The patient also still needs lots of redirections. Otherwise, the patient continued to comply with taking her medications with no side effects. She is still loud and she is still paranoid. ASSESSMENT: The patient is still psychotic and agitated. TREATMENT PLAN: Continue monitoring her behavior and her condition closely. Also, we will continue Risperdal 1 mg twice a day and Namenda 10 mg twice a day and we will continue to follow up closely. JOB# [id number]
[2019-03-28] MEDS: INSULIN LISPRO SLIDING SCALE 100 UNITS/ML UNIT SUBQ SCH ×4 (06:47→21:40)
[2019-03-28] MEDS: Calcium Carb/Vit D 500 mg/200 U Tab PO SCH (10:15)
[2019-03-28] MEDS: Fish Oil 1,000 MG SGL PO SCH (10:16)
[2019-03-28] MEDS: risperiDONE 1 mg/mL 30 mL Bottle PO SCH ×2 (10:16→17:00)
[2019-03-28] MEDS: Multivitamin Tab PO SCH (10:16)
--- NOTE | 2019-03-28 16:02 | Internal Medicine Prog Note ---
Internal Medicine Subjective - Subjective Service Date: 03/28/19 Patient seen and examined:: with staff, chart reviewed Patient is:: asleep, verbal, arousable, in bed, agitated, confused Patient Complaints of:: other (Easily agitated and becomes very angry.) Per staff patient has:: no adverse event, no episodes of fall, agitated, noncompliant, refusing care (refusing meds) Internal Medicine Objective - Results Result Diagrams: 03/16/19 14:15 03/16/19 14:15 Recent Labs: Laboratory Last Values WBC 5.3 Th/cmm (4.8-10.8) 03/16/19 14:15 RBC 4.70 Mil/cmm (3.80-5.20) 03/16/19 14:15 Hgb 13.1 gm/dL (12-16) 03/16/19 14:15 Hct 39.0 % (41.0-60) L 03/16/19 14:15 MCV 82.9 fl (81-100) 03/16/19 14:15 MCH 27.9 pg (27.0-31.0) 03/16/19 14:15 MCHC Differential 33.6 pg (28.0-36.0) 03/16/19 14:15 RDW 13.1 % (11.5-20.0) 03/16/19 14:15 Plt Count 219 Th/cmm (150-400) 03/16/19 14:15 MPV 7.8 fl 03/16/19 14:15 Neutrophils % 63.6 % (40.0-80.0) 03/16/19 14:15 Lymphocytes % 29.1 % (20.0-50.0) 03/16/19 14:15 Monocytes % 5.3 % (2.0-10.0) 03/16/19 14:15 Eosinophils % 1.9 % (0.0-5.0) 03/16/19 14:15 Basophils % 0.1 % (0.0-2.0) 03/16/19 14:15 Sodium 135 mEq/L (136-145) L 03/16/19 14:15 Potassium 4.2 mEq/L (3.5-5.1) 03/16/19 14:15 Chloride 106 mEq/L (98-107) 03/16/19 14:15 Carbon Dioxide 23.2 mEq/L (21.0-31.0) 03/16/19 14:15 Anion Gap 10.0 (7.0-16.0) 03/16/19 14:15 BUN 30 mg/dL (7-25) H 03/16/19 14:15 Creatinine 0.9 mg/dL (0.6-1.2) 03/16/19 14:15 Est GFR ( Amer) TNP 03/16/19 14:15 Est GFR (Non-Af Amer) TNP 03/16/19 14:15 BUN/Creatinine Ratio 33.3 03/16/19 14:15 Glucose 113 mg/dL (70-105) H 03/16/19 14:15 POC Glucose 137 MG/DL (70 - 105) H 03/18/19 06:33 Calcium 8.5 mg/dL (8.6-10.3) L 03/16/19 14:15 Total Bilirubin 0.3 mg/dL (0.3-1.0) 03/16/19 14:15 AST 13 U/L (13-39) 03/16/19 14:15 ALT 11 U/L (7-52) 03/16/19 14:15 Alkaline Phosphatase 44 U/L (34-104) 03/16/19 14:15 Troponin I 0.01 ng/mL (0.01-0.05) 03/16/19 14:15 Total Protein 6.0 gm/dL (6.0-8.3) 03/16/19 14:15 Albumin 3.7 gm/dL (3.7-5.3) 03/16/19 14:15 Globulin 2.3 gm/dL 03/16/19 14:15 Albumin/Globulin Ratio 1.6 (1.0-1.8) 03/16/19 14:15 Triglycerides 122 mg/dL (<150) 03/16/19 14:15 Cholesterol 123 mg/dL (<200) 03/16/19 14:15 LDL Cholesterol Direct 79 mg/dL (75-193) 03/16/19 14:15 HDL Cholesterol 37 mg/dL (23-92) 03/16/19 14:15 TSH 1.64 uIU/ml (0.34-5.60) 03/16/19 14:15 Salicylates < 25.0 mg/L (30.0-100.0) L 03/16/19 14:15 Acetaminophen < 10.0 ug/mL (10.0-30.0) L 03/16/19 14:15 Ethyl Alcohol < 10 mg/dL (0-10) 03/16/19 14:15 RPR NONREACTIVE (NONREACTIVE) 03/16/19 14:15 - Physical Exam Vitals and I&O: Vital Signs Temp 98.7 F 03/28/19 14:00 Pulse 87 03/28/19 14:00 Resp 18 03/28/19 14:00 BP 102/54 03/28/19 14:00 Pulse Ox 97 03/28/19 14:00 Intake & Output 03/27/19 03/28/19 03/28/19 18:59 06:59 18:59 Intake Total 1580 120 Balance 1580 120 Intake: Oral 1580 120 Other: # Voids 3 2 # Bowel Movements 0 Active Medications: Current Medications Acetaminophen (Tylenol) 650 mg PO Q4HR PRN PRN Reason: Mild Pain / Temp above 100 Stop: 05/15/19 16:18 Last Admin: 03/22/19 03:51 Dose: 650 mg Al Hydrox/Mg Hydrox/Simethicone (Maalox) 30 ml PO Q4HR PRN PRN Reason: GI DISTRESS Stop: 05/15/19 16:18 Atorvastatin Calcium (Lipitor) 20 mg PO HS YE; Protocol Stop: 05/15/19 20:59 Last Admin: 03/27/19 20:48 Dose: Not Given Calcium/Vitamin D (Oscal W/Vitamin D) 1 tab PO DAILY [facility] Stop: 05/16/19 08:59 Last Admin: 03/28/19 10:15 Dose: 1 tab Docusate Sodium (Colace) 100 mg PO DAILY [facility] Stop: 05/16/19 08:59 Last Admin: 03/28/19 10:15 Dose: 100 mg Fish Oil ([place] 3) 1,000 mg PO DAILY [facility] Stop: 05/16/19 08:59 Last Admin: 03/28/19 10:16 Dose: 1,000 mg Insulin Human Lispro (Humalog Insulin Sliding Scale) 0 units SUBQ ACHS [facility]; Protocol Stop: 05/16/19 16:29 Last Admin: 03/28/19 11:21 Dose: Not Given Lisinopril (Zestril) 20 mg PO HS YE Stop: 05/15/19 20:59 Last Admin: 03/27/19 21:03 Dose: Not Given Lorazepam (Ativan) 1 mg PO Q8H PRN; Protocol PRN Reason: Agitation Stop: 05/15/19 18:29 Lorazepam (Ativan) 0.5 mg PO Q4HR PRN; Protocol PRN Reason: Anxiety Stop: 05/24/19 10:18 Magnesium Hydroxide (Milk Of Magnesia) 30 ml PO HS PRN PRN Reason: Constipation Memantine (Namenda) 10 mg PO BID YE Stop: 05/16/19 08:59 Last Admin: 03/28/19 10:15 Dose: 10 mg Metoprolol Tartrate (Lopressor) 37.5 mg PO DAILY [facility] Stop: 05/16/19 08:59 Last Admin: 03/28/19 10:16 Dose: Not Given Multivitamins/Vitamin C (Theragran) 1 tab PO DAILY [facility] Stop: 05/16/19 08:59 Last Admin: 03/28/19 10:16 Dose: 1 tab Risperidone (Risperdal) 1 mg PO BID YE; Protocol Stop: 05/21/19 08:59 Last Admin: 03/28/19 10:16 Dose: 1 mg Zolpidem Tartrate (Ambien) 5 mg PO HS PRN PRN Reason: Insomnia Stop: 05/24/19 10:19 Physical Exam: Patient continues to be Agitated and is still very Psychotic. General: demented, NAD HEENT: NC/AT, PERRLA Neck: Supple, No JVD Lungs: CTAB Cardiovascular: RRR, Normal S1, Normal S2 Abdomen: soft, non-tender, non-distended Extremities: excoriation Neurological: no change, unable to follow command Internal Medicine Assmt/Plan - Assessment Assessment: Htn. Dyslipidemia. Agitated. Dementia. Diabetes. Psychosis. - Plan Plan: Continuation of care. Monitor Labs. Monitor vitals, Continue BP meds as directed. Accu-check daily, Insulin coverage sliding scale. Monitor Diet/Nutritional support. Supportive care. Continue collaborating with consulting specialists, case management and nursing team. Will Monitor patient and continue present care management. Nutritional Asmnt/Malnutr-PDOC - Dietary Evaluation Malnutrition Findings (Please click <Entered> for more info): Nutritional Asmnt/Malnutrition Start: 03/20/19 09: 27 Text: Status: Complete Freq: Protocol: Document 03/20/19 09:27 ABI (Rec: 03/20/19 10:09 ABI BARON- [email or web address]) Nutritional Asmnt/Malnutrition Patient General Information Nutritional Screening Moderate Risk Diagnosis Psychosis Pertinent Medical Hx/Surgical Hx Hyperlipidemia, gout, afib, psychosis Subjective Information Patient was admitted from SNF. In bed at time of visit, lunch being served at this time. Per RN note, patient is withdrawn, flat affect, depressed. Nutrition education not appropriate at this time. Tolerating current diet witha adequate intake. Current Diet Order/ Nutrition Support Cardiac Patient / S.O Not Indicated Pertinent Medications maalox, lipitor, oscal W/d, colace, omega 3, humalog, MOM, Theragran Pertinent Labs (03/16) Na 135 Nutritional Hx/Data Height 1.57 m Height (Calculated Centimeters) 157.5 Current Weight (lbs) 53.977 kg Weight (Calculated Kilograms) 54.0 Weight (Calculated Grams) 68338.5 [place] Body Weight 110 % [place] Body Weight 108 Body Mass Index (BMI) 21.7 Recent Weight Change No Weight Status Approriate GI Symptoms GI Symptoms None Last BM 03/18 x 1 Difficult in: None Food Allergies No Cultural/Ethnic/Denominational Belief none indicated Usual diet at home unknown Skin Integrity/Comment: Intact, Georgi 18 Current %PO Good (75-100%) Estimated Nutritional Goals BEE in Kcals: Using Current wt Calories/Kcals/Kg 25-30 kcal/kg using 54kg CBW Kcals Calculated ~6530-8531 kcal/day Protein: Using Current wt Protein g/k-1.2 gm/kg Protein Calculated ~55-65 gm/day Fluid: ml ~0354-0882 kcal/day Nutritional Problem No current Nutrition Prob Problem No nutrition diagnosis at this time Intervention/Recommendation Comments 1. Continue cardiac diet as tolerated by patient. Expected Outcomes/Goals Expected Outcomes/Goals oral intake >75% of meals, weight stable, nutrition related labs WNL F/U LR 03/27
[2019-03-28] MEDS: Atorvastatin Calcium 10 MG TAB PO SCH (21:40)
[2019-03-29] MEDS: INSULIN LISPRO SLIDING SCALE 100 UNITS/ML UNIT SUBQ SCH ×5 (07:07→20:25)
[2019-03-29] MEDS: Calcium Carb/Vit D 500 mg/200 U Tab PO SCH (09:01)
[2019-03-29] MEDS: Multivitamin Tab PO SCH (09:01)
[2019-03-29] MEDS: Fish Oil 1,000 MG SGL PO SCH (09:01)
[2019-03-29] MEDS: risperiDONE 1 mg/mL 30 mL Bottle PO SCH ×2 (09:02→17:08)
--- NOTE | 2019-03-29 10:12 | Internal Medicine Prog Note ---
Internal Medicine Subjective - Subjective Service Date: 03/29/19 Patient seen and examined:: with staff Patient is:: asleep, verbal, arousable, in bed, agitated, confused Patient Complaints of:: other (Easily agitated and becomes very angry.) Per staff patient has:: no adverse event, no episodes of fall, agitated, noncompliant, refusing care (refusing meds) Internal Medicine Objective - Results Result Diagrams: 03/16/19 14:15 03/16/19 14:15 Recent Labs: Laboratory Last Values WBC 5.3 Th/cmm (4.8-10.8) 03/16/19 14:15 RBC 4.70 Mil/cmm (3.80-5.20) 03/16/19 14:15 Hgb 13.1 gm/dL (12-16) 03/16/19 14:15 Hct 39.0 % (41.0-60) L 03/16/19 14:15 MCV 82.9 fl (81-100) 03/16/19 14:15 MCH 27.9 pg (27.0-31.0) 03/16/19 14:15 MCHC Differential 33.6 pg (28.0-36.0) 03/16/19 14:15 RDW 13.1 % (11.5-20.0) 03/16/19 14:15 Plt Count 219 Th/cmm (150-400) 03/16/19 14:15 MPV 7.8 fl 03/16/19 14:15 Neutrophils % 63.6 % (40.0-80.0) 03/16/19 14:15 Lymphocytes % 29.1 % (20.0-50.0) 03/16/19 14:15 Monocytes % 5.3 % (2.0-10.0) 03/16/19 14:15 Eosinophils % 1.9 % (0.0-5.0) 03/16/19 14:15 Basophils % 0.1 % (0.0-2.0) 03/16/19 14:15 Sodium 135 mEq/L (136-145) L 03/16/19 14:15 Potassium 4.2 mEq/L (3.5-5.1) 03/16/19 14:15 Chloride 106 mEq/L (98-107) 03/16/19 14:15 Carbon Dioxide 23.2 mEq/L (21.0-31.0) 03/16/19 14:15 Anion Gap 10.0 (7.0-16.0) 03/16/19 14:15 BUN 30 mg/dL (7-25) H 03/16/19 14:15 Creatinine 0.9 mg/dL (0.6-1.2) 03/16/19 14:15 Est GFR ( Amer) TNP 03/16/19 14:15 Est GFR (Non-Af Amer) TNP 03/16/19 14:15 BUN/Creatinine Ratio 33.3 03/16/19 14:15 Glucose 113 mg/dL (70-105) H 03/16/19 14:15 POC Glucose 137 MG/DL (70 - 105) H 03/18/19 06:33 Calcium 8.5 mg/dL (8.6-10.3) L 03/16/19 14:15 Total Bilirubin 0.3 mg/dL (0.3-1.0) 03/16/19 14:15 AST 13 U/L (13-39) 03/16/19 14:15 ALT 11 U/L (7-52) 03/16/19 14:15 Alkaline Phosphatase 44 U/L (34-104) 03/16/19 14:15 Troponin I 0.01 ng/mL (0.01-0.05) 03/16/19 14:15 Total Protein 6.0 gm/dL (6.0-8.3) 03/16/19 14:15 Albumin 3.7 gm/dL (3.7-5.3) 03/16/19 14:15 Globulin 2.3 gm/dL 03/16/19 14:15 Albumin/Globulin Ratio 1.6 (1.0-1.8) 03/16/19 14:15 Triglycerides 122 mg/dL (<150) 03/16/19 14:15 Cholesterol 123 mg/dL (<200) 03/16/19 14:15 LDL Cholesterol Direct 79 mg/dL (75-193) 03/16/19 14:15 HDL Cholesterol 37 mg/dL (23-92) 03/16/19 14:15 TSH 1.64 uIU/ml (0.34-5.60) 03/16/19 14:15 Salicylates < 25.0 mg/L (30.0-100.0) L 03/16/19 14:15 Acetaminophen < 10.0 ug/mL (10.0-30.0) L 03/16/19 14:15 Ethyl Alcohol < 10 mg/dL (0-10) 03/16/19 14:15 RPR NONREACTIVE (NONREACTIVE) 03/16/19 14:15 - Physical Exam Vitals and I&O: Vital Signs Temp 98.1 F 03/29/19 06:54 Pulse 63 03/29/19 09:01 Resp 18 03/29/19 06:54 BP 106/63 03/29/19 09:01 Pulse Ox 98 03/29/19 06:54 Intake & Output 03/28/19 03/29/19 03/29/19 18:59 06:59 18:59 Intake Total 800 120 Balance 800 120 Intake: Oral 800 120 Other: # Voids 3 3 # Bowel Movements 0 Active Medications: Current Medications Acetaminophen (Tylenol) 650 mg PO Q4HR PRN PRN Reason: Mild Pain / Temp above 100 Stop: 05/15/19 16:18 Last Admin: 03/22/19 03:51 Dose: 650 mg Al Hydrox/Mg Hydrox/Simethicone (Maalox) 30 ml PO Q4HR PRN PRN Reason: GI DISTRESS Stop: 05/15/19 16:18 Atorvastatin Calcium (Lipitor) 20 mg PO HS [facility]; Protocol Stop: 05/15/19 20:59 Last Admin: 03/28/19 21:40 Dose: 20 mg Calcium/Vitamin D (Oscal W/Vitamin D) 1 tab PO DAILY [facility] Stop: 05/16/19 08:59 Last Admin: 03/29/19 09:01 Dose: 1 tab Docusate Sodium (Colace) 100 mg PO DAILY [facility] Stop: 05/16/19 08:59 Last Admin: 03/29/19 09:01 Dose: 100 mg Fish Oil ([place] 3) 1,000 mg PO DAILY [facility] Stop: 05/16/19 08:59 Last Admin: 03/29/19 09:01 Dose: 1,000 mg Insulin Human Lispro (Humalog Insulin Sliding Scale) 0 units SUBQ ACHS [facility]; Protocol Stop: 05/16/19 16:29 Last Admin: 03/29/19 07:09 Dose: Not Given Lisinopril (Zestril) 20 mg PO HS YE Stop: 05/15/19 20:59 Last Admin: 03/28/19 21:53 Dose: 20 mg Lorazepam (Ativan) 1 mg PO Q8H PRN; Protocol PRN Reason: Agitation Stop: 05/15/19 18:29 Lorazepam (Ativan) 0.5 mg PO Q4HR PRN; Protocol PRN Reason: Anxiety Stop: 05/24/19 10:18 Magnesium Hydroxide (Milk Of Magnesia) 30 ml PO HS PRN PRN Reason: Constipation Memantine (Namenda) 10 mg PO BID YE Stop: 05/16/19 08:59 Last Admin: 03/29/19 09:01 Dose: 10 mg Metoprolol Tartrate (Lopressor) 37.5 mg PO DAILY [facility] Stop: 05/16/19 08:59 Last Admin: 03/29/19 09:01 Dose: Not Given Multivitamins/Vitamin C (Theragran) 1 tab PO DAILY [facility] Stop: 05/16/19 08:59 Last Admin: 03/29/19 09:01 Dose: 1 tab Risperidone (Risperdal) 1 mg PO BID [facility]; Protocol Stop: 05/21/19 08:59 Last Admin: 03/29/19 09:02 Dose: 1 mg Zolpidem Tartrate (Ambien) 5 mg PO HS PRN PRN Reason: Insomnia Stop: 05/24/19 10:19 Physical Exam: Patient continues to have psychotic behavior. General: demented, NAD HEENT: NC/AT, PERRLA Neck: Supple, No JVD Lungs: CTAB Cardiovascular: RRR, Normal S1, Normal S2 Abdomen: soft, non-tender, non-distended Extremities: excoriation Neurological: no change, unable to follow command Internal Medicine Assmt/Plan - Assessment Assessment: Htn. Dyslipidemia. Agitated. Dementia. Diabetes. Psychosis. - Plan Plan: Continuation of care. Monitor Labs. Monitor vitals, Continue BP meds as directed. Accu-check daily, Insulin coverage sliding scale. Monitor Diet/Nutritional support. Supportive care. Continue collaborating with consulting specialists, case management and nursing team. Will Monitor patient and continue present care management. Nutritional Asmnt/Malnutr-PDOC - Dietary Evaluation Malnutrition Findings (Please click <Entered> for more info): Nutritional Asmnt/Malnutrition Start: 03/20/19 09: 27 Text: Status: Complete Freq: Protocol: Document 03/20/19 09:27 DENYSLali (Rec: 03/20/19 10:09 ABI TOD- [email or web address]) Nutritional Asmnt/Malnutrition Patient General Information Nutritional Screening Moderate Risk Diagnosis Psychosis Pertinent Medical Hx/Surgical Hx Hyperlipidemia, gout, afib, psychosis Subjective Information Patient was admitted from SNF. In bed at time of visit, lunch being served at this time. Per RN note, patient is withdrawn, flat affect, depressed. Nutrition education not appropriate at this time. Tolerating current diet witha adequate intake. Current Diet Order/ Nutrition Support Cardiac Patient / S.O Not Indicated Pertinent Medications maalox, lipitor, oscal W/d, colace, omega 3, humalog, MOM, Theragran Pertinent Labs (03/16) Na 135 Nutritional Hx/Data Height 1.57 m Height (Calculated Centimeters) 157.5 Current Weight (lbs) 53.977 kg Weight (Calculated Kilograms) 54.0 Weight (Calculated Grams) 32271.5 [place] Body Weight 110 % [place] Body Weight 108 Body Mass Index (BMI) 21.7 Recent Weight Change No Weight Status Approriate GI Symptoms GI Symptoms None Last BM 03/18 x 1 Difficult in: None Food Allergies No Cultural/Ethnic/Islam Belief none indicated Usual diet at home unknown Skin Integrity/Comment: Intact, Georgi 18 Current %PO Good (75-100%) Estimated Nutritional Goals BEE in Kcals: Using Current wt Calories/Kcals/Kg 25-30 kcal/kg using 54kg CBW Kcals Calculated ~4412-8386 kcal/day Protein: Using Current wt Protein g/k-1.2 gm/kg Protein Calculated ~55-65 gm/day Fluid: ml ~7155-3631 kcal/day Nutritional Problem No current Nutrition Prob Problem No nutrition diagnosis at this time Intervention/Recommendation Comments 1. Continue cardiac diet as tolerated by patient. Expected Outcomes/Goals Expected Outcomes/Goals oral intake >75% of meals, weight stable, nutrition related labs WNL F/U LR 03/27
--- NOTE | 2019-03-29 14:41 | Progress Notes ---
DATE: 03/28/2019 SUBJECTIVE: Chart reviewed and the patient interviewed. Also discussed the patient's condition with the staff and reviewed records and labs. The patient remains agitated and she still had a period of aggression and striking out. The patient also still has loud tone of voice and confused and needs lots of redirections. She also wants to be left alone. Also, the patient is still trying to scratch staff, especially when they try to help her with her ADLs. Otherwise, the patient is compliant with taking her medications and she continues to take Risperdal and Namenda with no side effects. ASSESSMENT: The patient is still confused and still agitated. TREATMENT PLAN: Continue to monitor her behavior and her condition closely. Also, continue to work on her confusion and poor impulse control and adjusting psychotropic medications, and we will continue to follow up. JOB# [id number]
--- NOTE | 2019-03-29 18:55 | Progress Notes ---
DATE: 03/29/2019 SUBJECTIVE: Chart reviewed and the patient interviewed. Also discussed the patient's condition with the staff and reviewed records and labs. The patient is still paranoid and suspicious and she is still loud speaking. The patient also still gets angry easily. The patient also is still having disorganized thoughts and her thought processes are circumstantial and tangential. On the other hand, the patient is compliant with taking her medications with no side effects of medications. ASSESSMENT: The patient is still confused and agitated. TREATMENT PLAN: Risperdal was increased to 1 mg twice a day. We will continue same dose. Also, continue monitoring her behavior and her condition closely and work on her impulse control. JOB# [id number]
[2019-03-29] MEDS: Atorvastatin Calcium 10 MG TAB PO SCH (20:25)
[2019-03-30] MEDS: INSULIN LISPRO SLIDING SCALE 100 UNITS/ML UNIT SUBQ SCH ×3 (06:32→18:01)
[2019-03-30] MEDS: Calcium Carb/Vit D 500 mg/200 U Tab PO SCH (08:37)
[2019-03-30] MEDS: Fish Oil 1,000 MG SGL PO SCH (08:37)
[2019-03-30] MEDS: risperiDONE 1 mg/mL 30 mL Bottle PO SCH ×2 (08:40→18:09)
[2019-03-30] MEDS: Multivitamin Tab PO SCH (08:40)
--- NOTE | 2019-03-30 15:58 | Discharge Summary ---
DATE OF DISCHARGE: 03/30/2019 The patient's age 88. SEX: Female. PHYSICIAN: Dr. Stewart. FINAL DIAGNOSIS AND PRIMARY DIAGNOSIS: Unspecified psychosis. SECONDARY DIAGNOSES: Dementia, moderate to severe, with psychotic features and behavioral disturbances. REASON FOR HOSPITALIZATION: The patient was admitted to the hospital from [facility] because of increased agitation and irritability and the patient was verbally aggressive with peers and staff in the facility and also started to strike out at others and the patient was transferred to the hospital. HOSPITAL COURSE: The patient was agitated and in irritable mood. The patient also was angry and wanted to be left alone. The patient was on Prozac that was decreased to 20 mg every day. The patient continued to take Namenda 10 mg twice a day and also Seroquel was added and adjusted to 25 mg in the morning and 50 mg at bedtime. Gradually, the patient's affect was brighter. The patient was less irritable and less agitated. She also was interacting more with peers and others. The patient was not suicidal or homicidal, and also was easier to redirect her. PHYSICAL EXAMINATION: The patient showed no major medical problems. Blood workup was also basically within normal. AFTER DISCHARGE PLANS: The patient discharged from the hospital to [facility] with plans for outpatient treatment and followup there. EXPECTED OUTCOME AFTER DISCHARGE: Fair if the patient continues with her outpatient treatment and if she followed up with discharge plans. [facility]# [id number]
--- NOTE | 2019-03-30 16:03 | Internal Medicine Prog Note ---
Internal Medicine Subjective - Subjective Service Date: 03/30/19 Patient is:: asleep, verbal, arousable, in bed, agitated, confused Patient Complaints of:: other (Easily agitated and becomes very angry.) Per staff patient has:: no adverse event, no episodes of fall, agitated, noncompliant, refusing care (refusing meds) Internal Medicine Objective - Results Result Diagrams: 03/16/19 14:15 03/16/19 14:15 Recent Labs: Laboratory Last Values WBC 5.3 Th/cmm (4.8-10.8) 03/16/19 14:15 RBC 4.70 Mil/cmm (3.80-5.20) 03/16/19 14:15 Hgb 13.1 gm/dL (12-16) 03/16/19 14:15 Hct 39.0 % (41.0-60) L 03/16/19 14:15 MCV 82.9 fl (81-100) 03/16/19 14:15 MCH 27.9 pg (27.0-31.0) 03/16/19 14:15 MCHC Differential 33.6 pg (28.0-36.0) 03/16/19 14:15 RDW 13.1 % (11.5-20.0) 03/16/19 14:15 Plt Count 219 Th/cmm (150-400) 03/16/19 14:15 MPV 7.8 fl 03/16/19 14:15 Neutrophils % 63.6 % (40.0-80.0) 03/16/19 14:15 Lymphocytes % 29.1 % (20.0-50.0) 03/16/19 14:15 Monocytes % 5.3 % (2.0-10.0) 03/16/19 14:15 Eosinophils % 1.9 % (0.0-5.0) 03/16/19 14:15 Basophils % 0.1 % (0.0-2.0) 03/16/19 14:15 Sodium 135 mEq/L (136-145) L 03/16/19 14:15 Potassium 4.2 mEq/L (3.5-5.1) 03/16/19 14:15 Chloride 106 mEq/L (98-107) 03/16/19 14:15 Carbon Dioxide 23.2 mEq/L (21.0-31.0) 03/16/19 14:15 Anion Gap 10.0 (7.0-16.0) 03/16/19 14:15 BUN 30 mg/dL (7-25) H 03/16/19 14:15 Creatinine 0.9 mg/dL (0.6-1.2) 03/16/19 14:15 Est GFR ( Amer) TNP 03/16/19 14:15 Est GFR (Non-Af Amer) TNP 03/16/19 14:15 BUN/Creatinine Ratio 33.3 03/16/19 14:15 Glucose 113 mg/dL (70-105) H 03/16/19 14:15 POC Glucose 137 MG/DL (70 - 105) H 03/18/19 06:33 Calcium 8.5 mg/dL (8.6-10.3) L 03/16/19 14:15 Total Bilirubin 0.3 mg/dL (0.3-1.0) 03/16/19 14:15 AST 13 U/L (13-39) 03/16/19 14:15 ALT 11 U/L (7-52) 03/16/19 14:15 Alkaline Phosphatase 44 U/L (34-104) 03/16/19 14:15 Troponin I 0.01 ng/mL (0.01-0.05) 03/16/19 14:15 Total Protein 6.0 gm/dL (6.0-8.3) 03/16/19 14:15 Albumin 3.7 gm/dL (3.7-5.3) 03/16/19 14:15 Globulin 2.3 gm/dL 03/16/19 14:15 Albumin/Globulin Ratio 1.6 (1.0-1.8) 03/16/19 14:15 Triglycerides 122 mg/dL (<150) 03/16/19 14:15 Cholesterol 123 mg/dL (<200) 03/16/19 14:15 LDL Cholesterol Direct 79 mg/dL (75-193) 03/16/19 14:15 HDL Cholesterol 37 mg/dL (23-92) 03/16/19 14:15 TSH 1.64 uIU/ml (0.34-5.60) 03/16/19 14:15 Salicylates < 25.0 mg/L (30.0-100.0) L 03/16/19 14:15 Acetaminophen < 10.0 ug/mL (10.0-30.0) L 03/16/19 14:15 Ethyl Alcohol < 10 mg/dL (0-10) 03/16/19 14:15 RPR NONREACTIVE (NONREACTIVE) 03/16/19 14:15 - Physical Exam Vitals and I&O: Vital Signs Temp 98.3 F 03/30/19 14:00 Pulse 76 03/30/19 14:00 Resp 20 03/30/19 14:00 BP 98/62 03/30/19 14:00 Pulse Ox 96 03/30/19 14:00 Intake & Output 03/29/19 03/30/19 03/30/19 18:59 06:59 18:59 Intake Total 720 60 Balance 720 60 Intake: Oral 720 60 Other: # Voids 3 1 # Bowel Movements 0 0 Active Medications: Current Medications Acetaminophen (Tylenol) 650 mg PO Q4HR PRN PRN Reason: Mild Pain / Temp above 100 Stop: 05/15/19 16:18 Last Admin: 03/22/19 03:51 Dose: 650 mg Al Hydrox/Mg Hydrox/Simethicone (Maalox) 30 ml PO Q4HR PRN PRN Reason: GI DISTRESS Stop: 05/15/19 16:18 Atorvastatin Calcium (Lipitor) 20 mg PO HS [facility]; Protocol Stop: 05/15/19 20:59 Last Admin: 03/29/19 20:25 Dose: 20 mg Calcium/Vitamin D (Oscal W/Vitamin D) 1 tab PO DAILY [facility] Stop: 05/16/19 08:59 Last Admin: 03/30/19 08:37 Dose: 1 tab Docusate Sodium (Colace) 100 mg PO DAILY [facility] Stop: 05/16/19 08:59 Last Admin: 03/30/19 08:38 Dose: 100 mg Fish Oil ([place] 3) 1,000 mg PO DAILY [facility] Stop: 05/16/19 08:59 Last Admin: 03/30/19 08:37 Dose: 1,000 mg Insulin Human Lispro (Humalog Insulin Sliding Scale) 0 units SUBQ ACHS [facility]; Protocol Stop: 05/16/19 16:29 Last Admin: 03/30/19 13:20 Dose: Not Given Lisinopril (Zestril) 20 mg PO HS YE Stop: 05/15/19 20:59 Last Admin: 03/29/19 20:25 Dose: 20 mg Lorazepam (Ativan) 1 mg PO Q8H PRN; Protocol PRN Reason: Agitation Stop: 05/15/19 18:29 Lorazepam (Ativan) 0.5 mg PO Q4HR PRN; Protocol PRN Reason: Anxiety Stop: 05/24/19 10:18 Magnesium Hydroxide (Milk Of Magnesia) 30 ml PO HS PRN PRN Reason: Constipation Memantine (Namenda) 10 mg PO BID YE Stop: 05/16/19 08:59 Last Admin: 03/30/19 08:37 Dose: 10 mg Metoprolol Tartrate (Lopressor) 37.5 mg PO DAILY YE Stop: 05/16/19 08:59 Last Admin: 03/30/19 08:38 Dose: Not Given Multivitamins/Vitamin C (Theragran) 1 tab PO DAILY YE Stop: 05/16/19 08:59 Last Admin: 03/30/19 08:40 Dose: 1 tab Risperidone (Risperdal) 1 mg PO BID YE; Protocol Stop: 05/21/19 08:59 Last Admin: 03/30/19 08:40 Dose: 1 mg Zolpidem Tartrate (Ambien) 5 mg PO HS PRN PRN Reason: Insomnia Stop: 05/24/19 10:19 General: demented, NAD HEENT: NC/AT, PERRLA Neck: Supple, No JVD Lungs: CTAB Cardiovascular: RRR, Normal S1, Normal S2 Abdomen: soft, non-tender, non-distended Extremities: excoriation Neurological: no change, unable to follow command Internal Medicine Assmt/Plan - Assessment Assessment: HTN Dyslipidemia agitation Dementia - Plan Plan: continue home meds accucheck ac+hs with sliding scale fall precautions continue current plan of care Nutritional Asmnt/Malnutr-PDOC - Dietary Evaluation Malnutrition Findings (Please click <Entered> for more info): Nutritional Asmnt/Malnutrition Start: 03/20/19 09: 27 Text: Status: Complete Freq: Protocol: Document 03/20/19 09:27 ABI (Rec: 03/20/19 10:09 ABI BARON- [email or web address]) Nutritional Asmnt/Malnutrition Patient General Information Nutritional Screening Moderate Risk Diagnosis Psychosis Pertinent Medical Hx/Surgical Hx Hyperlipidemia, gout, afib, psychosis Subjective Information Patient was admitted from SNF. In bed at time of visit, lunch being served at this time. Per RN note, patient is withdrawn, flat affect, depressed. Nutrition education not appropriate at this time. Tolerating current diet witha adequate intake. Current Diet Order/ Nutrition Support Cardiac Patient / S.O Not Indicated Pertinent Medications maalox, lipitor, oscal W/d, colace, omega 3, humalog, MOM, Theragran Pertinent Labs (03/16) Na 135 Nutritional Hx/Data Height 5 ft 2 in Height (Calculated Centimeters) 157.5 Current Weight (lbs) 119 lb Weight (Calculated Kilograms) 54.0 Weight (Calculated Grams) 57237.5 [place] Body Weight 110 % [place] Body Weight 108 Body Mass Index (BMI) 21.7 Recent Weight Change No Weight Status Approriate GI Symptoms GI Symptoms None Last BM 03/18 x 1 Difficult in: None Food Allergies No Cultural/Ethnic/Cheondoism Belief none indicated Usual diet at home unknown Skin Integrity/Comment: Intact, Georgi 18 Current %PO Good (75-100%) Estimated Nutritional Goals BEE in Kcals: Using Current wt Calories/Kcals/Kg 25-30 kcal/kg using 54kg CBW Kcals Calculated ~7844-6392 kcal/day Protein: Using Current wt Protein g/k-1.2 gm/kg Protein Calculated ~55-65 gm/day Fluid: ml ~2477-8306 kcal/day Nutritional Problem No current Nutrition Prob Problem No nutrition diagnosis at this time Intervention/Recommendation Comments 1. Continue cardiac diet as tolerated by patient. Expected Outcomes/Goals Expected Outcomes/Goals oral intake >75% of meals, weight stable, nutrition related labs WNL F/U LR 03/27
== END 2019-03-30 19:10 | DRG 885 ==
LOC: ER 13:45 → GERO 15:40
PROVIDERS: ADMIT Psychiatry & Neurology Psychiatry; ATTEND Psychiatry & Neurology Psychiatry
DX: F29 Unspecified psychosis not due to a substance or known physiological condition (principal); F03.91 Unspecified dementia, unspecified severity, with behavioral disturbance; I10 Essential (primary) hypertension; E78.5 Hyperlipidemia, unspecified; F32.9 Major depressive disorder, single episode, unspecified; M19.90 Unspecified osteoarthritis, unspecified site; E11.9 Type 2 diabetes mellitus without complications; Z88.8 Allergy status to other drugs, medicaments and biological substances; Z91.040 Latex allergy status; Z79.899 Other long term (current) drug therapy
CPT/HCPCS: 36415-UA; 80053-TC; 80061-TC; 80320-TC; 80329-TC; 82948-90; 83036-90; 84443-TC; 84484-TC; 85025-TC; 86592-TC; 93005; 97530; X3904; Z7610